=== PATIENT | male | born 1990 | race Caucasian/White ===

== ENCOUNTER → 2019-02-09 11:49 | Outpatient (CLI) | payer OTHER, MEDICAID, SELFPAY ==
[2019-02-09 12:50] LABS: Hematocrit 43.3 % (40-54); Hemoglobin 14.8 g/dL (13.0-16.5); Mean Corp Hgb Conc 34.2 g/dL (32-36); Mean Corpuscular Hgb 29.1 pg (27.0-32.0); Mean Corpuscular Volume 85.2 fL (80-94); Mean Platelet Vol. 11.2 fl (6.2-12.0); Platelet Count 159 K/mm3 (150-450); RBC Distribution Width CV 12.4 % (11.6-14.6); RBC Distribution Width SD 38.5 fl (35.1-43.9); Red Blood Count 5.08 M/mm3 (4.6-6.2); White Blood Count 3.2 K/mm3 (4.4-11.0)
[2019-02-09 13:22] LABS: Vitamin B12 734 pg/mL (211-911); Vitamin D,25 Hydroxy 38.8 ng/mL (29.95-100.01)
[2019-02-09 13:24] LABS: ALB/GLOB Ratio 1.3 RATIO (0.9-2.4); AST(SGOT) 19 U/L (15-37); Alanine Aminotransfer ALT/SGPT 29 U/L (16-61); Albumin, Serum 4.3 g/dL (3.2-5.0); Alkaline Phosphatase 98 U/L (45-117); Anion Gap 6 (5-15); BUN 18 mg/dL (7-18); BUN/Creat Ratio 16.2 RATIO (10-20); Calcium,Total 9.2 mg/dL (8.5-10.1); Chloride 106 mmol/L (98-107); Creatinine, Serum 1.11 mg/dL (0.70-1.30); EST Glomerular Filtration Rate 85 mL/min (>60); Est Glom Filt Rate - Afr Amer 102 mL/min (>60); Globulin 3.3 g/dL (2.2-4.2); Glucose 99 mg/dL (74-106); Potassium 3.9 mmol/L (3.5-5.1); Prolactin 25.4 ng/mL; Protein, Total 7.6 g/dL (6.4-8.2); Sodium Level 140 mmol/L (136-145); Thyroid Stim Hormone (TSH) 0.88 uIU/mL (0.358-3.74)
== END ==
PROVIDERS: Family Provider Family Medicine; PCP Family Medicine; Referring Provider Psychiatry & Neurology Psychiatry; Visit Provider Psychiatry & Neurology Psychiatry
DX: Z79.899 Other long term (current) drug therapy (principal); F19.10 Other psychoactive substance abuse, uncomplicated; R53.83 Other fatigue
CPT/HCPCS: 36415; 80053; 82306; 82607; 84146; 84443; 85027

== ENCOUNTER → 2021-03-14 08:40 | Outpatient (CLI) | payer MEDICAID, SELFPAY | PROVIDERS: PCP Family Medicine; Referring Provider Physician Assistant; Visit Provider Physician Assistant | DX: Z11.52 Encounter for screening for COVID-19 (principal) | CPT/HCPCS: 87635; U0005; U0003 ==

== ENCOUNTER 2021-07-13 22:43 | Emergency (ER) | payer MEDICAID, SELFPAY ==
[2021-07-13 22:43] VITALS: BP 125/84; PULSE 123; RESP 16; TEMP 36.5; O2SAT 99; BMI 26.4
--- NOTE | 2021-07-13 23:04 | EX.ED.DYSGE1 ---
HPI History of Present Illness Chief Complaint: Other, Pain/Inj Narrative Narrative: Patient presents with concern with bumps behind his left ear and on his left neck. He states that he had a sore throat yesterday and was seen at [facility]. He was diagnosed with allergies. His sore throat resolved. He denies any fever or chills. No nausea or vomiting. He states his strep test was also negative. He became concerned because he noticed a bump behind his left ear, and one on his neck that is mildly tender to touch. He states that he was laying in bed and feeling these bumps. Additionally, he shaved his head yesterday with hair clippers, and had ingrown hairs that he had been popping. He presents because of the concern of the bumps on his neck and behind his ear. He wants to know what they are and thinks that they are probably inflamed lymph nodes. [facility] Medical History Bipolar 1 disorder, depressed Murmur Physical exam, pre-employment Tourettes syndrome Home Medications oxycodone-acetaminophen 1 - 2 tab PO Q4H PRN PRN #12 tab 10/10/13 [Rx Last Taken Unknown] clomipramine 50 mg PO QHS 07/13/21 [History Last Taken Unknown] clonazepam 0.5 mg PO DAILY PRN 07/13/21 [History Last Taken Unknown] fluphenazine HCl 5 mg PO DAILY 07/13/21 [History Last Taken Unknown] Allergy/AdvReac Type Severity Reaction Status Date / Time amoxicillin Allergy Hives Verified 07/13/21 22:46 Social History Smoking Status: Never smoker ROS ROS ED ROS Narrative Constitutional: No fever, no chills. HEENT: No sore throat. No neck pain. No loss of vision. No rhinorrhea. Bumps behind left ear and on left neck. Cardiovascular: No chest pain. No palpitations. No pedal edema. Respiratory: No cough, no shortness of breath. Abdominal: No abdominal pain. No nausea. No vomiting. Genitourinary: No dysuria. No hematuria. Musculoskeletal: No myalgias. No arthralgias. Neurologic: No headaches. No dizziness. No lightheadedness. Skin: No rash. No change in color. Ingrown hairs on head. Psychiatric: No depression. No anxiety. EXAM Physical Exam Narrative Exam Narrative: Afebrile. Vital signs noted. Nontoxic-appearing. HEENT: Normocephalic. Atraumatic. PERRL, EOMI. Neck soft and supple. No point tenderness or step off. Areas of excoriation on left side of scalp, no fluctuance or crepitance. Noted posterior auricular lymph node that is movable. Swollen lymph node on cervical lymph chain. No erythema. Airway patent. No drooling or trismus. Cardiovascular: Mild tachycardia. No murmurs, rubs, or gallops appreciated. Respiratory: No tachypnea. Lungs clear to auscultation bilaterally. Gastrointestinal: Abdomen soft, nontender, with normoactive bowel sounds. No rebound or guarding. Neurological: Awake. Alert. Nonfocal, nonlateralizing. Skin: No rash. Normal color. No pallor. Musculoskeletal: No pedal edema. Full range of motion extremities. Const Vital Signs: 07/13/21 22:43 07/13/21 22:54 Temperature 97.7 F L Temperature Source Temporal Pulse Rate 123 H Respiratory Rate 16 Respiratory Effort Normal Non-Labored Respiratory Pattern Normal Blood Pressure 125/84 H Blood Pressure Mean 97 Pulse Ox 99 Oxygen Delivery Method Room Air MDM MDM MDM Narrative Medical decision making narrative: I feel that the patient has mild folliculitis from shaving his head with clippers yesterday. The patient does have past medical history of anxiety and takes clonazepam. I do feel his tachycardia might be explained by his anxiety over this. I do not feel any testing is indicated. He was reassured. I do feel that these are reactionary lymph nodes from a simple folliculitis. I do not feel that he needs antibiotics at this point. He was told to apply warm compresses. He will follow-up with his primary care provider. Return instructions were reviewed. Disposition is discharged home in stable condition. Discharge Plan Triage Chief Complaint: Other, Pain/Inj ED Provider: Provider,Ed Physician Dx/Rx/DC Orders Clinical Impression: Folliculitis, Lymphadenitis Instructions: ED Adenitis Cervical No Abx Tx, ED Folliculitis Prescriptions: No Action oxycodone-acetaminophen 1 TABLET tablet 1 - 2 tab PO Q4H PRN PRN (Reason: Pain) Qty: 12 RF: 0 fluphenazine HCl 5 mg tablet 5 mg PO DAILY RF: 0 clomipramine 50 mg capsule 50 mg PO QHS RF: 0 clonazepam 0.5 mg tablet 0.5 mg PO DAILY PRN (Reason: Anxiety) RF: 0 Primary Care Provider: David Irving Referrals: David Irving DO [Primary Care Provider] - 1 Week Disposition Disposition: Home, Self Care
== END 2021-07-13 23:11 | disposition home or self-care (01) ==
PROVIDERS: Emergency Provider Emergency Medicine; PCP Student in an Organized Health Care Education/Training Program; Visit Provider Emergency Medicine
DX: L73.9 Follicular disorder, unspecified (principal); F31.9 Bipolar disorder, unspecified; F41.9 Anxiety disorder, unspecified; L02.821 Furuncle of head [any part, except face]; I88.9 Nonspecific lymphadenitis, unspecified
CPT/HCPCS: 99282

== ENCOUNTER 2021-10-16 22:15 | Emergency (ER) | payer MEDICAID, SELFPAY ==
[2021-10-16 22:16] VITALS: BP 133/89; PULSE 106; RESP 16; TEMP 36.2; O2SAT 100; BMI 26.4
--- NOTE | 2021-10-16 22:59 | EDS_ITS ---
HPI History of Present Illness Chief Complaint: Upper Extremity Injury Narrative Narrative: Patient is a 31-year-old male with past medical history of Tourette's. He states that over the past few days he has had increasing pain to his right shoulder region with no known trauma. He states that with the pain he will have intermittent numbness and tingling down to his hand. He states that he noticed when he was working out a few days ago that he cannot lift as much with his right arm as his left and noted pain in the shoulder region. He states he has tried [id number] medication with minimal symptom improvement and with the persistent symptoms comes in for evaluation [facility] Medical History Bipolar 1 disorder, depressed Murmur Physical exam, pre-employment Tourettes syndrome Home Medications clonazepam 0.5 mg tablet (Klonopin) 0.5 mg PO DAILY PRN Anxiety 07/13/21 [History Last Taken Unknown] fluphenazine HCl 5 mg tablet 5 mg PO DAILY 07/13/21 [History Last Taken Unknown] divalproex 500 mg tablet,extended release 24 hr 1 tab PO DAILY 10/16/21 [History Last Taken Unknown] methocarbamol 500 mg tablet 1,000 mg PO 4X/DAY PRN PRN Muscle pain/spasm #56 tabs 10/16/21 [Rx Last Taken Unknown] Allergy/AdvReac Type Severity Reaction Status Date / Time amoxicillin Allergy Hives Verified 10/16/21 22:21 Social History Smoking Status: Never smoker [facility] ED Constitutional Constitutional ED: Denies chills or fever(s) ENT ENT ED: Denies sore throat Cardiovascular Cardiovascular: Denies chest pain Respiratory/Chest Respiratory/Chest: Denies cough or dyspnea Gastrointestinal Gastrointestinal: Denies abdominal pain, diarrhea, nausea or vomiting Genitourinary Genitourinary ED: Denies dysuria Musculoskeletal Musculoskeletal: Reports other Details: Positive right shoulder pain ; Denies back pain, myalgias or neck pain Integumentary Denies rash Neurologic Neurologic: Reports paresthesias; Denies headache(s) Hematologic/Lymphatic Hematologic/Lymphatic: Denies easy bleeding or easy bruising EXAM Physical Exam Const Vital Signs: 10/16/21 22:16 Temperature 97.1 F L Temperature Source Temporal Pulse Rate 106 H Respiratory Rate 16 Blood Pressure 133/89 H Blood Pressure Mean 103 Pulse Ox 100 Oxygen Delivery Method Room Air Positive well nourished and well developed General Appearance ED: well developed HEENT Reports moist mucous membranes Eyes PERRL and EOMs intact bilaterally Neck full ROM and supple Neck Narrative: No bony deformity or step-off of the cervical spine no midline pain with palpation. Negative Spurling sign bilaterally Resp normal respiratory effort and clear to auscultation bilaterally Cardio regular rate and regular rhythm Cardio Narrative: Radial pulses are plus 2 out of 4 bilaterally are equal and symmetric Extremity Extremity Narrative: Right upper extremity is neurovascularly intact; AIN/PIN are intact and normal. Active range of motion is decreased secondary to pain. There is pain on palpation over top the coracoid process indicating irritation to the proximal biceps tendon. Patient also has a positive speeds test. He also has increased pain with external rotation and front shoulder raising indicating possible supraspinatus tendon injury associate with the rotator cuff. Otherwise the compartments are soft and there is no overlying soft tissue changes to suggest trauma or infection Neuro oriented x3 and CN's II-XII intact bilaterally Sensorium / Orientation: alert Psych mental status grossly normal Skin no rashes or lesions noted MDM MDM MDM Narrative Medical decision making narrative: Patient presented to the ER in no acute distress with no report or signs of trauma. Clinically he has pain over top the coracoid process indicating proximal bicep tendinitis. However as he has pain with external rotation or front shoulder raising this also raises concern for inflammation or small tear to the supraspinatus tendon of the rotator cuff. We discussed possible x-ray secondary to his pain but as there is been no direct trauma and he would require an MRI to evaluate the rotator cuff we do not feel that is necessary for images at this time. Patient will be placed on symptomatic medications for the tendinitis and possible tendon injury and been instructed on rehab exercises but otherwise at this time is safe for discharge as there is no obvious signs of infection trauma or neurologic event. Discharge Plan Triage Chief Complaint: Upper Extremity Injury ED Provider: Richard Paul Dx/Rx/DC Orders Clinical Impression: Right rotator cuff tendonitis, Biceps tendinitis of right upper extremity Instructions: Rotator Cuff Injury, Biceps Tendonitis Proximal, Rotator Cuff Tendon Tear Prescriptions: New methocarbamol 500 mg tablet 1,000 mg PO 4X/DAY PRN PRN (Reason: Muscle pain/spasm) Qty: 56 1RF No Action fluphenazine HCl 5 mg tablet 5 mg PO DAILY clonazepam [Klonopin] 0.5 mg tablet 0.5 mg PO DAILY PRN (Reason: Anxiety) divalproex 500 mg tablet extended release 24 hr 1 tab PO DAILY Label Comments: take 1 tablet by mouth once daily Primary Care Provider: David Irving Referrals: David Irving DO [Primary Care Provider] - Activity Restrictions/Additional Instructions: Your history and exam is consistent with rotator cuff tear versus inflammation. Please perform rehab exercises and take your medication as directed to help control symptoms. If they persist please talk to her family doctor about an MRI to further assess the situation Disposition Disposition: Home, Self Care Discharge Date/Time: 10/16/21 23:39
[2021-10-16] MEDS: Orphenadrine 60 MG/2 ML Ampul IM (23:12)
[2021-10-16] MEDS: Ketorolac 30 MG/ML Syringe IM (23:12)
== END 2021-10-16 23:39 | disposition home or self-care (01) ==
PROVIDERS: Emergency Provider Emergency Medicine; PCP Student in an Organized Health Care Education/Training Program; Visit Provider Emergency Medicine
DX: M75.21 Bicipital tendinitis, right shoulder (principal); F31.9 Bipolar disorder, unspecified; F95.2 Tourette's disorder; Z79.899 Other long term (current) drug therapy; M75.81 Other shoulder lesions, right shoulder; X58.XXXA Exposure to other specified factors, initial encounter
CPT/HCPCS: 96372; 99282

== ENCOUNTER 2021-10-20 20:43 | Emergency (ER) | payer MEDICAID, SELFPAY ==
[2021-10-20 20:46] VITALS: BP 159/85; PULSE 106; RESP 14; TEMP 36.6; O2SAT 100; BMI 25.7
--- NOTE | 2021-10-20 21:00 | EDS_ITS ---
HPI HPI - Psych History of Present Illness Chief Complaint: Suicidal Informant: patient and parent Onset/Context/Timing Onset: Weeks Context: Gradual Onset Timing: Continuous Current Severity: Mild Maximum Severity: Moderate Associated Symptoms Associated Symptoms - Psych: Positive for Depressed Narrative Narrative: 31-year-old male has a history of recently being diagnosed with bipolar disorder, depression, anxiety, Tourette's and OCD. He is currently under the care of the [facility] and the last several months they have been adjusting his medications. Over the last week he and his mom is at bedside states that he has been more more depressed. He has made suicidal threats. He denies any attempt. He is given his family all his knives. There are guns in the house but they are locked up and he does not have access to the posada. He states he would shoot himself if available. He has never had a mental health admission. He has had no recent hospitalization. He denies any prior attempts. Prior similar symptoms: Yes Recent Illness/Hospitalization: No [facility] Medical History Bipolar 1 disorder, depressed Murmur Physical exam, pre-employment Tourettes syndrome Home Medications clonazepam 0.5 mg tablet (Klonopin) 0.5 mg PO DAILY PRN Anxiety 07/13/21 [History Last Taken Unknown] fluphenazine HCl 5 mg tablet 5 mg PO DAILY 07/13/21 [History Last Taken Unknown] divalproex 500 mg tablet,extended release 24 hr 1 tab PO DAILY 10/16/21 [History Last Taken Unknown] methocarbamol 500 mg tablet 1,000 mg PO 4X/DAY PRN PRN Muscle pain/spasm #56 tabs 10/16/21 [Rx Last Taken Unknown] Allergy/AdvReac Type Severity Reaction Status Date / Time amoxicillin Allergy Hives Verified 10/20/21 20:49 Social History Smoking Status: Never smoker ROS ROS ED ROS Narrative Denies recent illness. Review of Systems ROS Unobtainable: Denies due to encephalopathy Constitutional Constitutional ED: Denies chills or fever(s) Eyes Eyes: Denies blurry vision ENT ENT ED: Denies ear pain Cardiovascular Cardiovascular: Denies chest pain Respiratory/Chest Respiratory/Chest: Denies cough Gastrointestinal Gastrointestinal: Denies abdominal pain Genitourinary Genitourinary ED: Denies dysuria Musculoskeletal Musculoskeletal: Denies arthralgias Integumentary Denies abscess Neurologic Neurologic: Denies headache(s) Psychiatric Psychiatric: Reports anxiety, depression, suicidal ideation and suicidal thoughts Endocrine Endocrinology: Denies polydipsia Hematologic/Lymphatic Hematologic/Lymphatic: Denies easy bleeding Allergic/Immunologic Allergic/Immunologic ED: Denies mouth swelling EXAM Physical Exam Narrative Exam Narrative: Well-appearing 31-year-old male. Vital signs stable afebrile. No distress. Mom at bedside. H EENT exam unremarkable atraumatic. Neck nontender no trauma. Lungs clear to auscultation. Heart regular rhythm rate about 105 no murmur. Chest wall nontender. Abdomen soft nontender. Moving all 4 extremities. Nontender no deformity. No track kemp. No lacerations. Back nontender. Neurologically is awake and alert with no focal motor deficits. Patient is depressed. But he is awake and alert. He makes eye contact. He is forthcoming with information. Currently he is calm. He is interacting appropriately. Const Vital Signs: 10/20/21 20:46 Temperature 97.9 F Temperature Source Temporal Pulse Rate 106 H Respiratory Rate 14 Blood Pressure 159/85 H Blood Pressure Mean 109 Pulse Ox 100 Oxygen Delivery Method Room Air Positive well nourished and well developed; Negative for obese, cachectic, contractures or unkempt General Appearance ED: well developed; Negative for unkempt, cachectic, contractures or pallor Nutritional Appearance: Negative for cachectic or obese HEENT Reports moist mucous membranes normocephalic; Negative for atraumatic or trauma Eyes PERRL and EOMs intact bilaterally General Eye ED: Negative for pale conjunctiva or scleral icterus Neck no lymphadenopathy, supple and no JVD General: Negative for tenderness Resp normal respiratory effort and clear to auscultation bilaterally Effort and Inspection: Negative for retractions Auscultation: Negative for rales, rhonchi or wheezes Cardio S1 normal heart sound, S2 normal heart sound and no murmurs Palpation: Negative for other Rate: tachycardic; Negative for regular rate or bradycardia Rhythm: regular rhythm; Negative for abnormal rhythm GI non-tender, non-distended and no masses Inspection: Negative for abdominal distention Auscultation: normoactive bowel sounds Palpation: soft; Negative for tender or guarding Back/Spine no CVA tenderness General Back: Negative for CVA tenderness Cervical Spine: Negative for cervical spine tenderness Thoracic Spine / Upper Back: Negative for thoracic spinal tenderness Lumbar Spine / Lower Back: Negative for lumbar spinal tenderness Coccyx: Negative for other Extremity normal to inspection General Extremety ED: Negative for edema or tenderness General Extremity: Negative for edema Neuro oriented x3, CN's II-XII intact bilaterally and no sensory deficits noted Sensorium / Orientation: alert, oriented to person, oriented to place and oriented to time; Negative for orientation impaired, confused, lethargic or stuporous Motor Exam: strength 5/5 throughout Psych mental status grossly normal, thought process normal, cooperative, affect normal, speech normal, activity/motor behavior normal, denies hallucinations and denies homicidal ideation; Negative for denies suicidal ideation Appearance: grossly normal, appropriate and well kempt; Negative for unkempt, disheveled, bizarre or intubated Attitude: calm, engaged, No paranoid, No withdrawn, No bizarre, No uncooperative, No evasive, No guarded, No belligerent, No agitated, No aggressive and No hostile Activity / Motor Behavior: appropriate eye contact; Negative for psychomotor agitation, psychomotor slowing, fidgetting, hyperactive, disorganized, restless, mannerisms, stereotypies or avoids eye contact Speech: normal speech, No incoherent, No excessive, No minimal, No slow and No rapid Mood & Affect: depressed Thought Process: normal thought process, No disorganized, No confused, No confabulating, No flight of ideas and No illogical Thought Content: suicidality Memory / Cognition: memory grossly intact Insight: insight good Judgement: judgement good Skin General Skin Exam: Negative for jaundice or pallor Lesions: no lesions Rashes: no rashes Trauma: Negative for abrasion Wounds: Negative for amputation MDM MDM MDM Narrative Medical decision making narrative: 31-year-old male history of bipolar disorder. No prior suicide attempt. More more depressed over the last week with suicidal thoughts and a plan to shoot himself. He has willingly turned over his knives to his family. Guns are at home but they are locked up. He will undergo an ED mental health evaluation by crisis. Labs are being obtained. He is medically cleared at this time. Lab Data Attestation: I reviewed the patient's lab results. Lab results narrative: CBC normal. White count 8. H&H 15 and 41. Electrolytes unremarkable gap of 4 BUN 25 creatinine 1.2. Glucose 93. Tox screen negative. Alcohol negative. Labs: Laboratory Results - last 24 hr 10/20/21 10/20/21 10/20/21 21:10 21:10 21:14 WBC 8.2 RBC 5.19 Hgb 15.5 Hct 44.1 MCV 85.0 MCH 29.9 MCHC 35.1 RDW Std Deviation 38.2 RDW Coeff of [place] 12.4 Plt Count 216 MPV 10.7 Immature Gran % (Auto) 0.100 Neut % (Auto) 56.9 Lymph % (Auto) 35.4 [place] % (Auto) 5.0 Eos % (Auto) 2.0 Baso % (Auto) 0.6 Absolute Neuts (auto) 4.7 Absolute Lymphs (auto) 2.90 Nucleated RBC % 0 Sodium 140 Potassium 3.7 Chloride 107 Carbon Dioxide 29.0 Anion Gap 4 L BUN 25 H Creatinine 1.25 Estim Creat Clear Calc 101.38 Est GFR (MDRD) Af Amer 87 Est GFR (MDRD) Non-Af 72 BUN/Creatinine Ratio 20.0 Glucose 93 Calcium 9.1 Urine Opiates Screen NEGATIVE Urine Methadone Screen NEGATIVE Ur Barbiturates Screen NEGATIVE Ur Phencyclidine Scrn NEGATIVE Ur Amphetamines Screen NEGATIVE MDMA (Ecstasy) Screen NEGATIVE U Benzodiazepines Scrn NEGATIVE Urine Cocaine Screen NEGATIVE U Cannabinoids Screen NEGATIVE Ur Drug Screen Comment Discharge Plan Triage Chief Complaint: Suicidal ED Provider: Simeon Doty Dx/Rx/DC Orders Clinical Impression: Depression, Depression with suicidal ideation, History of bipolar disorder, History of Jorge de la Tourette's syndrome Prescriptions: No Action fluphenazine HCl 5 mg tablet 5 mg PO DAILY clonazepam [Klonopin] 0.5 mg tablet 0.5 mg PO DAILY PRN (Reason: Anxiety) divalproex 500 mg tablet extended release 24 hr 1 tab PO DAILY Label Comments: take 1 tablet by mouth once daily methocarbamol 500 mg tablet 1,000 mg PO 4X/DAY PRN PRN (Reason: Muscle pain/spasm) Qty: 56 1RF Primary Care Provider: David Irving Referrals: David Irving, [Primary Care Provider] - Disposition Disposition: Psychiatric Hospital or Unit
--- NOTE | 2021-10-20 21:03 | ED.RN ---
PER DR AGUIRRE NO NEED FOR A SITTER AT THIS TIME
[2021-10-20 21:23] LABS: Absolute Neutrophil Count 4.7 X10^3/uL (2.0-7.7); Basophil# 0.05 X10^3/uL; Basophil% 0.6 % (0-1); Eosinophil# 0.16 X10^3/uL; Hematocrit 44.1 % (40-54); Hemoglobin 15.5 g/dL (13.0-16.5); Lymphocyte % 35.4 % (19-41); Mean Corp Hgb Conc 35.1 g/dL (32-36); Mean Corpuscular Hgb 29.9 pg (27.0-32.0); Mean Platelet Vol. 10.7 fl (6.2-12.0); Monocyte# 0.41 X10^3/uL; NRBC Flagged by Analyzer 0 % (0-5); Neutrophil # 4.66 X10^3/uL (2.7-7.7); Neutrophil % 56.9 % (47-70); Platelet Count 216 K/mm3 (150-450); RBC Distribution Width CV 12.4 % (11.6-14.6); RBC Distribution Width SD 38.2 fl (35.1-43.9); Red Blood Count 5.19 M/mm3 (4.6-6.2); White Blood Count 8.2 K/mm3 (4.4-11.0)
[2021-10-20 21:36] LABS: Anion Gap 4 (5-15); BUN 25 mg/dL (7-18); Calcium,Total 9.1 mg/dL (8.5-10.1); Chloride 107 mmol/L (98-107); Creatinine, Serum 1.25 mg/dL (0.70-1.30); EST Glomerular Filtration Rate 72 mL/min (>60); Est Glom Filt Rate - Afr Amer 87 mL/min (>60); Estimated Creatinine Clearance 101.38 ml/min; Glucose 93 mg/dL (74-106); Potassium 3.7 mmol/L (3.5-5.1); Sodium Level 140 mmol/L (136-145)
[2021-10-20 21:38] LABS: Amphetamine Urine VISTA NEGATIVE (<1000 ng/mL); Barbiturate Urine VISTA NEGATIVE (< 200 ng/mL); Benzodiazepine Urine VISTA NEGATIVE (< 200 ng/mL); Cocaine Urine VISTA NEGATIVE (< 300 ng/mL); Ecstacy Urine VISTA NEGATIVE (< 500 ng/mL); Methadone Urine VISTA NEGATIVE (< 300 ng/mL); PCP Urine VISTA NEGATIVE (< 25 ng/mL); THC Urine VISTA NEGATIVE (< 50 ng/mL); Vista UDS pH Range 6
[2021-10-20 22:00] VITALS: PULSE 18
[2021-10-20 22:08] LABS: Alcohol, Blood (Medical)-Serum < 3.0 mg/dL
--- NOTE | 2021-10-20 22:17 | NURSING ---
PAGED CRISIS AT [phone]
[2021-10-20 23:00] VITALS: RESP 16
[2021-10-21] VITALS: RESP 18
[2021-10-21 01:00] VITALS: BP 145/81; PULSE 77; RESP 16; TEMP 36.8; O2SAT 97
[2021-10-21 02:00] VITALS: RESP 18
[2021-10-21 03:00] VITALS: RESP 16
[2021-10-21 03:38] VITALS: RESP 16
== END 2021-10-21 03:39 | disposition home or self-care (01) ==
PROVIDERS: Emergency Provider Emergency Medicine; PCP Student in an Organized Health Care Education/Training Program; Visit Provider Emergency Medicine
DX: F31.9 Bipolar disorder, unspecified (principal); R45.851 Suicidal ideations; F95.2 Tourette's disorder; Z79.899 Other long term (current) drug therapy
CPT/HCPCS: 80048; 80307; 82077; 85025; 99282

== ENCOUNTER 2021-10-28 08:00 | Outpatient (RCR) | payer MEDICAID, SELFPAY ==
--- NOTE | 2021-10-28 09:00 | BH.SGPN.GN ---
Behaviors/Verbalizations/Mental Status: [] Eye contact is good. Motor activity is appropriate. Appearance is casual. Speech is Appropriate. Mood is anxious. Affect is congruent. Thoughts are linear and logical. No evidence of psychosis. Reviewed daily check in sheet and pt reports 1/5 for suicidal thoughts and 1/5 for intent. [place] Screening was completed prior to group this AM. Client Response/Progress/Benefit: [] Pt participated at times during the group discussions. Attentive. Daily symptom tracker notes 4/5 for anxiety, 3/5 for depression and 2/5 for irritability. Shared with the group that this is her first day in IOP level of care. States that he is her to work on his depression and anxiety. I've gone through some trials in the past few weeks. He did not elaborate on this. Hoping that I can find some things that work. Emtions have been over the top. Group empathized and provided some feedback and guidance for his first day/week in the program which was beneficial. Will continue in IOP to maintain safety, increase healthy coping skills, and prevent decompensation. Narrative Note: []
--- NOTE | 2021-10-28 10:10 | BH.SGPN.GN ---
Behaviors/Verbalizations/Mental Status: [] Client alert and oriented, neatly dressed and groomed. Eye contact good. Motor activity appropriate. Speech normal. Affect congruent, mood euthymic and anxious, Thoughts linear, logical, no signs of hallucinations or delusions. Client Response/Progress/Benefit: [] Client's getting adjusted to group environment with it being his first day in program. Client was an engaged participant AEB client listening attentively to others. Attentive during psychoeducation on communication styles. Client identified they most often use aggressive communication,especially with his dad. Client reports being aggressive impacts client by causing no progress with his dad when faced with conflict. Benefited from increased awareness of different communication barriers, styles, and the importance of communicating effectively to improve mental wellness. Will continue IOP tx to improve emotional regulation skills, increase self-awareness, and improve daily functioning. Narrative Note: []
--- NOTE | 2021-10-28 11:10 | BH.SGPN.GN ---
Behaviors/Verbalizations/Mental Status: []Client alert and oriented, casually dressed and groomed. Eye contact good. Motor activity appropriate. Speech within normal limits. Affect congruent, mood euthymic and anxious. Thoughts linear, logical, no signs of hallucinations or delusions Client Response/Progress/Benefit: []Client responded well to session AEB client listening attentively to others and providing input during group discussion on the pay offs and costs of the different communication styles. Client recognizes negative impact on relationships when he doesn't use healthy communication style. Client did well in the activity to be assertive and ask for feedback. Recognizes if group wasn't assertive in activity, they wouldn't have been successful. Attentive during psychoeducation on interpersonal DBT skill KATYA. Client set a goal to work on negotiating and indicaing learning to know when to quit and compromise. Client seemed to benefit from increasing awareness of healthy strategies to improve communication. First day of IOP and will continue IOP tx to improve emotional regulation skills, increase self-awareness, and improve daily functioning. Narrative Note: []
--- NOTE | 2021-10-30 09:00 | BH.SGPN.GN ---
Behaviors/Verbalizations/Mental Status: []Pt alert and oriented, casually dressed and appropriately groomed. Eye contact good. Motor activity appropriate. Speech WNL. Affect constricted, mood dysthymic. Thoughts linear, logical, no signs of hallucinations or delusions. Reviewed pt?s symptom tracker, no risk for suicidal ideation, plan, or intent. Client Response/Progress/Benefit: []Client respond well to session as evidenced by listening attentively to others and sharing thoughts and feelings. Client reporting and self positive as being more calm with his parents in the last couple days. Client stated current stressor is feeling more depressed and having decreased motivation in the last couple days. Client reported after his medication change about a week ago he had improved mood for about 5 days but the last 2 days he feels like he is declining again. Client reported he has started to sleep more than usual. Client seemed to benefit from support from peers. Client to continue IOP to improve daily functioning, challenge negative thoughts, and prevent decompensation.
--- NOTE | 2021-10-30 10:08 | BH.SGPN.GN ---
Behaviors/Verbalizations/Mental Status: []Pt alert and oriented, casually dressed and groomed. Eye contact good. Motor activity appropriate. Speech within normal limits. Affect constricted, mood anxious and depressed. Thoughts linear, logical, no signs of hallucinations or delusions Client Response/Progress/Benefit: []Pt responded well to session AEB sharing and listening attentively to others. pt was engaged throughout group discussion defining fixed mindset and what it can look like. Group discussed how fixed mindset affects mental health and why we use fixed thoughts. Pt participated in experiential activity encouraging pts to find solutions to a seemingly impossible task. Pt identified personal fixed thoughts in session which included ?I?m done with this, it?s not going to work anyway. I don?t deserve the help. This is how I?ve always been no one can fix me.? Pt gained awareness that these thoughts are all absolutes that feel true, but are distortions. Pt appeared to benefit from increased knowledge of fixed mindset and self-awareness of personal fixed thoughts. Will continue IOP tx to prevent decompensation, gain healthy coping skills, and combat distorted thought patterns. ? Narrative Note: []
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
[2021-10-30 10:48] VITALS: BP 137/92; PULSE 67
--- NOTE | 2021-10-30 11:10 | BH.SGPN.GN ---
Behaviors/Verbalizations/Mental Status: [] Eye contact is good. Motor activity is appropriate. Appearance is casual. Speech is Appropriate. Mood is anxious. Affect is congruent. Thoughts are linear and logical. No evidence of psychosis. Client Response/Progress/Benefit: [] Pt was an active participant in group discussion. Participated in their small group and was attentive during group psychoeducation on growth mindset vs fixed mindset. Pt and peers identified and shared examples of growth mindset which included; things can change, situations can improve, feedback whether positive or negative can be helpful, etc. Pt participated in interactive discussion and practiced changing a fixed mindset thought to a growth mindset thought. Pt reports fixed mindset thought as I don't deserve help and was able to reframe to growth mindset Help is available to everyone and I'm one who needs it Benefited from increased awareness and insight of growth mindset and strategies to change from fixed mindset thoughts to growth mindset thoughts. Plan to continue in IOP to prevent decompensation, increase healthy coping strategies, and maintain safety. Narrative Note: []
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
--- NOTE | 2021-10-30 12:51 | BH.DR.ITP ---
Initial Treatment Plan Patient Information Visit Information: ADMISSION DATE: EXPECTED LOS: 4-6 weeks Problems/Symptoms Problem #1:: Depression Symptom:: Sadness, anhedonia, decreased concentration, hopelessness, worthlessness, low energy, biological disruption of sleep, passive thoughts of , recent fleeting suicidal ideation Problem #2:: Anxiety Symptom:: Worry, rumination, panic attacks, nightmares, flashbacks, avoidance
--- NOTE | 2021-10-31 09:00 | BH.SGPN.GN ---
Behaviors/Verbalizations/Mental Status: [] Eye contact is good. Motor activity is appropriate. Appearance is casual. Speech is Appropriate. Mood is anxious. Affect is congruent. Thoughts are linear and logical. No evidence of psychosis. Reviewed daily check in sheet and pt reports 1/5 for suicidal thoughts and 0/5 for intent. This has been baseline. Client Response/Progress/Benefit: [] Pt participated at times during the group discussions. Attentive. Emotion for today is hopeful. Daily symptom tracker notes 2/5 for anxiety and depression and a 3/5 for anger. Mental health win included implementing anger mgmt skills yesterday. I pulled myself away from a situation. Discussed how this was beneficial to his mental health and possible consequences if he choose to engage in argument rather than walking away. Stressors include trying to get better. He reports that he hopes to accomplish mental clarity through this program to help him maintain a job and become more independent. Check-in was brief. Progress noted per pt report. Beneifted from group support, encouragement, and feedback. Will continue in IOP to maintain safety, stabilize mood, increased healthy coping, and prevent decompensation. Narrative Note: []
--- NOTE | 2021-10-31 10:10 | BH.SGPN.GN ---
Behaviors/Verbalizations/Mental Status: []Client alert and oriented, casual dress, hygiene tended to. Eye fair. Motor activity restless at times. Speech within normal limits. Affect constricted. mood dysthymic. Thoughts linear, logical, no signs of hallucinations or delusions. Client Response/Progress/Benefit: []Pt responded well to session AEB providing contributions at times during discussion and appeared to listen attentively to others. Pt appeared to connect well with the topic of resilience AEB nodding when others mentioned being flexible with change will help you move forward in life. Pt worked with the group during discussion of the costs of resisting change and the benefits of adapting to adversity. Attentive during psychoeducation on various posada factors in developing personal resilience. Pt worked in small group helping with identifying benefits of each factor in fostering resilience. Pt stated he struggles most with the resilience factor of nurturing a positive view of self. Pt seemed to benefit from increasing awareness of strategies to increase personal resilience and the impacts of resilience on managing mental health sx. Will continue IOP tx to promote the use of healthy coping skills, improve daily functioning and prevent decompensation. Narrative Note: []
--- NOTE | 2021-10-31 13:35 | BH.MTP_ITS ---
Master Treatment Plan - Patient Information Program Physician:: Corina Montanez Primary Therapist:: Jose Angel Tello - Psychiatric Diagnoses Psychiatric Diagnoses:: Major depressive disorder, recurrent, severe without psychosis. OCD. Tourette's syndrome Diagnosis Code(s):: F33.2 - Estimated LOS Estimated LOS (in weeks):: 6 Problem/Goal #1 - Problem/Goal #1 Stated Goal:: Client will reduce depressive symptoms, worthlessness, lack of concentration, suicidal ideations, and negative automatic thoughts AEB self- report and reduction in depression domain and suicidal domain on the DSM-5 outcome measurements. Description of Barriers: Limited coping skills, poor follow through with previous treatment, mental health stigma Functional Impact: Pt has not been able to maintain consistent employment due to mental health symptoms. Pt presented to ER on 10/21/21 due to depression and SI Goal Relevant Strengths/Supports: Appears motivated, kind, compassionate, empathetic, - Objectives Objective #1 Stated Objective: Client will identify 3-4 sources or triggers to suicidal ideations and emotional distress to increase insight. Interventions: Through individual and group counseling will help client identify distorted, negative beliefs about self and replace with more realistic, affirmative messages. Therapist will use CBT to help client increase insight to the connection between thoughts, emotions, and behaviors. Therapist will encourage client to practice thought challenging. Discharge Criteria: Will be able to identify 3-4 triggers to feelings or worthlessness, hopelessness, and SI and be able to identify skills to implement to cope. Target Date: 12/13/21 Review Date: 11/27/21 Objective #2 Stated Objective: Client will work with therapist to develop a ?crisis plan? which includes emergency telephone numbers, internal/external coping strategies for SI/overwhelming emotions, lists of supports, warning signs, positive aspects of life, and motivations.? Interventions: Through individual and group counseling pt will learn various coping skills for emotional dysregulation and crisis management strategies. Therapist will provide patient with safety plan worksheet and work with pt. to develop individualized plan Discharge Criteria: complete safety plan Target Date: 12/13/21 Review Date: 11/27/21 Problem/Goal #2 - Problem/Goal #2 Stated Goal:: Client will reduce overall frequency, intensity, and duration of anxiety to improve functioning AEB self-report and reduction of scores on the anxiety domain of the DSM-5 outcomes. Description of Barriers: Limited coping skills, poor follow through with previous treatment, mental health stigma Functional Impact: anxiety causing self-talk and ruminations have been primary cause to calling off work, leaving early, and overall poor performance. Goal Relevant Strengths/Supports: Appears motivated, kind, compassionate, empathetic, - Objectives Objective #1 Stated Objective: Client will identify 2-3 cognitive distortions that lead to rumination and learn 2-3 ways to manage these thoughts to better manage anxiety as shown by reduced DSM-5 scores for anxiety and self-report. Interventions: Through individual and group counseling will provide education on the most common cognitive distortions and teach client the connection between thoughts, emotions, and feelings. Therapist will assist client in identifying, challenging, and replacing dysfunctional thoughts with positive, more realistic thoughts Discharge Criteria: Able to identify common cognitive distortions and 3 strategies to reframe, challenge, and minimize impact of distortions on thoughts and feelings. Target Date: 11/27/21 Review Date: 12/13/21 Objective #2 Stated Objective: Implement calming and coping strategies to reduce overall anxiety and to cope with the experience of panic. Interventions: Through individual and group counseling will teach client coping skills to improve emotional regulation, mindfulness, and distress tolerance to help client cope with anxiety in the moment. Will provide education and discuss how panic attacks are ?false alarms? of danger, not medically dangerous, not a sign of weakness or craziness, common but often lead to unnecessary fear and avoidance: correct myths and misconceptions about panic symptoms (going crazy, dying, losing control) that contribute to fear and avoidance. Discharge Criteria: Able to identify and implement 3-4 coping skills to utilize in the moment for anxiety. Target Date: 11/27/21 Review Date: 12/13/21
--- NOTE | 2021-10-31 13:35 | BH.MDN_ITS ---
Multi-Disciplinary Note - Note 45-min Individual Time Started:: 11:15 Date: 10/31/21 Purpose of session/treatment goals addressed:: Reviewed progress and current symptoms. Gathered hx and worked with pt to identify goals for master treatment plan. Eye Contact:: Good Motor Activity:: Appropriate Appearance:: Casual Speech:: Rapid Mood:: Anxious Affect:: Congruent Thoughts:: Linear, Logical, No evidence of hallucinations/delusions noted Staff Interventions:: thought challenging, treatment planning Client Response:: Pt reports that IOP has been going well. Believes that he is gaining insight and awareness. Everyone is great. This is pt's 3rd IOP and he has been consistent so far. He is quiet in most groups however appears attentive AEB by note-taking. When asked what goals that he had for IOP level of care pt reports he wants to decrease impulsive decisions ... be less irritable ... and lower my depression and anxiety. I reports constant negative automatic thoughts that he is worthless and a failure. He wants to be financially independent and maintain consistent employment however has struggled due to his mental health. He not been able to keep a job for longer than 6 months due to his anxiety. He shared that at his jobs he would sit in the parking lot and be overwhelm with negative automatic thoughts to the point where he would simply leave. Numerous cognitive distortions reported during the session. Receptive to education. Worsening depression, low self-worth and increased anxiety in the past several months which was triggered by traumatic anabaptism experience. He reports that he frequently compares himself to others throughout the day (mainly through social media). Risks/Concerns:: Denies active suicidal ideations, plan, or intent. Feels hopeful today. Progress Toward Goals/Plan:: Limited progress as this is pt's 3rd day at [facility]. Consistently attends treatment and appears motivated. Has struggles with mood instability for the past 10 years which he reports are triggered by negative automatic thoughts regarding his inability to maintain employment and not rely on parents' financially. Very poor self-esteem. Also reports low frustration tolerance and limited coping skills for emotion dysregulation. Plan is to continue in IOP to maintain safety, prevent decompensation, and increase healthy coping skills. Was given assignment to review list of cognitive distortions and to [place] 3 that he uses frequently. Time Stopped:: 11:55
--- NOTE | 2021-10-31 13:35 | BH.PSA ---
Source of Information - Presenting Problems/Circumstances Problems, Referral Source, Mental Status, Client: Pt was referred to [facility] by [facility] ER after presenting with SI and completing crisis assessment on 10/21/21. Pt reports that his anxiety, intrusive thoughts, and overall limited coping has resulted in an inability to maintain employment and function. Psychiatric Presentation - Psych Issues & Need for Admission Psychiatric Issues:: Depression, anxiety, panic attacks, intrusive thoughts, Tourettes, hc of OCD per pt, struggling to maintain employment due to mental health. Past Psychiatric History - MH Treatment Hx Treatment History: Pt is currently linked with psychiatrist at [facility]. He was seeing a counseling email marketing intern at the [facility] however was recently referred to a male therapist (is waiting for this referral to go through). First hospitalization:: none Most recent hospitalization:: none Medication Trials:: Yes ECT Therapy:: No Age of first mental health symptoms: Pt was dx'd with Tourette's and OCD as a child. He had a shoulder tic and obsessions/compulsions regarding cleanliness. Describe (age, circumstance, etc) any past hospitalizations: n/a Current providers for mental health treatment (counselor, psychiatrist, case management specialist, etc.): Dr. Lundberg- psychiatrist at [facility] Development & Family of Origin - Childhood Significant Childhood Events: no significant childhood events or trauma. - Family Who currently lives in your home?: Currently lives with his twin brother and his parents. Describe family composition:: Both parents are alive. Pt has a twin brother and older sister. - Family History Family Hx of Psychiatric or AOD Problems: He has a mother, sister and maternal grandmother with anxiety and depression. Addiction- 2 cousins Ethnicity - Culture Do you identify yourself with any particular cultural, ethnic background, or community?: No - Sexuality Sexual Orientation: Heterosexual Spirituality - Yarsanism Do you currently identify with any organized nondenominational?: Druze - Beliefs Is there a particular form of support from this community you can use for your recovery?: Yes - Pt reports that nondenominational is a major part of his life. Mental Status - Memory Recent Memory: Fair Remote Memory: Fair - Concentration Concentration: Fair - Eye Contact Eye Contact: Good - Speech Speech: Articulate - Thought Process Thought Process: Ruminations Insight: Fair Judgment: Fair Behavior: Anxious - Orientation Orientation: Time, Person, Place, Situation - Appearance Appearance: Appropriate - Mood Mood: Anxious, Sad - Affect Affect: Alert Suicide Assessment - Suicidal Ideation Have you ever felt like hurting yourself?: Yes Please explain:: Pt reports fleeting suicidal thoughts with thoughts of methods (gun) when overwhelmed. Presents to [facility] ER on 10/21/21. Physician Notification: If Active suicidal thoughts/Will not contract for safety is checked, contact physician and document in the Physician Notification section below. Violent Behavior/Abuse History - Homicidal Ideation Do you have any homicidal thoughts? If so, explain:: No Is there a known potential victim? If yes, who:: No - Abuse Have you ever been abused?: No - Life Events Are there any other significant life events?: Hardships - Has been unable to maintain a job due to his mental health., Family illness - grandparents are both ill and have been placed in Assisited Living. - Safety Do you ever feel threatened in your home? If yes, describe:: No Adult Social History - Age 20 to Present Describe your current support system:: brother, friend, and his mother. Substance Use - Substance Substance Use Type: None - social drinker 1-2 beers every couple weeks., Alcohol Leisure/Social Activities - Interests What do you enjoy or might be interested in learning about?: Pt reports that he would like to learn more coping skills for his anxiety and depression. 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 Service - Service Have you ever been in the ?: No Legal History - Records Have you had any past legal charges?: No Do you have any current legal charges?: No Have you ever been incarcerated? If yes, describe:: No - Court Orders Have you had any past court orders for psychiatric treatment?: No Do you have a present court order for psychiatric treatment?: No Problem Checklist - Current Problem Areas Problem List: Depressed mood/sad, Anxiety, Mood swings/hyperactivity Discharge Planning Needs - Anticipated Follow-Up Mental Health Center (Name/Phone Number):: [facility] [phone] Private Therapist/Psychiatrist:: Dr. Lundberg Family and Caregiver Contacts:: Alpa Mims- mother Release of Information Signed:: Yes Rn Chronic's Assessment - Client's Needs What are the client's feelings about the program?: Pt reports that IOP has been great and feels that the people are supportive and groups are beneficial. What are the client's goals?: Pt wants to get ahold of my anxiety so that he could maintain a consistent job. He states that due to his anxiety he has not maintained a job for more than 6 months. What are the client's strengths?: appears motivated, resilient, Diagnoses - Diagnoses Diagnosis #1:: MDD F33.2 Diagnosis #2:: OCD Diagnosis #3:: Tourettes Interpretive Summary - Interpretive Summary Interpretive Summary: Pt is a 31 year old single male referred by [facility] ER after crisis assessment on 10/21/21. Presented to the ER with suicidal thoughts, worsening depression, recent Bipolar dx, and worsening anxiety. Pt presented to the ER after calling police reporting that he couldn't keep himself safe. He was triggered due to rejection issues brought on by his outpatient therapist who referred him to a male therapist. He is vague regarding the reasons behind this. Increased SI with thoughts of methods (gun). Worsening mental health for the past 2 years with several triggers including conflict with father (whom he lives with) and confucianism trauma associated with a local [employer]uc[employer]. He reports a manic episode in which he slept very little, however recently has been depressed, low motivation, low energy, anhedonia, increased sleep, hopelessness, and worthlessness. Daily anxiety with racing thoughts, uncontrollable anxiety, and panic attacks. Denies HI or psychosis. Treatment Plan Recommendations - Recommendations Guidelines: Special needs identified to be included in the development of an individualized treatment plan regarding past psychiatric history and treatment, developmental events, family relationships/events/culture, past and/or current educational, occupational, social, and residential experience, and legal status. Recommendations:: Due to recent crisis assessment due to SI, fleeting SI, mental health impacting functioning, and limited benefit from traditional outpatient recommended IOP treatment.
--- NOTE | 2021-11-04 09:00 | BH.SGPN.GN ---
Behaviors/Verbalizations/Mental Status: []Eye contact is fair. Motor activity is appropriate. Appearance is casual. Speech is Appropriate. Mood is dysthymic. Affect is constricted. Thoughts are linear and logical. No evidence of psychosis. Reviewed daily check in sheet and indicates a 1/5, with 5 being severe, for suicidal ideation and a 1/5 for suicidal intent. Notified IOP individual therapist. Client did not appear to be imminent risk to harm self or others. future focused. Client Response/Progress/Benefit: []Client respond well to session as evidenced by listening attentively to others and sharing thoughts and feelings. Client reported mental health positive as using calming skills to manage frustration when around his dad which helped avoid any arguments. Client stated feeling frustrated that he is feeling off this morning. Client reported stressor is not sure his medication is working like he had been when first started to take it. Client seemed to benefit from support from peers. Client to continue IOP to increase healthy coping skills, increase confidence, and prevent decompensation. Narrative Note: []
--- NOTE | 2021-11-05 09:05 | BH.SGPN.GN ---
Behaviors/Verbalizations/Mental Status: [] Eye contact is good. Motor activity is appropriate. Appearance is casual. Speech is Appropriate. Mood is anxious. Affect is congruent. Thoughts are linear and logical. No evidence of psychosis. Reviewed daily check in sheet and no reports of suicidal ideations or intent. Client Response/Progress/Benefit: [] Pt participated when prompted. Attentive. Daily symptom tracker notes 2/5 for depression/anxiety. Emotion for today is motivated. Very brief and superficial check-in for today. Mental health win was decent sleep last evening. Hx of poor sleep cycle per pt. He mentioned that he left group early yesterday and was ruminating about what I missed. He did not elaborate on what caused him to leave early yesterday. He spend last night swimming and hanging out with his brother and friend. Limited progress noted. Benefited from group support, encouragement, and feedback. Will continue in IOP to maintain safety, increase healthy coping, and improve functioning. Narrative Note: []
--- NOTE | 2021-11-05 10:15 | BH.SGPN.GN ---
Behaviors/Verbalizations/Mental Status: [] Client alert and oriented, casually dressed and groomed. Eye contact good. Motor activity appropriate. Speech within normal limits. Affect congruent, mood euthymic. Thoughts linear, logical, no signs of hallucinations or delusions. Client Response/Progress/Benefit: [] Client responded well to session AEB sharing and listening attentively to others. Group provided examples of benefits of having social support, including: validation, increased confidence, and better mental health. Client also participated in group discussion regarding the barriers to accessing support including personal example of thinking of self as unworthy of receiving support. Client participated in experiential activity illustrating the impact communication, boundaries, and patience play in creating healthy support systems. Client appeared to benefit from increased knowledge of the benefits of social support and greater self-awareness. Will continue IOP tx to utilize healthy coping, reduce negative self-talk, and improve overall functioning. Narrative Note: []
--- NOTE | 2021-11-05 12:00 | BH.MDN ---
Multi-Disciplinary Note - Note 45-min Individual Time Started:: 11:10 Date: 11/06/21 Purpose of session/treatment goals addressed:: Reviewed progress and current symptoms. Addressed treatment plan goals 1 and 2. Eye Contact:: Good Motor Activity:: Appropriate Appearance:: Casual Speech:: Appropriate Mood:: Anxious Affect:: Congruent Thoughts:: Linear, Logical, No evidence of hallucinations/delusions noted Staff Interventions:: psychoeducation on: - cognitive distortions, CBT techniques, mindfulness skills Client Response:: Pt left IOP early yesterday stating that he was ill. He stated today I left because I was off and needed to sleep, maybe it was anxiety. When asked to elaborate pt states that he was experiencing significant anxiety producing thoughts surrounding his 3 y/o nephew who was in the ER for stomach pain. Significant intrusive thoughts that his nephew's appendix would burst, that he was going to , or other distressing intrusive thoughts. These continued thoughts led to increased anxiety and irritability which ultimately resulted in seeking safety behaviors of returning to his room and sleeping to escape. After processing pt was able to see the similarities between yesterday and leaving his previous jobs when anxious. We looked at yesterday and attempted to find things that we could learn from the series of events. Able to identify cognitive distortions used, negative automatic thoughts, and how his thoughts impacted feelings and behaviors. We also practiced mindfulness skills. Risks/Concerns:: no risks or concerns noted. Progress Toward Goals/Plan:: No progress noted. Pt left IOP yesterday due to intrusive thoughts. Limited coping strategies to utilize during distress prior to entering IOP level of care. Intrusive thoughts cause emotional distress which leads to unhealthy coping skills of fleeing and sleeping to escape. He did not follow through with assignment to review cognitive distortions. Admits that its best to do everything in session. Medication compliant. Sporadic attendance in the last week. Plan is to continue in IOP to maintain safety, stabilize mood, and increase healthy skills. Time Stopped:: 12:00
--- NOTE | 2021-11-06 11:35 | BH.COMM ---
Communication Note - Communication with Client Communication Note: pt called this AM and cancelled
--- NOTE | 2021-11-11 10:15 | BH.COMM ---
Communication Note - Communication with Client Communication Note: Pt did not call or show for IOP today. Attempted to leave message however VM not set up.
--- NOTE | 2021-11-12 09:00 | BH.SGPN.GN ---
Behaviors/Verbalizations/Mental Status: []Pt alert and oriented, casually dressed and groomed. Eye contact good, motor activity appropriate. Mood anxious and depressed. Affect constricted. Speech within normal limits. Thoughts linear, logical, no signs of delusions or hallucinations. Reviewed pt's symptom tracker, no risk for SI plan or intent. Client Response/Progress/Benefit: []Pt responded well to session, receptive to gentle thought challenging and engaged. Pt reports feeling neutral this morning and shared he has been struggling the past few days with too much sleep and avoidance. Pt shared he did not come to IOP yesterday because he could not get up and this made pt feel like shit the rest of the day. Pt able to practice some self-compassion and progress noted in self-accountability. Pt's win today is getting to IOP after avoiding and trying to challenge distortions. Pt appeared to benefit from group support and encouragement. Pt will continue IOP tx to prevent decompensation, monitor medication changes, and increase ability to challenge distortions. Narrative Note: []
--- NOTE | 2021-11-13 09:00 | BH.SGPN.GN ---
Behaviors/Verbalizations/Mental Status: [] Eye contact is good. Motor activity is appropriate. Appearance is casual. Speech is Appropriate. Mood is anxious. Affect is congruent. Thoughts are linear and logical. No evidence of psychosis. Client Response/Progress/Benefit: [] Pt participated when prompted. Attentive. Emotion for today is ?positive?. He shared with the group a win from yesterday which was ?I went to [facility] and didn?t have anxiety?. Discussed how he has struggled with social anxiety in places where there are many people who he is unfamiliar with and how this has impacted him in the past. He reports that he implemented skills learned in IOP. His stressor remains obtaining and keeping a job which, he has not been able to do for several years due to his mental health. Progress noted per pt report. Benefited from group support, encouragement, and feedback. Will continue in IOP to maintain safety, increase healthy coping, and improve functioning. Narrative Note: []
--- NOTE | 2021-11-13 10:10 | BH.SGPN.GN ---
Behaviors/Verbalizations/Mental Status: []Pt alert and oriented, casually dressed and groomed. Eye contact good. Motor activity appropriate. Speech within normal limits. Affect flat, mood depressed and anxious. Thoughts linear, logical, no signs of hallucinations or delusions. Client Response/Progress/Benefit: []Pt was a passive?participant in group discussion, but took notes and was active in activity. Group worked together to identify benefits of healthy relationships which include; improves mental health, encouragement, motivation, accountability, validation, connection, someone to share experiences with, and personal growth. Group identified factors that lead to unhealthy relationships which included; co-dependence, gaslighting, not addressing issues, name-calling, and doing only what others want.?Pt nodding a lot during session and taking notes. Actively participated in group experiential activity and expressed ideas to group. Benefited from increased insight and awareness of benefits of healthy relationships and factors that contribute to unhealthy relationships. Will continue in IOP tx to prevent decompensation, improve daily functioning, and combat distortions.? Narrative Note: []
--- NOTE | 2021-11-13 16:15 | BH.MDN_ITS ---
Multi-Disciplinary Note - Note 45-min Individual Time Started:: 11:15 Date: 11/13/21 Purpose of session/treatment goals addressed:: Reviewed current symptoms and progress in IOP. Addressed treatment goals 1 and 2. Reviewed homework from previous session. Eye Contact:: Good Motor Activity:: Restless Appearance:: Casual Speech:: Appropriate Mood:: Anxious Affect:: Congruent Thoughts:: Linear, Logical, No evidence of hallucinations/delusions noted Staff Interventions:: thought challenging, rapport building, goal setting Client Response:: Pt states I'm doing better. Shared no overwhelming anxiety or depression since last week. States that support commented last night that they have noticed an improvement since starting IOP. According to pt they said I'm laughing more, more positive, and I'm avoiding negative situations. Believes that he is managing his emotions and thoughts more effectively since last week. He was able to identify 3 cognitive distortions that he uses the most which include labeling, catastrophizing, and jumping to conclusions. Insight on how these impact his mental health. Increased awareness of when he is having these distortions since starting program which may be improving mood. Adm its that he still wakes up most days feeling worthless and often ruminates excessively that he will never amount to anything and will never be financially stable due to mental health keeping him from consistent employment. Compares himself to others often. We practiced challenging cognitive distortions and reframing thoughts. Risks/Concerns:: no risks or concerns noted. Progress Toward Goals/Plan:: Progress noted per pt report. Reports decreased negative thoughts and reduction in duration, intensity, and frequency of depression and anxiety. No SI since last week. Medication compliant, however believes medication is making him more tired. Will see psych next week. Pt set unrealistic expectations on himself my next job has to be the one that I will have for 30 years and exhibits several cognitive distortions most notably shoulds/musts and absolute thinking. Self-esteem is based a great deal on having and keeping a job If I could keep a job I'd be good, however has lost several jobs in the past 5-10 years with longest being 6 months due to mental health. Continues to wake up most days feeling worthless. Plan is to continue in IOP to prevent decompensation, maintain safety, and increase healthy coping. Time Stopped:: 12:00
--- NOTE | 2021-11-18 16:02 | BH.COMM ---
Communication Note - Communication with Client Communication Note: Pt called this afternoon stating that he tested positive for COVID and will be out the rest of the week.
--- NOTE | 2021-11-27 11:15 | BH.COMM ---
Communication Note - Communication with Client Communication Note: Was scheduled to start IOP this AM after being out with COVID for a week. Pt did not call or show this AM. Left message.
== END 2021-11-20 23:59 ==
LOC: BHIOP 08:00
PROVIDERS: PCP Student in an Organized Health Care Education/Training Program; Referring Provider Psychiatry & Neurology Psychiatry; Visit Provider Psychiatry & Neurology Psychiatry
DX: F33.2 Major depressive disorder, recurrent severe without psychotic features (principal); F42.9 Obsessive-compulsive disorder, unspecified; R45.851 Suicidal ideations; F95.2 Tourette's disorder; Z79.899 Other long term (current) drug therapy
CPT/HCPCS: 90792; H2012; H2020; S9480; T1002; 90834

== ENCOUNTER 2021-11-21 07:42 | Outpatient (RCR) | payer MEDICAID, SELFPAY ==
[2021-11-21 00:44] VITALS: BP 137/92; PULSE 67
--- NOTE | 2021-11-28 10:10 | BH.SGPN.GN ---
Behaviors/Verbalizations/Mental Status: [] Client alert and oriented, casually dressed and groomed. Eye contact good. Motor activity appropriate. Speech within normal limits. Affect congruent, mood euthymic. Thoughts linear, logical, no signs of hallucinations or delusions. Client Response/Progress/Benefit: [] Client responded well to session, contributing to discussion and engaged during the activity. Attentive during discussion on the quote with indicating that hitting rock bottom was a motivator for change for him. Group identified the things that keep them stuck and prevent change that included: lack of supports, relying on other's opinions of us, and fear of failure. Client identified things he want's to get rid of and take control in his life are need for constant approval and shutting down. Client shared that if these things were gone, the environment around him would be better and have more positive outcomes. Client reported he started changes so far by talking things through with others. Benefited from increased awareness and understanding of emotions, benefits, and barriers related to change. Will continue IOP tx to continue to increase self-compassion, gain healthy coping skills, and improve daily functioning. Narrative Note: []
--- NOTE | 2021-11-28 10:21 | BH.MDN ---
Multi-Disciplinary Note - Note 60-min Individual Time Started:: 09:05 Date: 11/28/21 Purpose of session/treatment goals addressed:: Met with pt to review progress and current symptoms. Addressed treatment plan goals 1 and 2. Eye Contact:: Good Motor Activity:: Restless Appearance:: Casual Speech:: Pressured Mood:: Anxious Affect:: Congruent Thoughts:: Linear, Logical, No evidence of hallucinations/delusions noted Staff Interventions:: psychoeducation on: - radical acceptance, mindfulness skills Client Response:: Pt presents today after not attending IOP for over a week due to COVID. Continues to report fatigue which has impacted his motivation and mental health. My anxiety has been really high lately. Initially was unable to identify a trigger however when pressed identified his father's anger. Elaborated more on this to help therapist understand. He will ruminate on his father's anger, interactions with father, and his overall view of his father. This will lead to wishing father would change. These ruminations continue for several hours and led to me physically shaking with anxiety. This anxiety can also lead to significant distress and passive suicidal thoughts what is the point of living. Over the past week he has not been very consistent with keeping up with skills due in large point to being ill. Therapist introduced and provided psychoeducation on radical acceptance. Therapist provided some ways to reframe and retrain brains when presented with negative automatic thoughts. Encouraged identifying cog distortions, remind self that thoughts are not facts, created affirmations, and went over mindfulness, distraction, and calming skills to interrupt anxious thoughts. Pt responded well and admits that he has trouble accepting areas in his life that he has limited control over (father). Insight that he can only control how he reacts. Risks/Concerns:: reports that he has times when he had passive thoughts of or survival ambivalence over the past week. Denies active SI, plan, or intent. Progress Toward Goals/Plan:: Limited progress as he was out for a week with COVID. Missed scheduled appts with program psychiatrist and was not consistent with skills while ill. This along with conflict with father has increased anxiety and depression. Spent the session reviewing skills and introduced radical acceptance and how this can help with anxiety and feelings of lack of control. Pt had reported moderate stability prior to COVID and currently reports decompensation in the past week. Will continue in IOP to maintain safety, prevent further decompensation, and increase healthy coping. Time Stopped:: 10:00
--- NOTE | 2021-11-28 11:10 | BH.SGPN.GN ---
Behaviors/Verbalizations/Mental Status: []Pt alert and oriented, neatly dressed and groomed. Eye contact good. Motor activity appropriate. Speech within normal limits. Affect constricted, mood anxious. Thoughts linear, logical, no signs of hallucinations or delusions. Client Response/Progress/Benefit: []Pt was an active participant in group discussion. Attentive during psychoeducation on the Zones of Change which included the comfort zone, learning zone, and danger zone. Pt along with peers participated in interactive discussion regarding behaviors, thoughts, and feelings associated with each zone. Participated in group activity in which they developed a plan to take action on something they wished to change. Pt chose to take action on needing acceptance in which pt identified a SMART goal to ?thinking of two ways I could already be accepted by others and write them down.? Identified supports that pt needed as writing examples down and asking support for feedback when needed. Benefited from increased self-aware of zones of change and developing an action plan. Will continue IOP tx to prevent decompensation, reduce avoidance, and increase self-confidence. Narrative Note: []
--- NOTE | 2021-11-29 09:22 | BH.COMM ---
Communication Note - Communication with Client Communication Note: Pt did not show or call today. VM is full. 2nd time this week.
--- NOTE | 2021-12-02 09:23 | BH.COMM ---
Communication Note - Communication with Client Communication Note: Pt did not show or call of today. This is 3rd time in a week. Attempted to call to discuss attendance and desire to continue in the program however did not answer and VM is full.
--- NOTE | 2021-12-02 15:54 | BH.COMM_ITS ---
Communication Note - Communication with Client Communication Note: Pt left message this afternoon stating that he no longer wants to continue with the program due to issues waking up in the AM. He is currently linked with Dr. Lundberg at [facility] with appointment on 12/11/21/
--- NOTE | 2021-12-02 15:54 | BH.DS ---
Discharge Summary - Demographics Date of Admission:: 10/28/21 Discharge Date: 12/02/21 Presenting Problems at Admission:: Pt is a 31 year old single male referred by [facility] ER after crisis assessment on 10/21/21. Presented to the ER with suicidal thoughts, worsening depression, recent Bipolar dx, and worsening anxiety. Pt presented to the ER after calling police reporting that he couldn't keep himself safe. He was triggered due to rejection issues brought on by his outpatient therapist who referred him to a male therapist. He is vague regarding the reasons behind this. Increased SI with thoughts of methods (gun). Worsening mental health for the past 2 years with several triggers including conflict with father (whom he lives with) and amish trauma associated with a local [employer]. He reports a manic episode in which he slept very little, however recently has been depressed, low motivation, low energy, anhedonia, increased sleep, hopelessness, and worthlessness. Daily anxiety with racing thoughts, uncontrollable anxiety, and panic attacks. Denies HI or psychosis. Discharge Diagnoses:: Major depressive disorder, recurrent, severe without psychosis (F33.2). OCD. Tourette's syndrome Reason for Discharge:: Pt had not shown or called off for past two scheduled IOP days. He left a message this AM stating that due to his inability to wake up in the AM to attend the program he would like to be discharged. - Treatment Progress During Treatment & Response: Pt had sporadic progress during IOP. Struggled with consistently attending the program and out of 17 scheduled IOP days only attended 8. Main obstacle was getting up in the early AM. While present he appeared attentive however had limited engagement in interactive group discussions. According to treatment plan review on 11/27/21 Pt completed DSM-5 outcome questionnaire earlier this week (missed last week due to COVID) which showed a 66% overall decrease in symptoms since admission. Pt had a 62% decrease in the depression domain, 50% decrease in the anger domain, a 50% decrease in the anxiety domain, and denies any suicidal thoughts in the past 2 weeks. Despite this progress he notes regression since last week due to not attending IOP and not consistently utilizing skills due to being ill (COVID). Identified intrusive thoughts, panic attack, and passive thoughts of . Issues Still to be Addressed:: Depression, fleeting SI, intrusive thoughts, anxiety, panic, and poor emotion regulation. Due to pt's mental health symptoms he has been unable to maintain consistent employment. Discharge Recommendations/Instructions:: Pt abruptly discharged from the program therefore an aftercare plan was not created. He does have an appointment with his psychiatrist Dr. Lundberg on 12/11/21. Discharge Handout: Complete Discharge Handout with client on aftercare options and continuity of care.
--- NOTE | 2021-12-04 11:18 | BH.MTP_ITS ---
Treatment Plan Review Date of Admission:: 10/28/21 Date of Treatment Plan Review:: 11/27/21 Admitting Diagnoses:: Major depressive disorder, recurrent, severe without psychosis (F33.2). OCD. Tourette's syndrome Current Diagnoses:: Major depressive disorder, recurrent, severe without psychosis (F33.2). OCD. Tourette's syndrome Patient's Response to Treatment:: Pt's attendance in IOP has been inconsistent mainly due to struggles with wake up in the AM and recent COVID diagnosis. Since starting on 10/28/21 pt has attended 8 out of 17 scheduled IOP appointments. Several no call/ no shows and cancellations. Limited engagement in groups ramon begum has appeared attentive AEB by note-taking. Inconsistency has also resulted in missed appointment with program psychiatrist to discuss medication effectiveness and side effects. Despite his inconsistent attendance he has shown progress on his outcome measurements. Status of Current Problems and Symptoms: Pt completed DSM-5 outcome questionnaire earlier this week (missed last week due to COVID) which showed a 66% overall decrease in symptoms since admission. Pt had a 62% decrease in the depression domain, 50% decrease in the anger domain, a 50% decrease in the anxiety domain, and denies any suicidal thoughts in the past 2 weeks. Despite this progress he notes regression since last week due to not attending IOP and not consistently utilizing skills due to being ill (COVID). Identified intrusive thoughts, panic attack, and passive thoughts of . Problem #1 Problem Name:: Depression Status of Goals:: obj 1- in progress, pt has identified arguments with his father, lack of job, and limited finances as primary triggers to SI and feeling or worthlessness. He has worked on reframing/challenging negative thoughts associated with these triggers. Also identified cog. distortion which make thoughts/feelings worse. Due to inconsistent attendance he has missed several important psychoeducation group on skills and awareness of triggers. Obj2- in progress- again due to poor attendance has missed several important psychoeducation groups on skills and crisis plan development. Team Recommendations:: Encourage consistent attendance. Problem #2 Problem Name:: Anxiety Status of Goals:: Obj 1- In progress, Pt can identify 3 cognitive distortions that he often uses and how they impact his anxiety, however struggles to consistently challenge and reframe these distortion w/o assistance from therapist. Obj 2- Pt can identify 3 coping skills to utilize in anxiety- producing situations however again falls to implement these independently. Team Recommendations:: Continue with plan. Encourage consistent attendance.
== END 2021-12-03 07:02 | disposition home or self-care (01) ==
LOC: BHIOP 07:42
PROVIDERS: PCP Student in an Organized Health Care Education/Training Program; Referring Provider Psychiatry & Neurology Psychiatry; Visit Provider Psychiatry & Neurology Psychiatry
DX: F33.2 Major depressive disorder, recurrent severe without psychotic features (principal); F42.9 Obsessive-compulsive disorder, unspecified; F95.2 Tourette's disorder
CPT/HCPCS: H2012; S9480; 90837

== ENCOUNTER 2022-01-14 22:08 | Emergency (ER) | payer MEDICAID, SELFPAY ==
[2022-01-14 22:09] VITALS: BP 150/92; PULSE 87; RESP 16; TEMP 36.4; O2SAT 98; BMI 26.3
--- NOTE | 2022-01-14 23:06 | EKG12_ITS ---
Test Reason : SHORTNESS OF BREATH Blood Pressure : / mmHG Vent. Rate : 065 BPM Atrial Rate : 065 BPM P-R Int : 166 ms QRS Dur : 086 ms QT Int : 378 ms P-R-T Axes : 061 059 027 degrees QTc Int : 393 ms Normal sinus rhythm Normal ECG Confirmed by KEMI ALVES, MACI ([id number]), editor house organ BRISA GRIDER ([id number]) on 01/16/2022 10:42:33 AM Referred By: SYLVIA Confirmed By:MACI MCMULLEN MD
--- NOTE | 2022-01-14 23:09 | EDS_ITS ---
HPI History of Present Illness Chief Complaint: Shortness of Breath Informant: patient Narrative Narrative: Patient had an episode where he up some palpitations dyspnea and a bit of anxiety. He does have a history of anxiety. He is on meds for this. He states he thinks it started due to drinking too much caffeine. He had 4 energy drinks 2 cups of caffeine and some diet pills today. He was not trying to hurt himself. He states his grandmother is dying and he wants to make sure he is awake in case anything happens if somebody calls him. He realizes this was not a good idea. Again, he is not at all suicidal or homicidal. He feels better now. He has not been having fevers chills or coughing. [facility] Medical History Major depressive disorder, recurrent severe without psychotic features Murmur OCD (obsessive compulsive disorder) Physical exam, pre-employment PTSD (post-traumatic stress disorder) Tourettes syndrome Home Medications clonazepam 0.5 mg tablet (Klonopin) 0.5 mg PO DAILY PRN Anxiety 07/13/21 [History Last Taken Unknown] fluphenazine HCl 5 mg tablet 5 mg PO DAILY 07/13/21 [History Last Taken Unknown] fluoxetine 40 mg capsule (Prozac) 40 mg PO DAILY 10/30/21 [History Last Taken Unknown] Allergy/AdvReac Type Severity Reaction Status Date / Time amoxicillin Allergy Hives Verified 01/14/22 22:09 Surgical History History of hernia repair History of tonsillectomy and adenoidectomy Social History Smoking Status: Never smoker ROS ROS ED Constitutional Constitutional ED: Denies chills, fever(s) or sweats Eyes Eyes: Denies change in vision ENT ENT ED: Denies rhinorrhea or sore throat Cardiovascular Cardiovascular: Reports palpitations and racing heartbeat; Denies chest pain Respiratory/Chest Respiratory/Chest: Reports dyspnea; Denies cough or sputum Gastrointestinal Gastrointestinal: Reports other Details: Patient has had some softer stools since drinking the caffeine but no pain. No nausea vomiting ; Denies abdominal pain, nausea or vomiting Genitourinary Genitourinary ED: Denies dysuria or hematuria Musculoskeletal Musculoskeletal: Denies arthralgias or myalgias Integumentary Denies rash Neurologic Neurologic: Denies headache(s), paresthesias or weakness Psychiatric Psychiatric: Reports anxiety; Denies suicidal ideation or suicidal thoughts Endocrine Endocrinology: Denies polydipsia or polyuria Hematologic/Lymphatic Hematologic/Lymphatic: Denies easy bleeding or easy bruising Allergic/Immunologic Allergic/Immunologic ED: Denies urticaria EXAM Physical Exam Const Vital Signs: 01/14/22 22:09 01/14/22 23:22 Temperature 97.6 F L Temperature Source Temporal Pulse Rate 87 Respiratory Rate 16 Respiratory Effort Non-Labored Respiratory Depth Normal Respiratory Pattern Normal Blood Pressure 150/92 H Blood Pressure Mean 111 Pulse Ox 98 Oxygen Delivery Method Room Air Room Air Positive well nourished and well developed General Appearance ED: well developed HEENT Reports moist mucous membranes Eyes General Eye ED: Negative for pale conjunctiva or scleral icterus Neck no lymphadenopathy and no JVD Resp normal respiratory effort and clear to auscultation bilaterally Auscultation: Negative for rales, rhonchi or wheezes Cardio regular rate, regular rhythm and no murmurs Rate: Negative for bradycardia or tachycardic GI non-tender, non-distended and no masses Auscultation: normoactive bowel sounds Palpation: soft; Negative for tender Back/Spine no CVA tenderness Extremity normal to inspection Neuro oriented x3 Sensorium / Orientation: Negative for orientation impaired, confused, lethargic or stuporous Speech: speech normal Gait (Neuro): normal gait Psych mental status grossly normal Attitude: No agitated Mood & Affect: Negative for depressed, anxious or tearful Thought Process: normal thought process Skin no wounds MDM MDM MDM Narrative Medical decision making narrative: Patient's heart rate is currently about 65. He feels calm. He really feels relaxed. We discussed stress, sleep, management of caffeine. We will get him home at this time. EKG Initial EKG: Comments: EKG done for transient palpitations read by me shows a normal sinus rhythm with overall rate of 65. No ventricular ectopy. No preexcitation. No acute ST elevation or depression. MI interval, QRS duration and QTc are all normal. Discharge Plan Triage Chief Complaint: Shortness of Breath ED Provider: Lucio De Paz Dx/Rx/DC Orders Clinical Impression: Anxiety, Caffeine abuse Instructions: ED Anxiety Reaction Prescriptions: No Action fluphenazine HCl 5 mg tablet 5 mg PO DAILY clonazepam [Klonopin] 0.5 mg tablet 0.5 mg PO DAILY PRN (Reason: Anxiety) fluoxetine [Prozac] 40 mg Capsule 40 mg PO DAILY Primary Care Provider: David Irving Referrals: David Irving DO [Primary Care Provider] - Disposition Disposition: Home, Self Care
[2022-01-14 23:22] VITALS: O2SAT 98
[2022-01-15 00:04] VITALS: BP 139/92; PULSE 64; RESP 15; O2SAT 97
[2022-01-15 00:08] VITALS: BP 139/92; PULSE 74; RESP 14; O2SAT 97
== END 2022-01-15 00:18 | disposition home or self-care (01) ==
PROVIDERS: Emergency Provider Emergency Medicine; PCP Student in an Organized Health Care Education/Training Program; Visit Provider Emergency Medicine
DX: F41.9 Anxiety disorder, unspecified (principal); F15.10 Other stimulant abuse, uncomplicated; F33.2 Major depressive disorder, recurrent severe without psychotic features; F42.9 Obsessive-compulsive disorder, unspecified; F95.2 Tourette's disorder
CPT/HCPCS: 93005; 99282

== ENCOUNTER 2022-07-16 17:15 | Emergency (ER) | payer MEDICAID, SELFPAY ==
[2022-07-16 17:17] VITALS: BP 141/89; PULSE 109; RESP 16; TEMP 36.7; O2SAT 100; BMI 27.3
--- NOTE | 2022-07-16 17:49 | EX.ED.VIS.PS ---
HPI HPI - Psych History of Present Illness Chief Complaint: Suicidal Informant: patient and parent Narrative Narrative: Patient presents with slowly worsening suicidal thoughts. This patient has a long history of anxiety ADHD and OCD since childhood. He has been on many different medicines. He has not been able to see a counselor for almost a year. He used to see a counselor but they left the practice. He then got a new counselor who left after about 3 weeks. He is now on a waiting list to see another counselor but is told that he is 60 people deep in the waiting list. He is taking his medicines. But he just keeps getting more more thoughts of self injury. He feels he is to the point he needs to come in the hospital. He does not have a specific plan. But despite trying he is losing access to resources that were helping him. Mom supports this. He has also been getting poor sleep recently. He has been stress eating and has gained 15 or more pounds. Anxiety is up. [facility] Medical History Major depressive disorder, recurrent severe without psychotic features Murmur OCD (obsessive compulsive disorder) Physical exam, pre-employment PTSD (post-traumatic stress disorder) Tourettes syndrome Home Medications clonazepam 0.5 mg tablet (Klonopin) 0.5 mg PO DAILY PRN Anxiety 07/13/21 [History Last Taken Unknown] fluphenazine HCl 5 mg tablet 5 mg PO DAILY 07/13/21 [History Last Taken Unknown] fluoxetine 40 mg capsule (Prozac) 40 mg PO DAILY 10/30/21 [History Last Taken Unknown] Allergy/AdvReac Type Severity Reaction Status Date / Time amoxicillin Allergy Hives Verified 07/16/22 17:20 Surgical History History of hernia repair History of tonsillectomy and adenoidectomy Social History Smoking Status: Never smoker ROS ROS ED Constitutional Constitutional ED: Denies chills or fever(s) Eyes Eyes: Denies change in vision ENT ENT ED: Denies rhinorrhea Cardiovascular Cardiovascular: Denies chest pain Respiratory/Chest Respiratory/Chest: Denies cough or dyspnea Gastrointestinal Gastrointestinal: Denies nausea or vomiting Musculoskeletal Musculoskeletal: Denies myalgias Integumentary Denies rash Neurologic Neurologic: Denies headache(s) or paresthesias Psychiatric Psychiatric: Reports anxiety, depression and suicidal thoughts Endocrine Endocrinology: Denies polyuria Allergic/Immunologic Allergic/Immunologic ED: Denies urticaria EXAM Physical Exam Narrative Exam Narrative: CONSTITUTIONAL: Patient is nontoxic in appearance. The patient looks comfortable. Work of breathing looks normal. He is very pleasant. He carries on normal conversation. His seems like his mother is also very supportive. HEENT: No notable trauma. Mucous membranes moist. No sinus tenderness. EYES: No conjunctival injection. No proptosis. Not tearful NECK:No JVD. No stridor. CARDIOVASCULAR: Regular rate. Regular rhythm. No notable murmur. No JVD. RESPIRATORY: No respiratory distress. Breathing is unlabored. No wheezes. GASTROINTESTINAL: Not distended. Bowel sounds are normal. No tenderness. No guarding. No rebound. GENITOURINARY: No tenderness over the bladder. No CVA tenderness. MUSCULOSKELETAL: Atraumatic. No peripheral edema. NEUROLOGICAL: Patient is alert and appropriate. No focal deficit noted. SKIN: No noted rashes. No diaphoresis. PSYCHIATRIC: Patient is calm. Mood is appropriate. He is helpful. He does make good eye contact. But he admits to suicidal thoughts and feels like he is just getting worse. Const Vital Signs: 07/16/22 17:17 Temperature 98.1 F Temperature Source Temporal Pulse Rate 109 H Respiratory Rate 16 Blood Pressure 141/89 H Blood Pressure Mean 106 Pulse Ox 100 Oxygen Delivery Method Room Air MDM MDM MDM Narrative Medical decision making narrative: Patient CBC shows no acute process. Electrolytes show minimally decreased potassium but this will self-correct with diet and he still is eating and drinking well. Alcohol level is negative. Toxicology screen is pending. COVID is negative. Our social services technician talk with him and his mother. She is okay with him going home. Patient does not have a plan. He has had these thoughts for a while. His biggest issue is that he cannot get into counseling, therapy or help. We can get him into intensive outpatient. He was in there before and did quite well. But he states he was doing well and did not actually finish the program. Last time he also moved his bedroom down to the same floor as everyone else in the family and that helped him. He plans to do that. Both the patient and his mother are okay with this plan. We have a plan for follow-up. He has a safety plan. I think this is quite reasonable. Lab Data Attestation: I reviewed the patient's lab results. Labs: Laboratory Results - last 24 hr 07/16/22 07/16/22 07/16/22 17:40 17:40 17:40 WBC 10.3 RBC 5.34 Hgb 15.7 Hct 45.1 MCV 84.5 MCH 29.4 MCHC 34.8 RDW Std Deviation 36.6 RDW Coeff of [place] 12.2 Plt Count 243 MPV 10.9 Immature Gran % (Auto) 0.500 Neut % (Auto) 72.1 H Lymph % (Auto) 21.0 [place] % (Auto) 4.6 Eos % (Auto) 1.1 Baso % (Auto) 0.7 Absolute Neuts (auto) 7.4 Absolute Lymphs (auto) 2.15 Nucleated RBC % 0 Sodium 138 Potassium 3.1 L Chloride 106 Carbon Dioxide 28.0 Anion Gap 4 L BUN 17 Creatinine 1.10 Estim Creat Clear Calc 114.17 Est GFR (MDRD) Af Amer 101 Est GFR (MDRD) Non-Af 83 BUN/Creatinine Ratio 15.5 Glucose 49 L Calcium 9.4 Ethyl Alcohol < 3.0 Discharge Plan Triage Chief Complaint: Suicidal ED Provider: Lucio De Paz Dx/Rx/DC Orders Clinical Impression: Suicidal thoughts, History of depression Instructions: ED Depression Prescriptions: No Action fluphenazine HCl 5 mg tablet 5 mg PO DAILY clonazepam [Klonopin] 0.5 mg tablet 0.5 mg PO DAILY PRN (Reason: Anxiety) fluoxetine [Prozac] 40 mg Capsule 40 mg PO DAILY Primary Care Provider: Daivd Irving Referrals: David Irving, [Primary Care Provider] - As Needed Activity Restrictions/Additional Instructions: Follow-up with intensive outpatient psychiatry as planned. Please return with worsening thoughts or concerns. Disposition Disposition: Home, Self Care
[2022-07-16 17:56] LABS: Absolute Lymphocyte Count 2.15 X10^3/uL (0.83-4.51); Absolute Neutrophil Count 7.4 X10^3/uL (2.0-7.7); Basophil# 0.07 X10^3/uL; Basophil% 0.7 % (0-1); Eosinophil# 0.11 X10^3/uL; Eosinophils% 1.1 % (0-5); Hematocrit 45.1 % (40-54); Hemoglobin 15.7 g/dL (13.0-16.5); Lymphocyte # 2.15 X10^3/ul (0.83-4.51); Mean Corp Hgb Conc 34.8 g/dL (32-36); Mean Corpuscular Hgb 29.4 pg (27.0-32.0); Mean Corpuscular Volume 84.5 fL (80-94); Mean Platelet Vol. 10.9 fl (6.2-12.0); Monocyte# 0.47 X10^3/uL; Monocyte% 4.6 % (0-10); NRBC Flagged by Analyzer 0 % (0-5); Neutrophil # 7.41 X10^3/uL (2.7-7.7); Neutrophil % 72.1 % (47-70); Platelet Count 243 K/mm3 (150-450); RBC Distribution Width CV 12.2 % (11.6-14.6); RBC Distribution Width SD 36.6 fl (35.1-43.9); Red Blood Count 5.34 M/mm3 (4.6-6.2); White Blood Count 10.3 K/mm3 (4.4-11.0)
[2022-07-16 18:09] LABS: Anion Gap 4 (5-15); BUN 17 mg/dL (7-18); BUN/Creat Ratio 15.5 RATIO (10-20); Calcium,Total 9.4 mg/dL (8.5-10.1); Chloride 106 mmol/L (98-107); EST Glomerular Filtration Rate 83 mL/min (>60); Est Glom Filt Rate - Afr Amer 101 mL/min (>60); Estimated Creatinine Clearance 114.17 ml/min; Glucose 49 mg/dL (74-106); Potassium 3.1 mmol/L (3.5-5.1); Sodium Level 138 mmol/L (136-145)
[2022-07-16 18:17] VITALS: RESP 18
[2022-07-16 18:24] LABS: Alcohol, Blood (Medical)-Serum < 3.0 mg/dL
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
--- NOTE | 2022-07-16 21:27 | CM.ED ---
Social Work Note Referral sent to Behavioral Health for IOP/PHP program. Misti Cortés CLINICAL NURSING ASSISTANT, JENNIFER
--- NOTE | 2022-07-18 16:37 | CM.ED ---
Social Work Note Safety Plan follow up SW contacted patient and reintroduced herself and role. Patient recalls SW and agreeable to talk. Patient reports he is doing better and already met with Jose Angel for IOP assessment. Patient reports he will engage in IOP 3 days a week for 6 weeks starting next week and feels very hopeful. Patient also reports he will be contacting [facility] for psychiatric services and discontinue care at [facility] as he isn't happy with the care provided by his current psychiatrist. Patient explained he also plans to start services with [facility] as his mother recommended counseling services at that agency. Patient reports no current safety concerns or other needs. SW encouraged patient to contact [facility] or return to ED if SI returns or worsens; patient reports understanding. Misti Cortés MSW, JENNIFER
== END 2022-07-16 18:47 | disposition home or self-care (01) ==
PROVIDERS: Emergency Provider Emergency Medicine; PCP Student in an Organized Health Care Education/Training Program; Visit Provider Emergency Medicine
DX: F33.2 Major depressive disorder, recurrent severe without psychotic features (principal); R45.851 Suicidal ideations; Z79.899 Other long term (current) drug therapy; F42.9 Obsessive-compulsive disorder, unspecified; F41.9 Anxiety disorder, unspecified
CPT/HCPCS: 80048; 82077; 85025; 87811; 99283

== ENCOUNTER 2022-07-22 09:16 | Outpatient (RCR) | payer MEDICAID, SELFPAY ==
--- NOTE | 2022-07-22 09:05 | BH.SGPN.GN ---
Behaviors/Verbalizations/Mental Status: []Pt alert and oriented, neatly dressed and groomed. Eye contact good. Motor activity appropriate. Speech within normal limits. Affect congruent, mood depressed. Thoughts linear, logical, no signs of hallucinations or delusions. Reviewed pt?s symptom tracker, no risk for suicidal ideation, plan, or intent as of 07/22/22 Client Response/Progress/Benefit: []Pt responded well to session, attentive and engaged. Pt reports feeling optimistic this morning. Pt shared he wants to reduce his depressive symptoms while in IOP and focus on being more consistent with using healthy coping skills. Pt stated he was in IOP in the past but I didn't give in 100%. Pt reports since he was here last his anxiety has significantly decreased which gives pt hope, but pt is now struggling with managing depression and misuse of alcohol. Pt appeared to benefit from connecting with peers and being vulnerable. Pt will continue IOP tx to prevent decompensation, increase motivation, and reduce isolation. Narrative Note: []
--- NOTE | 2022-07-22 09:30 | BH.COMM ---
Communication Note - Communication with Client Communication Note: Met with pt today to complete initial paperwork. No significant changes since pre-admission screening. Completed [place] Suicide Screening. Denies active SI since ER visit on 07/16/22. Consulted with Dr. Montanez with plan to admit to IOP with dx of F33.2
--- NOTE | 2022-07-22 10:10 | BH.SGPN.GN ---
Behaviors/Verbalizations/Mental Status: []Pt alert and oriented, casually dressed and groomed. Eye contact good. Motor activity appropriate. Speech within normal limits. Affect constricted, mood dysthymic. Thoughts linear, logical, no signs of hallucinations or delusions. Client Response/Progress/Benefit: []Pt receptive to session AEB contributing to discussion, as well listening attentively to others, and taking notes. Worked with group to brainstorm the positive and negative aspects of stress on physical and mental health. Group did well to identify the benefits of stress as well as the impact of distress on performance, relationships, and mental health. Pt identified their personal top stressors as: not having a job, financial problems, and living situation. Pt seemed to benefit from increased awareness of current stressors and impact stress has on mental health. Recommended to continue IOP tx to decrease depression, increase confidence, and prevent decompensation.
--- NOTE | 2022-07-22 11:10 | BH.SGPN.GN ---
Behaviors/Verbalizations/Mental Status: [] Eye contact is good. Motor activity is appropriate. Appearance is casual. Speech is Appropriate. Mood is euthymic. Affect is full. Thoughts are linear and logical. No evidence of psychosis. Client Response/Progress/Benefit: [] Pt was attentive during group discussions however did not participate. Active and engaged during experiential activity. Attentive during psychoeducation on the 4 A's of stress management (Avoid, Alter, Adapt, Accept). Attentive and in agreement with with peers AEB by head-nodding as they discussed the connections between the experiential activity and the group topic of stress. Attentive as peers discussed the times during the activity in which they utilized in the moment stress management skills which included; utilizing others for support/help, identifying struggles and adapting, making necessary changes when needed, the importance of patience, taking a step back, breathing, reframing thoughts, and not ruminating or letting setbacks lead to giving up. Benefited from increased education on stress management strategies and practicing in the moment stress management skills. Will continue in IOP to prevent decompensation, increase healthy coping skills, and improve functioning to return to work,. Narrative Note: []
--- NOTE | 2022-07-23 09:00 | BH.SGPN.GN ---
Behaviors/Verbalizations/Mental Status: []Pt alert and oriented, casually dressed and groomed. Eye contact fair. Motor activity appropriate. Speech within normal limits. Affect constricted, mood depresed. Thoughts linear, logical, no signs of hallucinations or delusions. Reviewed pt?s symptom tracker, no risk for suicidal ideation, plan, or intent. Client Response/Progress/Benefit: []Pt responded well to session, attentive and engaged. Pt reported mental health positive as spending time with his niece over the weekend whom is only 4 weeks old. Pt reported additional positive as helping with coordination of getting his shed built over the weekend. Stated stressor is feeling down and tired this morning with no apparent cause/trigger. Pt reported today he could door dash or hang out with his brother after IOP to help improve his mood. Pt appeared to benefit from support from peers. Pt will continue IOP tx to increase healthy coping skills, challenge distortions, and prevent decompensation.
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
--- NOTE | 2022-07-23 11:10 | BH.SGPN.GN ---
Behaviors/Verbalizations/Mental Status: []Pt alert and oriented, neatly dressed and groomed. Eye contact good. Motor activity appropriate. Speech within normal limits. Affect congruent, mood depressed. Thoughts linear, logical, no signs of hallucinations or delusions. Client Response/Progress/Benefit: []Pt responded well to session AEB completing the resilience worksheet provided. Pt participated in the discussion and worked cooperatively with group to identify strategies to enhance each of the components discussed. Pt reports belief they already use resilience trait of??taking care of himself? as pt often engages in hobbies. Pt stated they would like to continue to develop resilience trait of ?self-awareness? so pt can catch his own warning signs and triggers before a crisis. Pt seemed to benefit from discussing strategies for improving personal resilience and identifying resilience traits pt already possesses. Will continue IOP tx to prevent decompensation, increase motivation, and improve daily functioning. ??? Narrative Note: []
[2022-07-23 11:11] VITALS: BP 153/96; PULSE 80
--- NOTE | 2022-07-23 12:15 | BH.PSY.EVA_ITS ---
Psychiatric Evaluation Initial Evaluation Initial Evaluation: History of Present Illness: [] The patient is a 32-year-old single male with a history of depression, OCD and Tourette's syndrome who is known to the [facility] behavioral health IOP program as he started the program in October 2021 but never finished the program. He currently lives with his parents, his twin brother and his brother's girlfriend. The patient states that he has become depressed and recent weeks about 1 month. He lost 2 jobs and has been unable to work due to his depressive symptoms. He states that he has been increased his alcohol use in the last month to about a 12 pack once a week but he has not had any alcohol in the past week. He has made statements to his family such as I should just shoot myself. The patient says he would never do this because his niece and nephew and his church believes are protective factors. The patient's family has locked up all weapons. The patient states that he feels a little better since starting the IOP program and this time he says he is going to take it seriously. His symptoms include isolation, low motivation, hopelessness, worthlessness, sad numbness, irritability and occasional anger outburst. He endorses anhedonia, increased sleep to up to 14 h ours a day at times. He has low energy level and decreased concentration. He feels guilt and has had passive thoughts of daily for 1 month. He states he has also had suicidal ideation for 1 month but he has not had any suicidal ideation since 1 week ago on July 16, 2022 and he denies any plan for suicide. He denies also homicidal ideation, hallucinations, delusions or symptoms of yoel ever. He drinks 3 energy drinks a day but denies any panic attacks and says his anxiety is actually decreased. He is doing some negative rumination about himself. His OCD is better and he only has some obsessions with order now and it does not take very much time in his day. He has some trauma from his church trauma in the back room but denies now any PTSD symptoms from this. Denies also eating disorder, seizure or head trauma. Current Psychiatric Medications: [] Fluphenazine 5 mg p.o. daily (for Tourette's); Klonopin 0.5 mg as needed for panic attack (has not taken any in 6 months); Cymbalta 60 mg p.o. daily (on this for 3 months): The patient states this and bolted it makes him more irritable and depressed and he wants to come off it because it makes me worse. Past Psychiatric History: [] No psych admits ever. No suicide attempts ever. He is getting a news counselor and a new psychiatrist now as he feels his former psychiatrist does not listen to him. His past meds are extensive and include valproic acid, clomipramine and many other meds. He was diagnosed with Tourette's syndrome at age 7 and OCD as a child and needs to have handwashing and cleanliness obsessions and rituals but they have pretty much resolved. Substance Use History: [] He used to drink 1-2 beers every other week. In the past month he increased his alcohol use to about a 12 pack once a week only but he has not had any alcohol in the past week. Non-smoker. No vaping. No marijuana and no other drugs. No rehab ever. Allergies: [] Amoxicillin Medications: [] Psych meds only as dictated above. Past Medical History: [] Shoulder tendinitis from a shoulder tic and a injury playing sports. Borderline hypertension and heart murmur. 2 hernia surgeries in the past. Tonsillectomy in the past. Identifies as heterosexual and was sexually active in the past with no problems. Family Psychiatric History: [] Mother, sister and maternal grandmother have depression and anxiety. 2 cousins are drug addicts. No completed suicides in the family. Personal/Social History: [] He was born and raised in [place] and describes his childhood as good. His parents are and he has 1 fraternal twin brother and a sister 3 years older than him and he is very close to both of his siblings. He denies verbal, physical or sexual abuse ever. School was not good for him and was very chaotic and he was bullied a lot all through school for Tourette's syndrome. High school was better as he was a stakes player in high school. He graduated high school but did not go to college. 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 He has recently lost 2 jobs and been unable to work due to his symptoms. He had 1 serious girlfriend in the past which lasted 3 years but this ended in 2019 and he has no girlfriend now. Brother's girlfriend moving into the house has added to his stress. Legal History: [] Has [place]it[place] driver's license. No arrests. No DUIs. Review of Systems: [] Patient has rotator cuff issues and tendinitis in his shoulder which cause pain. Review of systems otherwise negative except as noted in present illness. Vital Signs: [] Vital signs and exam are reviewed in the medical records and in the nurses notes and updated and the patient is deemed medically able to participate in the IOP program. Mental Status Examination: [] The patient is a tall, male who appears fit for his stated age and is casually dressed and groomed with good hygiene. He is ambulatory with a normal gait and has no psychomotor agitation or retardation. Eye contact is good and speech is normal rate and rhythm and fluent with no pressure. He is cooperative and pleasant during the interview. Mood is depressed. Affect is constricted mildly. Thought process is goal- directed and organized. Thought content: There is evidence of passive thoughts of and there is evidence of recent suicidal ideation which resolved 1 week ago. There is evidence of negative rumination. There is no evidence of plan for suicide, active suicidal ideation, homicidal ideation, current suicidal ideation, hallucinations or delusions. Reality testing is intact. Intelligence is average. Judgment is intact. Insight is fair. Diagnoses: [] 1. Major depressive disorder, recurrent, severe without psychosis 2. OCD 3. Tourette's syndrome 4. Work and primary support issues Plan: [] The patient will start the IOP program at [facility] as the structure, support, education and group therapy will hopefully prevent worsening of the patient's symptoms which might require hospitalization. He felt safe during the interview and if it anytime he does not feel safe he will let us know or go to the emergency room. The risks, options, possible complications and side effects of the medications were discussed with the patient and he understands and accepts these. The patient wishes to wean and discontinue his Cymbalta and he agrees to decrease to 30 mg p.o. daily for 1 to 2 weeks and then stop the Cymbalta. In addition prescription is sent in for Auvelity 45/105mg to take 1 p.o. twice daily. I will see the patient in follow- up in 2 weeks and he will continue follow-up with his outpatient providers. He agrees to eliminate energy drinks and caffeine at least for the first few days he takes the Auvelity.
--- NOTE | 2022-07-23 12:30 | BH.DR.ITP ---
Initial Treatment Plan Patient Information Visit Information: ADMISSION DATE: EXPECTED LOS: 4-6 weeks Problems/Symptoms Problem #1:: Depression Symptom:: Sadness, irritability, low motivation, anhedonia, hypersomnia, low energy, decreased concentration, guilt, passive thoughts of , suicidal ideation (passive) Problem #2:: Anxiety Symptom:: Ruminations, worry
--- NOTE | 2022-07-25 09:00 | BH.COMM ---
Communication Note - Communication with Client Communication Note: cancelled for IOP today
--- NOTE | 2022-07-28 09:05 | BH.SGPN.GN ---
Behaviors/Verbalizations/Mental Status: [] Eye contact is good. Motor activity is appropriate. Appearance is casual. Speech is Appropriate. Mood is depressed. Affect is flat. Thoughts are linear and logical. No evidence of psychosis Client Response/Progress/Benefit: [] Pt participated when prompted during group discussion. Attentive. Emotion for today is ?happy?. Reports that he is grateful to be in treatment and ?getting help?. He discussed stressors that have been impacting his mental wellness. Brief check-in. Benefited from group support encouragement. Will continue in IOP to maintain safety, increase healthy coping, and prevent decompensation. Narrative Note: []
--- NOTE | 2022-07-28 10:15 | BH.SGPN.GN ---
Behaviors/Verbalizations/Mental Status: []Pt alert and oriented, casually dressed and groomed. Eye contact good. Motor activity appropriate. Speech within normal limits. Affect congruent, mood depressed. Thoughts linear, logical, no signs of hallucinations or delusions. Client Response/Progress/Benefit: []?Pt was an active participant in group discussions. Attentive during psychoeducation. Contributed during interactive discussions in which peers attempted to define crisis. Pt identified several examples of potential crisis. Group also worked together to identify unhealthy responses to crisis which included; isolation, self-harm, overuse of distraction, avoidance, and lashing out. Pt identified personal warning signs as increased negative thinking, sleeping more than usual, and loss of motivation. Pt shared his warning signs for depression look much different than yoel. Benefited from increased understanding of crisis and awareness of personal responses to crisis. Pt will continue IOP tx to prevent decompensation, improve daily functioning, and increase healthy coping skills. Narrative Note: []
--- NOTE | 2022-07-28 11:15 | BH.SGPN.GN ---
Behaviors/Verbalizations/Mental Status: []Client alert and oriented, casually dressed and groomed. Eye contact fair. Motor activity appropriate. Speech within normal limits. Affect congruent. Mood euthymic and anxious. Thoughts linear, logical, no signs of hallucinations or delusions. Client Response/Progress/Benefit: []Client engaged throughout group session AEB providing contributions to discussion and working within the small groups. Client identified their personal warning signs for crisis and gained further awareness of earliest warning signs. Client created a crisis action plan to help client better manage personal crisis warning signs. Client shared an action plan for their warning sign of increased negative thinking which included: use a healthy distraction, talk to a support, thought challenging, and reach out to his providers for additional help. Client appeared to benefit from creating a crisis action plan and increasing self-awareness. Client to continue IOP tx to continue to improve use of healthy coping skills, reduce depressive sx, and prevent decompensation. Narrative Note: []
--- NOTE | 2022-07-28 13:39 | BH.MDN_ITS ---
Multi-Disciplinary Note - Note 30-min Individual Time Started:: 12:10 Date: 07/28/22 Purpose of session/treatment goals addressed:: Used the session to discussion current symptoms and progress in IOP. Developed goals for treatment plan and obtained psychosocial history. Eye Contact:: Good Motor Activity:: Appropriate Appearance:: Casual Speech:: Appropriate Mood:: Anxious Affect:: Congruent Thoughts:: Linear, Logical, No evidence of hallucinations/delusions noted Staff Interventions:: treatment planning Client Response:: Pt reports improved mood since starting IOP last week. Benefiting from increased support and coping skills per his report. I haven't had any suicidal thoughts since starting. Continues to report significant depression, low energy, low motivation, and no purpose in life. Significant psychosocial stressors at home with his family causing anxiety, stress, and irritability. I just want peace. Goals that patient identified for IOP are improve conflict resolution and communication skills; decreased negative automatic thoughts (decreased depression), and increase purpose, motivation, and energy. Able to identify that having a purpose everyday would be helpful. Able to identify goals/strategies to increase purpose. I just want to bring people fani Some unrealistic expectations stating I want to give everyone hope and light op their days. Education on SMART goals and able to identify more realistic goals such as helping mother with cleaning, picking up food for family, etc. He is also interested in serving meals at local retirement. Risks/Concerns:: No risks or concerns noted. Progress Toward Goals/Plan:: Medication compliant. Hx of non-compliance with IOP in the past. Semi-consistent, calling off one day during his first week. Started new medication and reports no concerns or side effects. I actually woke up motivated and happy today which he attributes partially to the new medication. Psychosocial stressors and change at home appears to have been significant trigger to decompensation. Struggling to adjust to change and manage conflict amongst family. Ruminating extensively on the dysfunction at home and feels powerless. Able to identify goals for IOP. Identified SMART goals to accomplish to increase purpose. Will continue in IOP to maintain safety, prevent decompensation, and to increase healthy coping skills. Time Stopped:: 12:40
--- NOTE | 2022-07-28 13:39 | BH.PSA_ITS ---
Source of Information - Presenting Problems/Circumstances Problems, Referral Source, Mental Status, Client: Referred to IOP by [facility] ER social service technician after presenting with suicidal ideations with thoughts of methods on 07/16/22. Psychiatric Presentation - Psych Issues & Need for Admission Psychiatric Issues:: Tourette's Syndrome, OCD, MDD Past Psychiatric History - Treatment Hx Treatment History: Currently linked with psychiatrist at [facility]. Reports that he doesn't like his current psychiatrist and has struggled to maintain consistent counseling. Pt participated in [facility] IOP in 11/2021 however only attended a few IOP days and ultimately did return to complete the program. First hospitalization:: Denies Medication Trials:: Yes - several medication trials, refer to psych eval ECT Therapy:: No Age of first mental health symptoms: Diagnosed with Tourette's syndrome at age 7 and OCD as a child (handwashing and cleanliness obsessions and rituals). Describe (age, circumstance, etc) any past hospitalizations: Denies hx of psych hosptializations Current providers for mental health treatment (counselor, psychiatrist, machine adjuster leader case trim, etc.): Dr. Coby Lundberg- psychiatrist, [facility] & Family of Origin - Childhood Significant Childhood Events: Bullied in middle school due to his Tourette's Syndrome. - Family Who currently lives in your home?: Currently lives with his bio-parents, fraternal twin, and twin's GF. Describe family composition:: Single. Never . No children. Primary family support are his bio-parents, brother, sister, niece, and nephew. - Family History Family Hx of Psychiatric or AOD Problems: Mother, sister and maternal grandmother have depression and anxiety Ethnicity - Culture Do you identify yourself with any particular cultural, ethnic background, or community?: No - Sexuality Sexual Orientation: Heterosexual Spirituality - Christianity Do you currently identify with any organized jain?: Alevism - Pt is conflicted with this jain. Often leaves and returns to this protestant. - Beliefs Is there a particular form of support from this community you can use for your recovery?: Yes - Pt was attending protestant up to 3x weekly. Mental Status - Memory Recent Memory: Fair Remote Memory: Fair - Concentration Concentration: Fair - Eye Contact Eye Contact: Good - Speech Speech: Articulate - Thought Process Thought Process: Ruminations Insight: Fair Judgment: Fair Behavior: Anxious - Orientation Orientation: Time, Person, Place, Situation - Appearance Appearance: Appropriate - Mood Mood: Anxious, Depressed, Irritable - Affect Affect: Appropriate/calm Suicide Assessment - Suicidal Ideation Have you ever felt like hurting yourself?: Yes Please explain:: Reports fleeting suicidal thoughts with methods. Denies ever having specific plan or intent. Were you using ETOH/drugs at the time?: No Suicidal Intentional Rating Scale (SIRS): Current suicidal thoughts/No plan/Contracts for safety Physician Notification: If Active suicidal thoughts/Will not contract for safety is checked, contact physician and document in the Physician Notification section below. Violent Behavior/Abuse History - Homicidal Ideation Do you have any homicidal thoughts? If so, explain:: No Is there a known potential victim? If yes, who:: No - Abuse Have you ever been abused?: No - Life Events Are there any other significant life events?: Hardships - Housing issues, unable to maintain consistent employment due to mental health, - Safety Do you ever feel threatened in your home? If yes, describe:: No Adult Social History - Age 20 to Present Describe your current support system:: Primary support is his brother, mother, and sister. 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 Service - Service Have you ever been in the ?: No Legal History - Records Have you had any past legal charges?: No Do you have any current legal charges?: No Have you ever been incarcerated? If yes, describe:: No - Court Orders Have you had any past court orders for psychiatric treatment?: No Do you have a present court order for psychiatric treatment?: No Problem Checklist - Current Problem Areas Problem List: Depressed mood/sad, Anxiety, Anger/aggression, Impulsivity Discharge Planning Needs - Anticipated Follow-Up Mental Health Center (Name/Phone Number):: [facility] Private Therapist/Psychiatrist:: Dr. Coby Lundberg- psychiatrist Primary Care Physician: Alyssa Padgett NP Family and Caregiver Contacts:: Alpa Rodarte- mother Release of Information Signed:: Yes Predator Control Trapper's Assessment - Client's Needs What are the client's feelings about the program?: I plan on being more invested this time around. Pt was in [facility] IOP in 11/2021 however due to inconsistent attendance related to struggles getting up in the AM he did not complete the program. What are the client's goals?: I want to feel better so I can help people. Further discussion with pt identified that goals would be to increase healthy coping strategies for anger, depression, and anxiety. Also looking to increase purpose in his daily life. What are the client's strengths?: kind, empathetic, and appears motivated. Diagnoses - Diagnoses Diagnosis #1:: MDD, recurrent, severe, w/o psychotic features Diagnosis #2:: OCD Diagnosis #3:: Tourette's Syndrome Interpretive Summary - Interpretive Summary Interpretive Summary: Pt is a 32 y/o male with hx of MDD, OCD, and Tourette's Syndrome. No hx of psychiatric admissions. Pt presented to [facility] ER on 07/16/22 verbalizing suicidal ideations. Pt reports daily suicidal thoughts for the past month. According to pt his thoughts are primarily passive when overwhelmed and angry, however he has verbalized to family I should just shoot myself. No access to guns. I would never do anything I just want them (Family) to feel bad for how they treat me at times. Protective factors are his niece, nephew, and jain. No hx of suicide attempts. Psychosocial stressors include finances, inability to maintain employment, and current housing situation (lives with parents, brother, and brother's GF). Primary obstacle to employment according to pt is his mental health (Anxiety, panic, depression, and Tourette's). Tics which can worsen when overwhelmed or stressed and impact driving. Ruminates extensively which impact sleep. Feels like a failure. Denies HI or psychosis. Denies substance abuse. Not currently linked with counseling and believes that his current medication are not helpful. Family hx of depression (mother, sister, maternal GMA). Treatment Plan Recommendations - Recommendations Guidelines: Special needs identified to be included in the development of an individualized treatment plan regarding past psychiatric history and treatment, developmental events, family relationships/events/culture, past and/or current educational, occupational, social, and residential experience, and legal status. Recommendations:: Due to fleeting suicidal thoughts, mental health impacting functioning, and limited benefit from traditional outpatient recommended IOP level of care.
--- NOTE | 2022-07-28 13:39 | BH.MTP_ITS ---
[facility] - Patient Information Program Physician:: Corina Jose Primary Therapist:: Jose Angel Tello - Psychiatric Diagnoses Psychiatric Diagnoses:: 1. Major depressive disorder, recurrent, severe without psychosis. 2. OCD. 3. Tourette's syndrome Diagnosis Code(s):: f33.2 - Estimated LOS Estimated LOS (in weeks):: 8 Problem/Goal #1 - Problem/Goal #1 Stated Goal:: Client will reduce depressive symptoms, worthlessness, suicidal thoughts, and negative automatic thoughts, and anhedonia associated with major depressive disorder AEB self-report and decreased scores on the depression and suicidal ideation domains of the DSM-5 scales. Description of Barriers: hx of non-compliance with IOP, difficulty getting up in the AM for the program, psychosocial stressors, stigma associated with mental illness, conflict with primary support. Functional Impact: Recent ER visit due to mental health crisis and suicidal thoughts, depression impacts ability to maintain employment, mental health impacting functioning. Goal Relevant Strengths/Supports: verbalized motivation to make changes, engages in treatment when present. Primary support is mother and father. - Objectives Objective #1 Stated Objective: Client will work with therapist to develop a ?crisis plan? which includes emergency telephone numbers, internal/external coping strategies for SI/overwhelming emotions, lists of supports, warning signs, positive aspects of life, and motivations.? Interventions: Through individual and group counseling pt will learn various coping skills for emotional dysregulation and crisis management strategies. Therapist will provide patient with safety plan worksheet and work with pt. to develop individualized plan Discharge Criteria: complete safety plan Target Date: 09/16/22 Review Date: 08/13/22 Objective #2 Stated Objective: Client will learn and implement 2 conflict resolution and assertive communication skills to manage interpersonal problems. Interventions: Through group and individual sessions, client will learn str ategies to improve communication, resolve conflict, and increase emotional regulation to better manage interpersonal relationships. Therapist will also teach client about self-forgiveness, boundaries, and radical acceptance. Discharge Criteria: Able to identify and utilize 2 new conflict resolution and communication skills. Target Date: 09/16/22 Review Date: 08/13/22 Objective #3 Stated Objective: Client will identify and replace 2-3 negative thinking patterns that reinforce depressive symptoms, suicidal ideation, and negative self-talk. Interventions: Through individual and group counseling will assist client in identifying, challenging, and replacing dysfunctional thoughts with positive, more realistic thoughts. Therapist will use CBT and DBT techniques to help client gain awareness of thinking errors and learn how to more effectively handle negative thoughts that reinforce unhealthy coping skills Discharge Criteria: Able to identify negative automatic thoughts and 3-4 skills to challenge or reframe negative thoughts. Target Date: 09/16/22 Review Date: 08/13/22 Problem/Goal #2 - Problem/Goal #2 Stated Goal:: Client will increase emotional regulation and reduce intensity and duration of anxiety symptoms AEB self-report and decrease in anxiety domain on the DSM-5 scales. Description of Barriers: hx of non-compliance with IOP, difficulty getting up in the AM for the program, psychosocial stressors, stigma associated with mental illness, conflict with primary support. Functional Impact: Recent ER visit due to mental health crisis and suicidal thoughts, anxiety/panic attacks impacts ability to maintain employment, mental health impacting functioning. Goal Relevant Strengths/Supports: verbalized motivation to make changes, engages in treatment when present. Primary support is mother and father. - Objectives Objective #1 Stated Objective: Pt will develop an anxiety management plan which include in the moment calming skills, physiological warning signs, anxiety-producing thoughts which exacerbate the anxiety, internal coping strategies (reframing, challenging, acceptance, etc.), external coping skills (support, distraction, etc.), and helpful affirmations. Interventions: Through individual and group counseling will provide psychoeducation on calming, internal, and external coping skills. Will assist client in exploring what triggers anxiety and teach client coping strategies to effectively manage anxiety symptoms. Discharge Criteria: Develop anxiety management plan. Target Date: 09/16/22 Review Date: 08/13/22
--- NOTE | 2022-07-29 09:05 | BH.SGPN.GN ---
Behaviors/Verbalizations/Mental Status: [] Eye contact is good. Motor activity is appropriate. Appearance is casual. Speech is Appropriate. Mood is depressed. Affect is congruent. Thoughts are linear and logical. No evidence of psychosis. Client Response/Progress/Benefit: [] Participated at times during the group discussion. Attentive. Mental health win is improved relationship with his father. He discussed the impact that certain people have had on his recent mental health decompensation and is hoping to be able to learn more effective anger mgmt skills so he doesn?t ? blow-up? on anyone. Gave examples of the challenges of emotional regulation. The group provided support, encouragement, and feedback. Will continue in IOP to maintain safety, prevent decompensation, and increase health coping skills. Narrative Note: []
--- NOTE | 2022-07-29 10:13 | BH.SGPN.GN ---
Behaviors/Verbalizations/Mental Status: []Pt alert and oriented, casually dressed and groomed. Eye contact good. Motor activity appropriate. Speech within normal limits. Affect congruent, mood depressed and anxious. Thoughts linear, logical, no signs of hallucinations or delusions. Client Response/Progress/Benefit: []Pt was an active participant in group discussion and experiential activity. Attentive during psychoeducation on possible causes to developing and maintaining unhealthy coping habits which can impact mental health. Pt participated in interactive discussion identifying common unhealthy coping skills and pt identified personal unhealthy skills as irritability, sleep, and shutting down. ?Able to make connections between experiential activity (folder towers) and importance of having a solid base of internal and external coping skills. Benefited from increased awareness of internal and external coping skills and identifying unhealthy coping skills. Will continue IOP tx to promote gains, further increase self-care practices, and improve follow-through with personal goals. Narrative Note: []
--- NOTE | 2022-07-29 11:10 | BH.SGPN.GN ---
Behaviors/Verbalizations/Mental Status: []Pt alert and oriented, casually dressed and groomed. Eye contact good. Motor activity appropriate. Speech within normal limits. Affect congruent, mood depressed. Thoughts linear, logical, no signs of hallucinations or delusions Client Response/Progress/Benefit: []Pt responded well to session, taking notes and contributing. Group discussed the different categories of coping skills which included distraction, emotional release, grounding, self-love, and thought challenging.? Pt participated in creating a coping skills ?menu? from the five categories of coping skills. Pt's coping skill menu included: exercising, positive self-talk, 5-senses, talking to supports, and framing his thoughts. ?Appeared to benefit from increasing repertoire of healthy coping skills. Will continue IOP tx to reduce isolation, improve mood stability, and increase use of healthy coping skills. ?? Narrative Note: []
--- NOTE | 2022-08-01 09:00 | BH.SGPN.GN ---
Behaviors/Verbalizations/Mental Status: []Pt alert and oriented, casually dressed and groomed. Eye contact poor. Motor activity appropriate. Speech within normal limits. Affect congruent, mood euthymic and anxious. Thoughts linear, logical, no signs of hallucinations or delusions. Reviewed pt?s symptom tracker, no risk for suicidal ideation, plan, or intent. Client Response/Progress/Benefit: []Pt responded well to session, attentive and receptive to feedback. Client shared mental positive as using opposite action to set a boundary when his ex reached out to him yesterday. Client shared feeling accomplished and proud afterwards. Reports this is also his stressor and was receptive of feedback on ways to maintain boundaries as pt noted he struggles with this. Reported additional mental positive as spending time with his dad getting their pool ready for summer. Seemed to benefit from support from peers. Pt will continue IOP tx to increase healthy coping skills, challenge negative thinking, and prevent decompensation. Narrative Note: []
--- NOTE | 2022-08-01 10:10 | BH.SGPN.GN ---
Behaviors/Verbalizations/Mental Status: [] Eye contact is good. Motor activity is appropriate. Appearance is casual. Speech is Appropriate. Mood is euthymic. Affect is congruent. Thoughts are linear and logical. No evidence of psychosis. Client Response/Progress/Benefit: []Pt engaged participant AEB listening to others, engaging in activity, and providing feedback at times. Attentive during psychoeducation and provided insight into obstacles in the way of mental wellness. Pt stated in current reality he feels like fear and depression are holding him back from living and unexpected life stressors come out of nowhere which results in him freezing. In desired reality he wants to be able to set boundaries and recognize warning signs when he is starting to struggle so he can take action instead of freezing. Identified barriers to desired reality include: negative thinking, depression, toxic people, and fear. Benefited from taking look at current mental health state and obstacles for progress. Pt to continue IOP to improve confidence, challenge negative thoughts, and prevent decompensation. Narrative Note: []
--- NOTE | 2022-08-01 11:15 | BH.SGPN.GN ---
Behaviors/Verbalizations/Mental Status: []Pt alert and oriented, neatly dressed and groomed. Eye contact good. Motor activity appropriate. Speech within normal limits. Affect congruent, mood depressed. Thoughts linear, logical, no signs of hallucinations or delusions. Client Response/Progress/Benefit: []Pt an active participant, encouraging peers and contributed as group brainstormed ideas on how to cope with internal barriers that keep Pts stuck from moving towards goals. Able to identify barriers to desired reality. Worked with group to identify strategies to help overcome barriers. Identified personal barriers to desired reality. Pt wants to work on overcoming the barrier of lack of boundaries by self-reflecting and identifying his values. Benefited from group by identifying obstacles and solutions to desired reality.? Pt to continue IOP to increase healthy coping, challenge negative thoughts, and prevent decompensation. Narrative Note: []
--- NOTE | 2022-08-05 09:07 | BH.SGPN.GN ---
Behaviors/Verbalizations/Mental Status: []Pt alert and oriented, casually dressed and groomed. Eye contact poor. Motor activity appropriate. Speech within normal limits. Affect congruent, mood euthymic and anxious. Thoughts linear, logical, no signs of hallucinations or delusions. Reviewed pt?s symptom tracker, risk for suicidal ideation within baseline, denies plan, or intent. Client Response/Progress/Benefit: []Pt responded well to session, attentive and receptive to feedback. Pt shared mental positive as taking time to reach out to a friend and identify some potential hobbies he would be interested in. Shared plans to try playing games on his new [employer], as well as spending time hiking and taking photos. Reported hopes that beginning a new hobby will aid in reducing his irritability and help to promote improved mood stability. Additional mental positive not as reaching out to his brother?s girlfriend to address his recent mood swings and apologize for losing hias temper on her earlier in the week. Noted that his irritability as a current stressor. Seemed to benefit from supportive feedback from peers and identifying areas pt deserves credit. Pt will continue IOP tx to continue to promote use of healthy coping skills, improve anger management/mood stability, and prevent decompensation. Narrative Note: []
--- NOTE | 2022-08-05 10:10 | BH.SGPN.GN ---
Behaviors/Verbalizations/Mental Status: [] Eye contact is good. Alert and oriented. Motor activity is appropriate. Appearance is casual. grooming is appropriate. Speech is Appropriate. Mood is euthymic. Affect is congruent. Thoughts are linear and logical. No evidence of psychosis or hallucinations. Client Response/Progress/Benefit: [] Client active participate AEB listening attentively to others and providing contributions throughout. The group identified impacts of not managing emotions on communication as over assuming, stone-walling, cutting conversations short, and monopolizing the conversation. Client engaged in activity, able to manage emotions in the moment. Client processed activity with group members on the challenges that occurred and how they overcame them. Client noted that not being able to see during activity invoked stress for him which made it more difficult to be successful. Benefited from increased awareness of how stress and emotions can impact one's ability to communicate Client will continue IOP to increase consistency of healthy coping skill application, challenge negative thoughts, and increase overall functioning. Narrative Note: []
--- NOTE | 2022-08-05 11:15 | BH.SGPN.GN ---
Behaviors/Verbalizations/Mental Status: [] Client alert and oriented, casually dressed and groomed. Eye contact good. Motor activity appropriate. Speech within normal limits. Affect congruent, mood euthymic. Thoughts linear, logical, no signs of hallucinations or delusions. Client Response/Progress/Benefit: [] Client able to identify feelings and behaviors for each zone. Client identified coping skills one can use to support self in each zone. Client discussed when in the blue zone he can cope by being physically active. When in the yellow zone, client identified he can talk to supports and listen to soothing music. While in the red zone client identified utilizing grounding techniques and going to the gym to cope. Benefited from increased education on zones of regulation of stages of alertness for emotions and healthy coping skills to use for each zone. Client will continue IOP tx to prevent decompensation, improve daily functioning, increase ability to regulate emotions. Narrative Note: []
--- NOTE | 2022-08-06 09:00 | BH.SGPN.GN ---
Behaviors/Verbalizations/Mental Status: []Pt alert and oriented, casually dressed and groomed. Eye contact good. Motor activity WNL. Speech within normal limits. Affect congruent, mood anxious. Thoughts linear, logical, no signs of hallucinations or delusions. Reviewed pt?s symptom tracker and pt denies any active SI, plan, or intent. Client Response/Progress/Benefit: []Client responded well to session AEB listening attentively to peers and sharing thoughts and feelings. Client reported mental health positive as ?getting a lot done around the house yesterday. Client stated he helped his dad put in a rock bed wall to prevent flooding from the neighbors yard. Client stated additional mental health win as being excited to open his pool in less than two weeks. Client reported getting to swim as a healthy stress reliever and coping skill for him. Client stated a consistent stressor for him has been trying to get along with his brother's girlfriend whom lives with them at their parents house. Client reported yesterday he decided to set a boundary with his brothers girlfriend by saying he needs distance because he does not like how she disrespects his parents and parents house. Client recognized this as a positive because he was assertive with his communication and set firm boundaries. Client seemed to benefit from support from peers. Will continue IOP tx to promote use of healthy coping skills, challenge distorted thoughts, and prevent decompensation. Narrative Note: []
--- NOTE | 2022-08-06 10:05 | BH.SGPN.GN ---
Behaviors/Verbalizations/Mental Status: []Pt alert and oriented, neatly dressed and groomed. Eye contact good. Motor activity appropriate. Speech within normal limits. Affect congruent, mood calm. Thoughts linear, logical, no signs of hallucinations or delusions. Client Response/Progress/Benefit: []Pt receptive of session, actively engaged throughout AEB taking notes and listening to discussion. Appeared to connect with group topic of cognitive distortions and the impact of thought patterns on mental health, coping behaviors, and relationships. Pt reports connecting with distortions of mind-reading and jumping to conclusions which has led to ?me creating scenarios in my head.? Pt appeared to benefit from gaining insight on distorted thinking patterns and how this impacts overall mental health. Will continue IOP tx to reduce depressive symptoms, increase mood stability, and reduce isolation. Narrative Note: []
--- NOTE | 2022-08-06 11:12 | BH.SGPN.GN ---
Behaviors/Verbalizations/Mental Status: []Eye contact is good. Motor activity is appropriate. Appearance is casual. Speech is WNL. Mood is anxious and euthymic. Affect is congruent. Thoughts are linear and logical. No evidence of psychosis. Client Response/Progress/Benefit: []Pt did well to remain an engaged participant AEB providing input during small group discussion and engaging in activity. Activity involved working with peers to answer questions related to psychoeducation on cognitive distortions and practicing reframing distorted thoughts. Pt collaborated with the group to determine the answers. Identified cognitive distortions pt personally struggles with the most as magnification/minimization, jumping to conclusions, and all or nothing thinking. Able to identify the impact distortions has on pt?s mental health. Benefited from rehearsing ways to challenge/reframe cognitive distortions and by gaining increased insight into examples/definitions of 10 most common cognitive distortions. Will continue IOP to improve mood management, challenge distorted thought patterns, and prevent decompensation. Narrative Note: []
--- NOTE | 2022-08-06 15:44 | BH.MDN ---
Multi-Disciplinary Note - Note 45-min Individual Time Started:: 12:05 Date: 08/06/22 Purpose of session/treatment goals addressed:: Reviewed progress and symptoms. Used the session to discuss emotion regulation strategies focusing on anger at pt's request. Eye Contact:: Good Motor Activity:: Appropriate Appearance:: Casual Speech:: Appropriate Mood:: Anxious Affect:: Congruent Thoughts:: Linear, Logical, No evidence of hallucinations/delusions noted Staff Interventions:: psychoeducation on: - anger mgmt skills, goal setting Client Response:: Pt shared in process group this AM that he wants to focus on anger mgmt. He shared that he continues to struggle with his anger towards his brother's GF who is currently living in the house with pt, his parents, and his brother. He feels that she is taking advantage of his brother, his parents, and him which is an anger trigger to him. He has made efforts to reconcile the relationship, however yesterday had to set a firm boundary which he set through text. Pt has hx of people-pleasing behaviors so setting boundary and being assertive with his needs is challenging. Receptive to education on anger mgmt skills. Able to identify 13 physiological signs of anger and where there signs lay on anger continuum. We discussed be able to identify when his anger is at lower levels and to take action rather then ignore physiological warning signs. Discussed proactive and reactive coping skills. Risks/Concerns:: no risks or concerns noted. Progress Toward Goals/Plan:: Pt reports that he is gaining insight and skills in the IOP program. Consistent attendance. Engaged at times. He is medication compliant and believes that recent medication changes have been beneficial to his mental health. Self-reports decrease in depression with no suicidal thoughts since admission. Receptive to psychoeducation today. Disruption in routine and family balance has been a significant stressor for patient which has greatly impacted his mood over the past several months leading to suicidal thoughts, crisis ER visit for SI, and inability to maintain employment. Ruminates and feels guilty for his struggles and lack of financial independence. Will continue in IOP to maintain safety, prevent decompensation, increase healthy coping, and improve functioning. Time Stopped:: 12:50
--- NOTE | 2022-08-07 09:01 | BH.SGPN.GN ---
Behaviors/Verbalizations/Mental Status: []Pt alert and oriented, casually dressed and groomed. Eye contact good. Motor activity appropriate. Speech within normal limits. Affect congruent, mood euthymic and positive. Thoughts linear, logical, no signs of hallucinations or delusions. Reviewed pt?s symptom tracker, no risk for suicidal ideation, plan, or intent. Client Response/Progress/Benefit: []Pt responded well to session, attentive and receptive to feedback. Client reported mental positive as showing up to IOP today despite feeling really tired from all of the outside work has been doing over the last week. Client noted additional mental positive as working with his IOP therapist yesterday to develop an anger management plan which he feels like will be really helpful for him. Client noted continued stressor is being around his brother's girlfriend whom lives at their parents house. Client receptive to feedback and support from peers. Client realized he needs to focus on what is in his control and pay attention to his negative and anger thought patterns. Stated today he plans to go hiking as a way to cope. Seemed to benefit from support from peers. Pt will continue IOP tx to continue to promote use of healthy coping skills, decrease anger, and prevent decompensation.
--- NOTE | 2022-08-12 09:05 | BH.SGPN.GN ---
Behaviors/Verbalizations/Mental Status: [] Eye contact is good. Motor activity is appropriate. Appearance is casual. Speech is Appropriate. Mood is euthymic. Affect is full. Thoughts are linear and logical. No evidence of psychosis. Reviewed daily check in sheet and no reports of suicidal ideations or intent. Client Response/Progress/Benefit: [] Pt participated at times during the group discussion. Attentive. Daily symptom tracker notes 03/27 for irritability. Mental health win was setting boundaries and utilizing assertive communication yesterday. Shared the positive impact that assertive communication had on relationships and also decreased some of his resentments. Also shared examples of him utilizing anger mgmt. skills. Benefited from group support, encouragement, and feedback. Will continue in IOP to maintain safety, prevent decompensation, and to improve healthy coping. Narrative Note: []
--- NOTE | 2022-08-12 10:20 | BH.SGPN.GN ---
Behaviors/Verbalizations/Mental Status: []Pt alert and oriented, casually dressed and groomed. Eye contact good. Motor activity appropriate. Speech tangential. Affect congruent, mood calm. Thoughts linear, logical, no signs of hallucinations or delusions. Client Response/Progress/Benefit: []Pt participated in group discussions. Active participant in experiential activity. Attentive during psychoeducation. Attentive as peers shared types of social supports and pt identified his own as hobbies, sports, family, anabaptism, and laure. Attentive as group identified mental health benefits of social support. Contributed as peers worked together to identify obstacles to utilizing support. Pt identified personal barriers as remembering the support he has and depending on certain ones ?too much.? Benefited from increased awareness of mental health benefits of social support and obstacles that prevent one from utilizing support. Will continue IOP tx to improve emotional regulation skills, further increase mood stability, and reduce avoidance. Narrative Note: []
--- NOTE | 2022-08-12 11:20 | BH.SGPN.GN ---
Behaviors/Verbalizations/Mental Status: []Client alert and oriented, casually dressed and groomed. Eye contact good. Motor activity appropriate. Speech within normal limits. Affect congruent, mood euthymic and anxious. Thoughts linear, logical, no signs of hallucinations or delusions. Client Response/Progress/Benefit: [] Client was an active participant throughout AEB contributing to small group discussion, participating in the activity, and taking notes. Client provided input during discussion on the types of support our supports can provide. Able to identify the types of supports provided by current support system and barriers that get in the way of using those supports. Client reported gaining awareness that they could benefit from more social supports. Shared this will help to provide healthy distraction, increase his supports, and get him out of the house more consistently. Client identified steps to achieve this as researching options in his area, and using opposite action to engage in at least one new opportunity. Client seemed to benefit from identifying the types of support and areas client could benefit from improving. Recommended to continue IOP tx to increase healthy coping, challenge and replace negative thoughts, and improve overall functioning. Narrative Note: []
--- NOTE | 2022-08-13 09:00 | BH.SGPN.GN ---
Behaviors/Verbalizations/Mental Status: []Pt alert and oriented, neatly dressed and groomed. Eye contact good. Motor activity appropriate. Speech within normal limits. Affect congruent, mood euthymic. Thoughts linear, logical, no signs of hallucinations or delusions. Reviewed pt?s symptom tracker, no risk for suicidal ideation, plan, or intent as of 08/13/22 Client Response/Progress/Benefit: []Pt responded well to session, attentive and engaged. Pt reports feeling optimistic this morning. Pt shared he was able to get an appointment with a new psychiatrist and he joined his old orthodoxy again. Pt stated this orthodoxy was once not a healthy place for him, but pt reports belief that it can be better now with boundaries. Pt shared he hopeful about a new psych provider, but also anxious that this provider will not continue prescribing pt's Tic medication. Pt receptive to feedback from group which encouraged pt to call his new provider with his concerns. Pt will continue IOP tx to promote mood stability, improve emotional regulation skills, and improve daily functioning. Narrative Note: []
--- NOTE | 2022-08-13 11:10 | BH.SGPN.GN ---
Behaviors/Verbalizations/Mental Status: []Pt alert and oriented, casually dressed and groomed. Eye contact good. Motor activity appropriate. Speech within normal limits. Affect congruent, mood euthymic. Thoughts linear, logical, no signs of hallucinations or delusions. Client Response/Progress/Benefit: []Pt was an active participant during activity and discussion AEB providing some input, connecting with peers, as well as taking notes throughout. Pt did well to engage as group worked on identifying characteristics and benefits of adopting a growth mindset. Worked with fellow participants in reframing the example fixed thoughts into growth mindset thoughts. Reframed personal fixed thought of ?I can?t get in shape physically? with growth mindset thought of ?I can commit to bettering my physical health and continue to make progress.? Benefitted from discussing benefits of growth mindset and brainstorming strategies for prompting growth-mindset. Pt appeared to benefit from working in small groups to challenge own thoughts and help peers. Pt will continue IOP tx to improve mood stability, reinforce healthy coping skills, and further prevent decompensation. Narrative Note: []
--- NOTE | 2022-08-13 11:35 | PCM.BH.PN_ITS ---
Progress Note Progress Note: History of Present Illness/Interim History: The patient is a 32-year-old male with a history of depression anxiety and OCD who is seen in follow-up at the [facility] behavioral health IOP program. I last saw the patient 3 weeks ago and at that time he was started on Auvelity to help with his depression and his intrusive thoughts. In addition we weaned and discontinued the Cymbalta because he had been on it for long time and we felt it was no longer helping him. The patient has done well since discontinuing the Cymbalta 2 weeks ago and is tolerating the ability well and feels he is improving. He is enjoying the IOP and feels he is learning valuable skills in the program. He states that he is feeling much better and his depression is almost nonexistent now. He did feel somewhat down last weekend when he had an argument with his father but other than that he has been much improved. He states he I finally feel like I have a purpose. He states that he is not sad every day and his energy levels are much improved and he is not needing to take naps anymore. He is sleeping about 8 to 10 hours a day now instead of the 14 hours he was sleeping before. He has decreased his energy drinks and is only drinking 1/day now instead of 3. He denies passive thoughts of and denies suicidal ideation, plan for suicide, homicidal ideation, hallucinations, or delusions. He still has some anger issues but has only had 1 blowup in the past 3 weeks and he used to get angry more often than this. He has decreased his alcohol use to 1-2 beers per week instead of 12 beers per week. He is consistent and engaged in the program and is making progress. Current Psychiatric Medications: [] Auvelity 45-105 mg p.o. twice daily (x3 weeks); fluphenazine 5 mg p.o. daily (for Tourette's syndrome); Cymbalta discontinued 2 weeks ago; Klonopin 0.5 mg p.o. as needed which she does not take but rarely. Mental Status Examination: [] The patient is a tall male who appears fit for his stated age and is casually dressed and groomed with good hygiene. He has no psychomotor agitation or retardation and is ambulatory with a normal gait. Eye contact is good and speech is normal rate and rhythm and fluent with no pressure. He is cooperative and pleasant during the interview. Mood is minimally depressed to euthymic. Affect is full and normal. Thought process is goal-directed and organized. Thought content: The patient is hopeful for the future. There is no evidence of passive thoughts of , suicidal ideation, homicidal ideation, plan for suicide, hallucinations or delusions. Reality testing is intact. Judgment is intact. Insight is fair and improving. Impulsivity is low. Diagnoses: [] 1. Major depressive disorder, recurrent, severe without psychosis (resolving) 2. OCD 3. Tourette's syndrome 4. Work and primary support issues Plan: [] The patient will continue the IOP program at [facility] as the structure, support, education and group therapy will hopefully prevent worsening of the patient's symptoms. He felt safe during the interview and if it anytime he does not feel safe he will let us know or go to the emergency room. The risk, side effects and possible complications of the medications were discussed with the patient and he again and he understands and accepts these. No medication changes were made at this time. Refill prescriptions were given for Auvelity and fluphenazine. The patient will continue to follow-up with his outpatient medical and psychiatric providers and I will see the patient on regular follow-up while he is in the IOP program.
--- NOTE | 2022-08-13 14:18 | BH.TPR_ITS ---
Treatment Plan Review Demographics Date of Admission:: 07/22/22 Date of Treatment Plan Review:: 08/13/22 Admitting Diagnoses:: 1. Major depressive disorder, recurrent, severe without psychosis (resolving) 2. OCD 3. Tourette's syndrome Current Diagnoses:: 1. Major depressive disorder, recurrent, severe without psychosis (resolving) 2. OCD 3. Tourette's syndrome Patient Status Patient's Response to Treatment:: Pt reports that he is gaining insight and skills in the IOP program. Consistent attendance. Engaged at times. He is medication compliant and believes that recent medication changes have been beneficial to his mental health. Self-reports decrease in depression with no suicidal thoughts since admission. Outcome scores indicate an overall 75% reduction in symptoms since his admission. Outcomes indicate a 75% reduction in the depression domain, 50% reduction in the anger domain, 33% reduction in the anxiety domain, and he denied any suicidal thoughts in the past 2 weeks. DSM-5 Cross-Cutting scales also reported improved sleep, a significant reduction in intrusive thoughts/urges, and increased purpose. Status of Current Problems and Symptoms: Disruption in routine and family balance has been a significant stressor for patient which has greatly impacted his mood over the past several months leading to suicidal thoughts, crisis ER visit for SI, and inability to maintain employment. Ruminates and feels guilty for his struggles and lack of financial independence. Pt's struggles with consistent use of skills and tends to catastrophize when presented with situational stressors. Currently his brother's GF is primary stressor as she has been living in the house with pt, his brother, and their parents. Progress Problem #1: Problem Name:: Depression Status of Goals:: Overall pt denies any suicidal thoughts in the past 2 weeks. Outcome scores indicate an overall 75% reduction in symptoms since his admission. obj1- Pt is able to verbalize a crisis/safety plan with internal/external skills as well as support and crisis hotline numbers. Primary struggle in the past has been to implement plan when feeling overwhelmed. obj2- Pt is able to verbalize increased communication and conflict resolution skills, however again struggles to consistently utilize these skills. obj3- Pt had been able to identify several negative thinking patterns which impact his overall mental health (people-pleasing, catastrophizing, comparing self to other, etc) Team Recommendations:: continue with current plan. While pt has shown improvement he continue to struggle with utilizing skills when presented with s ituational stressors Problem #2: Problem Name:: Anxiety Status of Goals:: According to outcome measurements pt reports a 33% reduction in the anxiety domain Obj 1- Not completed. Pt has been learning and gathering skills to incorporate into his anxiety mgmt plan however this has not yet been created Team Recommendations:: continue with current plan.
--- NOTE | 2022-08-19 09:05 | BH.SGPN.GN ---
Behaviors/Verbalizations/Mental Status: [] Eye contact is good. Motor activity is appropriate. Appearance is casual. Speech is Appropriate. Mood is anxious. Affect is congruent. Thoughts are linear and logical. No evidence of psychosis. Reviewed daily check in sheet and no reports of suicidal ideations or intent. Client Response/Progress/Benefit: [] Pt participated at times during the group discussion. [facility] gunjan was participating in self-care over the holiday weekend. He followed through with making an appointment with outpatient clinical education academic coordinator which is on 09/04/22. Shared that he went back to a pentecostalism which in the past has been detrimental to his mental health. He often feels pressure from the pentecostalism members reaching out to him to return. ? I?m a people-pleaser?. States that the pentecostalism is ?triggering? however does not elaborate. ? I just need to take a break?. This cycle or pattern with the pentecostalism has been going on for years and appears to be a significant trigger to worsening depression. Emotion for today is ?content?. Benefited from group support, encouragement, and feedback. Will continue in IOP to maintain safety, prevent decompensation, and improve daily functioning Narrative Note: []
--- NOTE | 2022-08-19 11:10 | BH.SGPN.GN ---
Behaviors/Verbalizations/Mental Status: []Client alert and oriented, casually dressed and groomed. Eye contact good. Motor activity appropriate. Speech within normal limits. Affect congruent, mood euthymic. Thoughts linear, logical, no signs of hallucinations or delusions. Client Response/Progress/Benefit: []Client responded well to session, engaged and taking notes. Worked with group to identify characteristics of healthy and unhealthy relationships. Attentive during psychoeducation about characteristics of healthy, unhealthy, and abusive relationships. Client identified healthy areas of a current relationship to include: supporting each other?s interests, feel emotionally validated when needing to ?vent?, and able to receive financial support at this time without judgement. Shared wanting to work on addressing agreeing to thinks he would otherwise say ?no? to by challenging himself to use opposite action to implement more assertive communication. Appeared to benefit from identifying areas they are doing well in as well as areas client wants to work on to build healthier relationships. Client to continue IOP to increase healthy coping, reduce irritability, improve daily functioning, and prevent decompensation. Narrative Note: []
--- NOTE | 2022-09-19 11:24 | BH.COMM ---
Communication Note Communication with Client Communication Note: Pt did not call or show for IOP today. This is 2nd no call/ no show and 3rd missed day. Pt has not attended IOP all week. Message was left with him yesterday in which therapist encouraged him to reach out.
--- NOTE | 2022-09-22 13:52 | BH.TPR ---
Treatment Plan Review Demographics Date of Admission:: 07/22/22 Date of Treatment Plan Review:: 08/13/22 Patient Status Patient's Response to Treatment:: Pt reports that he is gaining insight and skills in the IOP program. Consistent attendance. Engaged at times. He is medication compliant and believes that recent medication changes have been beneficial to his mental health. Self-reports decrease in depression with no suicidal thoughts since admission. Outcome scores indicate an overall 75% reduction in symptoms since his admission. Outcomes indicate a 75% reduction in the depression domain, 50% reduction in the anger domain, 33% reduction in the anxiety domain, and he denied any suicidal thoughts in the past 2 weeks. DSM-5 Cross-Cutting scales also reported improved sleep, a significant reduction in intrusive thoughts/urges, and increased purpose. Status of Current Problems and Symptoms: Disruption in routine and family balance has been a significant stressor for patient which has greatly impacted his mood over the past several months leading to suicidal thoughts, crisis ER visit for SI, and inability to maintain employment. Ruminates and feels guilty for his struggles and lack of financial independence. Pt's struggles with consistent use of skills and tends to catastrophize when presented with situational stressors. Currently his brother's GF is primary stressor as she has been living in the house with pt, his brother, and their parents. Progress Problem #1: Problem Name:: Depression Status of Goals:: Overall pt denies any suicidal thoughts in the past 2 weeks. Outcome scores indicate an overall 75% reduction in symptoms since his admission. obj1- Pt is able to verbalize a crisis/safety plan with internal/external skills as well as support and crisis hotline numbers. Primary struggle in the past has been to implement plan when feeling overwhelmed. obj2- Pt is able to verbalize increased communication and conflict resolution skills, however again struggles to consistently utilize these skills. obj3- Pt had been able to identify several negative thinking patterns which impact his overall mental health (people-pleasing, catastrophizing, comparing self to other, etc) Team Recommendations:: continue with current plan. While pt has shown improvement he continue to struggle with utilizing skills when presented with situational stressors Problem #2: Problem Name:: Anxiety Status of Goals:: According to outcome measurements pt reports a 33% reduction in the anxiety domain obj 1- Not completed. Pt has been learning and gathering skills to incorporate into his anxiety mgmt plan however this has not yet been created. Team Recommendations:: continue with current plan.
== END 2022-08-20 23:59 ==
LOC: BHIOP 09:16
PROVIDERS: PCP Student in an Organized Health Care Education/Training Program; Referring Provider Psychiatry & Neurology Psychiatry; Visit Provider Psychiatry & Neurology Psychiatry
DX: F33.2 Major depressive disorder, recurrent severe without psychotic features (principal); F60.5 Obsessive-compulsive personality disorder; F95.2 Tourette's disorder
CPT/HCPCS: 90792; 99213; H2012; H2020; S9480; T1002; 90832; 90834

== ENCOUNTER 2022-08-21 07:41 | Outpatient (RCR) | payer MEDICAID, SELFPAY ==
[2022-08-21 00:43] VITALS: BP 153/96; PULSE 80
--- NOTE | 2022-08-21 09:05 | BH.SGPN.GN ---
Behaviors/Verbalizations/Mental Status: [] Eye contact is good. Motor activity is appropriate. Appearance is casual. Speech is Appropriate. Mood is anxious. Affect is full. Thoughts are linear and logical. No evidence of psychosis. Reviewed daily check in sheet and no reports of suicidal ideations or intent. Client Response/Progress/Benefit: [] Pt was an active participant in group discussions. Attentive. Daily symptom tracker notes 03/27 for depression and irritability. Reports decreased anger and resentment as primary stressor (brother?s GF) moved out of the house. Overall he has noticed an improved mood and decreased emotional dysregulation which he attributes to his new medication and IOP support. Decreased erratic mood swings. He reports that he once again is going to set up boundaries with his islam and shared how members of this islam have been ?harassing? him via text and social media. These islam members are reaching out to try and persuade him to rejoin. Pt admits that he is a people-pleaser and has to set and maintain boundaries. Benefited from group support, encouragement, and feedback. Will continue in IOP to maintain safety, stabilize mood, and improve functioning. Narrative Note: []
--- NOTE | 2022-08-21 10:10 | BH.SGPN.GN ---
Behaviors/Verbalizations/Mental Status: []Client alert and oriented, casually dressed and groomed. Eye contact fair. Motor activity appropriate. Speech within normal limits. Affect congruent, mood euthymic. Thoughts linear, logical, no signs of hallucinations or delusions. Client Response/Progress/Benefit: []Client was an active participant in group discussions and activity. Attentive during psychoeducation. Client engaged in activity in which group was able to make connections about how can be easier to find positives in others compared to self. Engaged in interactive discussion on the definition of perspective, how perspective is formed, and why perspective is important in treatment. Client shared when he first tried to do IOP he had a negative perspective which resulted in him quitting the program. Stated this time in IOP his perspective is more positive which he stated has helped him see progress and stick with it. Will continue in IOP to increase healthy coping, stabilize moods, and prevent decompensation.
--- NOTE | 2022-08-21 11:13 | BH.SGPN.GN ---
Behaviors/Verbalizations/Mental Status: []Pt alert and oriented, casually dressed and groomed. Eye contact good. Motor activity appropriate. Speech within normal limits. Affect congruent, mood euthymic. Thoughts linear, logical, no signs of hallucinations or delusions. Client Response/Progress/Benefit: []Pt was attentive and contributed to small group discussion. Pt reflected on their perspective today which pt shared was hopeful and motivated Pt stated their perspective has significantly shifted since their first day of IOP. Pt worked with group to identify strategies to challenge one?s perspective and one of these strategies was identifying and using strengths. Pt acknowledged one of their personal strengths of being optimistic and pt ?wants to work on challenging perspective by practicing opposite action when his thought are negative. Benefited from identifying personal strengths and strategies for challenging perspective. Pt to continue IOP tx to promote mood stability, combat distortions, and increase use of healthy coping skills. ? Narrative Note: []
--- NOTE | 2022-08-22 09:00 | BH.SGPN.GN ---
Behaviors/Verbalizations/Mental Status: [] Eye contact is good. Motor activity is appropriate. Appearance is casual. Speech is Appropriate. Mood is anxious. Affect is congruent. Thoughts are linear and logical. No evidence of psychosis. Reviewed daily check in sheet and no reports of suicidal ideations or intent. Client Response/Progress/Benefit: [] Pt was an active participant in group discussion. Attentive. Emotion for today is tired. Mental health wins is I'm here. Shared that he had poor sleep last night and did not get to sleep until early AM. He choose not to elaborate on what kept him up till early in the AM, however states that he has begun to ruminate on finding a job. Asked for feedback from the group on finding employment and maintaining employment with mental health struggles. Guarded this AM regarding stressors. Benefited from group support and encouragement. Will continue in IOP to maintain safety, increase healthy coping, and to prevent decompensation. Narrative Note: []
--- NOTE | 2022-08-22 10:05 | BH.SGPN.GN ---
Behaviors/Verbalizations/Mental Status: []Pt alert and oriented, neatly dressed and groomed. Eye contact good. Motor activity appropriate. Speech within normal limits. Affect congruent, mood euthymic. Thoughts linear, logical, no signs of hallucinations or delusions. Client Response/Progress/Benefit: []Pt responded well to session, attentive and providing to discussion. Pt connected with the quote and shared that feeling are good signals that help us see what is wrong, but sometimes lead to unhealthy choices. Pt gave example of how his emotions can signal inappropriate guilt, based on someone changing their tone of voice when talking to pt. Group discussed other impacts of unmanaged guilt which included withdrawing from relationships and lack of boundaries. Pt participated in activity and recognized the importance of being patient and communicating with his team. Pt appeared to benefit from learning about the different types of guilt and how unmanaged guilt can impact mental health. Pt will continue IOP tx to promote mood stability, monitor medications, and improve daily functioning. Narrative Note: []
--- NOTE | 2022-08-22 11:10 | BH.SGPN.GN ---
Behaviors/Verbalizations/Mental Status: []Pt alert and oriented, casually dressed and groomed. Eye contact good. Motor activity appropriate. Speech within normal limits. Affect congruent, mood euthymic. Thoughts linear, logical, no signs of hallucinations or delusions. Client Response/Progress/Benefit: []Pt engaged participant AEB listening attentively to others and providing input throughout group. Pt worked cooperatively with small group during challenge activity. Able to make connections from activity about managing guilt. Pt attentive during psychoeducation about different strategies to manage guilt. Pt worked with small group to identify strategies to manage unhealthy guilt. Client shared he feels guilty when he believes over plans then has to cancel on someone. Client able to use strategies discussed to work through his guilt and problem solve on how to correct problem. Pt seemed to benefit from learning about strategies to manage healthy and unhealthy guilt. Pt to continue IOP to continue challenge distortions, continue using healthy skills, and prevent decompensation.
--- NOTE | 2022-08-22 15:03 | BH.MDN ---
Multi-Disciplinary Note - Note 60-min Individual Time Started:: 12:05 Date: 08/22/22 Purpose of session/treatment goals addressed:: Reviewed current symptoms and progress in IOP. Worked on treatment goal 1, objective 2; assertive communication and conflict management skills. Eye Contact:: Good Motor Activity:: Other - should and verbal tic (hx of tourettes) Appearance:: Casual Speech:: Appropriate Mood:: Anxious Affect:: Congruent Thoughts:: Linear, Logical Staff Interventions:: thought challenging, psychoeducation on: - decision-making skills, other Client Response:: Pt had reported in earlier group that he struggled to get to sleep last night due to ruminations. Therapist inquired further and pt shared that he had reached out to his ex-gf. Pt admits that he wants to be with her however she is a follower of the Religion [employer]oration[employer] and in order to be in a relationship with her he must adhere the the Religion rules. Pt has tried to adhere to this restoration in the past however overall his experiences there have been negative and detrimental to his mental health. Pt had entered and left this congregation numerous times over the past 2 years. As recently as yesterday he stated that it was a cult and he was blocking his ex and the hydroelectric machinery mechanic both of whom text him daily. However today he states that he is going to return to the congregation. Struggles to maintain boundaries due to people-pleasing behaviors and desire to be in a relationship. 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 Difficult to leave the congregation as this would lead to his ex-gf not speaking to him. His family and friends have been encouraging him to leave this congregation, however the possibility of this relationship is strong. The decision causes significant rumination, anger, anxiety, fear, depression, regret, and guilt which have impacted his mental health and self-worth for the past several years. Risks/Concerns:: no risks or concerns noted. Progress Toward Goals/Plan:: Regression noted since last visit. Increased ruminations, anxiety, worry, and uncertainty which are mainly triggered by ex-gf and spirituality issues. Pt was up till 5am with anxiety and ruminations which has impacted him this AM. Used the session to work on decision-making skills, conflict resolution skills, boundary setting, and assertive communication. Will continue in IOP to maintain safety, increase healthy coping, and prevent decompensation. Time Stopped:: 12:55
--- NOTE | 2022-08-26 09:00 | BH.SGPN.GN ---
Behaviors/Verbalizations/Mental Status: []Pt alert and oriented, casually dressed and groomed. Eye contact good. Motor activity appropriate. Speech within normal limits. Affect congruent, mood euthymic. Thoughts linear, logical, no signs of hallucinations or delusions. Reviewed pt?s symptom tracker, no risk for suicidal ideation, plan, or intent as of 08/26/22 Client Response/Progress/Benefit: []Pt responded well to session, attentive and engaged. Pt reports feeling centered this morning. Pt shared he is happy that his medications are finally back on track and he does not feel nauseous today. Pt reported his wins include using opposite action to get to IOP today because he was tired and he gave himself credit for his consistency. Pt's stressor today is ongoing conflict with his brother's girlfriend. Pt appeared to benefit from connecting with peers and reflecting on his progress with skill utilization. Pt will continue IOP tx to promote mood stability, further improve use of healthy coping skills, and reduce negative thinking patterns. Narrative Note: []
--- NOTE | 2022-08-26 10:10 | BH.SGPN.GN ---
Behaviors/Verbalizations/Mental Status: []Pt alert and oriented, casually dressed and groomed. Eye contact good. Motor activity appropriate. Speech within normal limits. Affect congruent, mood euthymic. Thoughts linear, logical, no signs of hallucinations or delusions. Client Response/Progress/Benefit: []Pt receptive to session AEB contributing to discussion, as well listening attentively to others, and taking notes. Worked with group to brainstorm the positive and negative aspects of stress on physical and mental health. Group did well to identify the benefits of stress as well as the impact of distress on performance, relationships, and mental health. Pt identified their personal top stressors as: living space problems, money problems, and finding a job. Pt seemed to benefit from increased awareness of current stressors and impact stress has on mental health. Recommended to continue IOP tx to continue use of healthy coping skills, manage anger responses, and prevent decompensation.
--- NOTE | 2022-08-26 11:10 | BH.SGPN.GN ---
Behaviors/Verbalizations/Mental Status: []Eye contact is good. Motor activity is appropriate. Appearance is casual. Speech is Appropriate. Mood is anxious and euthymic. Affect is congruent. Thoughts are linear and logical. No evidence of psychosis. Client Response/Progress/Benefit: []Pt was an active participant in group discussions and experiential activity. Attentive during psychoeducation on the 4 A's (Avoid, adapt, alter, accept) of coping with stress as well as strategies to identify stressors in which one has no control, little control, or a great deal of control over. Shared that he would benefit most from working on altering my approach in regards to coping with stress of his current living environment. Was able to identify the connection between the experimental activity and utilization of stress management skills. Benefited from increased awareness of stress management strategies. Will continue in IOP to maintain stability, prevent decompensation, and continue to improve consistent skill application. Narrative Note: []
--- NOTE | 2022-08-28 09:00 | BH.SGPN.GN ---
Behaviors/Verbalizations/Mental Status: [] Eye contact is good. Motor activity is appropriate. Appearance is casual. Speech is Appropriate. Mood is euthymic. Affect is congruent. Thoughts are linear and logical. No evidence of psychosis. Reviewed daily check in sheet and no reports of suicidal ideations or intent. Client Response/Progress/Benefit: [] Pt engaged in group session AEB sharing thoughts and feelings and listening attentively to others. Pt reported mental health positive as going to doctor and finding out he has tendonitis in his shoulder. Stated he will be starting physical therapy which he reported makes him feel hopeful he can start feeling better again and eventually be able to do more physically. Pt reported additional win as calling to schedule his own doctor appointment because he tends to procrastinate due to anxiety. Reported he has no current stressor. Seemed to benefit from support from peers. Will continue in IOP to continue use of healthy coping, build confidence, and prevent decompensation.
--- NOTE | 2022-08-28 10:10 | BH.SGPN.GN ---
Behaviors/Verbalizations/Mental Status: [] Eye contact is good. Motor activity is appropriate. Appearance is casual. Speech is Appropriate. Mood is anxious. Affect is congruent. Thoughts are linear and logical. No evidence of psychosis. Client Response/Progress/Benefit: [] Pt did not participated in group discussions however was attentive. Participated in and was engaged during experiential activity. Attentive during interactive discussion on what failure means to the group in which peers identified that failure is ... not meeting expectations, not having a desired outcome, and not succeeding in a task. Group was able to identify how fear of failure can lead to inaction, not trying, avoiding, giving up, lowering expectations, and remaining stuck. Attentive during interactive discussion on the role that FOF plays in mental wellness, depression, anxiety, and growth. Able to connect the experiential activity to FOF. Benefited from increased awareness of how the role that FOF plays in mental health and decision-making. Will continue in IOP to maintain safety, prevent decompensation, and to improve functioning. Narrative Note: []
--- NOTE | 2022-08-28 11:10 | BH.SGPN.GN ---
Behaviors/Verbalizations/Mental Status: []Client alert and oriented, casually dressed and groomed. Eye contact good. Motor activity appropriate. Speech within normal limits. Affect congruent, mood euthymic. Thoughts linear, logical, no signs of hallucinations or delusions. Client Response/Progress/Benefit: []Client responded well to session, engaged in the experiential activity and attentive throughout group processing. Client reported fear of failure has kept client from meeting new people and developing new relationships, as well as pursuing a career. Client completed fear of failure worksheet and was able to identify thoughts and behaviors that reinforce personal fear of failure including: past experiences, unrealistic expectations, and toxic relationships. Client participated in small group discussion regarding strategies to overcome fear of failure. Identified wanting to work on positive affirmations, using opposite action when doubting himself, and reaching out to healthy supports. Appeared to benefit from increased knowledge of strategies to combat fear of failure and gaining self-awareness. Client will continue IOP tx to increase self-confidence, improve throughout challenging, and to reduce irritability. Narrative Note: []
--- NOTE | 2022-08-29 09:00 | BH.COMM ---
Communication Note - Communication with Client Communication Note: cancelled IOP today
--- NOTE | 2022-09-01 09:00 | BH.COMM ---
Communication Note - Communication with Client Communication Note: cancelled IOP today
--- NOTE | 2022-09-02 09:00 | BH.SGPN.GN ---
Behaviors/Verbalizations/Mental Status: [] Eye contact is fair. Motor activity is appropriate. Appearance is casual. Speech is Appropriate. Mood is depressed. Affect is constricted. Thoughts are linear and logical. No evidence of psychosis. Reviewed daily check in sheet and no reports of suicidal ideations or intent. Client Response/Progress/Benefit: [] Pt engaged in group session AEB sharing thoughts and feelings and listening attentively to others. Pt reported mental health positive as having an appointment with his new psychiatrist this week. Identified additional mental health positive as using opposite action to make himself get out of his room despite feeling more depressed. Pt shared his brother's girlfriend moved back into their parents house, which has increased his anger and frustration. Pt agreed he needs to develop plan of what he can do to coexist with his brothers girlfriend so her behavior doesn't impact his mood so significantly. Seemed to benefit from suppor from peers. Will continue in IOP to increase consistent use of healthy coping, challenge distorted thoughts, and prevent decompensation. Narrative Note: []
--- NOTE | 2022-09-02 10:05 | BH.SGPN.GN ---
Behaviors/Verbalizations/Mental Status: []Eye contact is good. Motor activity is appropriate. Appearance is casual. Speech is Appropriate. Mood is dysthymic and anxious. Affect is congruent. Thoughts are linear and logical. No evidence of psychosis. Client Response/Progress/Benefit: []Pt did well to engage and was an active participant in group discussion. Attentive during psychoeducation on the CBT [place]onson (Thoughts, Behaviors, Emotions). Involved in group discussion on how thoughts and behaviors can contribute to maintaining adverse feelings, such as depression, anxiety, and irritability. Completed worksheet in which pt identified a thought that is keeping them stuck or is in obstacle to increased mental wellness. The thoughts that pt identified were ?something bad is going to happen?, ?I?m going to flip?, ?I?m so annoyed?, and ?I want to punch them?. Shared this maintains irritability cycle. Pt benefited from increased awareness of the basis of CBT therapy as well as specific thoughts that are impacting pt' progress. Will continue in IOP to improve mood stability and healthy communication when stressed, prevent decompensation, and to increase healthy coping skills. Narrative Note: []
--- NOTE | 2022-09-02 11:06 | BH.SGPN.GN ---
Behaviors/Verbalizations/Mental Status: []Pt alert and oriented, neatly dressed and groomed. Eye contact good. Motor activity appropriate. Speech within normal limits. Affect congruent, mood anxious and dysthymic. Thoughts linear, logical, no signs of hallucinations or delusions. Client Response/Progress/Benefit: []Pt responded well to session, contributing to discussion when prompted, and somewhat attentive throughout discussion. Pt identified a negative thought that has kept them stuck. Pt's thought was I can?t do this.? Pt reported when they think this way, pt gets disheartened and gives up which results in decreased motivation, apathy, and isolation. Pt worked to reframe the thought by finding more rational, realistic ways to look at the thoughts and then processed them within group setting. Pt reframed the thought to ?I can do it with the proper knowledge and training in what I?m working on?. Pt appeared to benefit from practicing challenging negative thinking. Pt will continue IOP tx to prevent decompensation, increase healthy conflict resolution and communication with supports, and maintain gains made. ? Narrative Note: []
--- NOTE | 2022-09-02 13:43 | BH.MDN ---
Multi-Disciplinary Note - Note 45-min Individual Time Started:: 12:05 Date: 09/02/22 Purpose of session/treatment goals addressed:: Reviewed current symptoms and progress in IOP. Focus of today's session was anger mgmt, boundary setting, and increasing social activities. Eye Contact:: Good Motor Activity:: Appropriate, Other - hx of tics Appearance:: Casual Speech:: Appropriate Mood:: Irritable, Depressed Affect:: Congruent Thoughts:: Linear, Logical, No evidence of hallucinations/delusions noted Staff Interventions:: psychoeducation on: - anger mgmt, boundary setting, CBT techniques Client Response:: Pt reports significant stressors this past week which have led to decompensation. According to pt his brother's gf moved back into the house (she was set to move out however this was cancelled) which is very upsetting to him as he feels that she is taking advantage of his family and is disrespectful. Due to brother's GF moving back into the house pt has also increased his isolation to avoid interacting with her. Spend most of the day yesterday in his room. Normalized his anger, identified coping skills, identified affirmations to use avoid catastrophizing, and he agreed to develop an plan to increase his activities outside the house. During last session we worked though the benefits and negatives to stepping away from [facility] and despite the negative far outweighing the positives pt decided last week to remain in the protestant however this was the worst thing I could have done for my mental health. According to pt since re-entering he has noted an increase in depression, anxiety, irritability, and overall lower self-confidence. Also reports increased tics. His family is concerned about the protestant taking advantage of him which lead to a verbal argument with his father over the weekend. Open to problem-solving setting boundaries and role-playing response to protestant members who reach out to him. Reviewed anger mgmt skills. He wants to volunteer and exercise more as he believes this will give him purpose, develop a routine, and also help with his sleep and agitation. Risks/Concerns:: denies any suicidal ideations, plan, or intent. No risks of concerns noted. Progress Toward Goals/Plan:: Regression noted since last session. Increased psychosocial stressors which are impacting mood which have led to decompensation. Increased depression, stress, anxiety, and irritability have led to isolation and also exacerbation of tics. Increased isolation and verbal arguments with parents. Pt has insight that returning to the [employer]uc[employer]ist [employer] is bad for me and negatively impacts his mental health. The pull to the protestant is their promise that if he prays and is devoted enough to God he will be successful in life and all his mental health struggles will disappear. They also make it seem like his struggles are due to him not being devoted enough leading to feelings of being a failure. Also states I just don't' share their beliefs either. Does well in session however struggles to maintain boundaries and make healthy decisions. We developed goals for him to increase his purpose (volunteering) and develop healthy routines (exercise) to reduce stress, depression, and irritability. Currently he spends his time either at home or protestant which are both currently stressful environments. Time Stopped:: 12:50
--- NOTE | 2022-09-03 09:00 | BH.SGPN.GN ---
Behaviors/Verbalizations/Mental Status: [] Eye contact is good. Motor activity is appropriate. Appearance is casual. Speech is Appropriate. Mood is depressed/irritable. Affect is congruent. Thoughts are linear and logical. No evidence of psychosis. Reviewed daily check in sheet and no reports of suicidal ideations or intent. Client Response/Progress/Benefit: [] Pt participated when prompted. Attentive. Daily symptom tracker notes 3/5 for irritability and 1/5 for depression. Emotion for today is calm. Shared recent psychosocial stressors which have increased depression, anxiety, and irritability. States I'm trying to use skills to help with what's going on. He shared psychosocial stressors and how they are impacted his mental health which includes mainly isolation and avoidance. He is concerned that current stressors will impact his relationship with certain support b/c I just feel disrespected. Group provided support, encouragement, and feedback which was beneficial. Will continue in IOP to maintain safety, stabilize mood, and improve functioning. Narrative Note: []
--- NOTE | 2022-09-03 11:15 | BH.SGPN.GN ---
Behaviors/Verbalizations/Mental Status: []Pt alert and oriented, casually dressed and groomed. Eye contact good. Motor activity appropriate. Speech within normal limits. Affect constricted, mood mellow. Thoughts linear, logical, no signs of hallucinations or delusions. Client Response/Progress/Benefit: [] Pt was an active participant in group discussion AEB providing contributions throughout group and listening attentively to others. Attentive during psychoeducation on mindfulness and ways to utilize mindfulness techniques to improve anxiety management. The group practiced deep breathing and the 5-senses during session. Engaged and attentive during group brainstorm of healthy anxiety reduction skills including thought challenging and behavioral changes. Appeared to benefit from practicing in the moment coping skills and increasing repertoire of anxiety management skills. Pt selected wanting to work on using ?thoughts are thoughts not facts? and delay, distract, decide to better manage anxiety. Progress noted in pt?s increased ability to combat distortions. Pt will continue IOP tx to improve mood stability, combat distortions, and increase self-confidence. Narrative Note: []
--- NOTE | 2022-09-03 12:44 | PCM.BH.PN_ITS ---
Progress Note Progress Note: History of Present Illness/Interim History: The patient is a 32-year-old male with a history of depression, anxiety and OCD who is seen in follow-up at the [facility] behavioral health IOP program. I last saw the patient 3 weeks ago and at that time his depression had improved and his OCD on the Auvelity. The patient feels that his depression worsens the more he attends his current adventism. He understands that the adventism environment does not seem to help his mental health symptoms and his family has also told him this. The patient is also stressed out by his brother's girlfriend being back in the house. The patient noticed that in recent days he has started having increasing tics from his Tourette's syndrome especially his neck tic and twitching and this has led to some soreness in his neck area. He feels the ability has made his Tourette's syndrome worse even though it has helped his depression and his OCD. He also also has noticed increased irritability lately since his trip tics worsened. Patient is not using any caffeine or any other drugs or alcohol. He has been making progress in the program and has been engaged in it. The patient denies passive thoughts of , suicidal ideation, homicidal ideation, hallucinations or delusions. Current Psychiatric Medications: [] Auvelity 45-105 mg p.o. twice daily (on this 5 weeks); fluphenazine 5 mg p.o. daily Mental Status Examination: [] Patient is a 32-year-old male who appears fit for stated age and is casually dressed and groomed with good hygiene. He is ambulatory with a normal gait. A neck tic and occasional twitching is noted during the interview. Eye contact is good and speech is normal rate and rhythm and fluent with no pressure. He is cooperative during the interview. Mood is approaching euthymia. Affect is full and normal. Thought process is goal- directed and organized. Thought content: There is no evidence of passive thoughts or active of suicidal ideation, homicidal ideation, plan for suicide, hallucinations or delusions. Reality testing is intact. Judgment is intact. Insight is good. Impulsivity is moderate. Diagnoses: [] 1. Major depressive disorder, recurrent, severe without psychosis (resolving) 2. OCD 3. Tourette's syndrome 4. Work and primary support issues Plan: [] The patient will continue the IOP program as the structure, support, education and group therapy will hopefully prevent worsening of the patient's symptoms. He felt safe during the interview and if it anytime he has does not feel safe he will let us know or go to the emergency room. The risk, options, possible complications and side effects of the medications were discussed with the patient and he understands accepts these. Discussed with the patient that the ability appears to be making his Tourette's syndrome worse so we will be needing to discontinue it. The patient agrees to discontinue the ability and agrees to start Effexor XR 37.5 mg p.o. daily for 2 days and then 75 mg p.o. daily. In addition we will increase his fluphenazine to 1-1/2 or 7.5 mg p.o. nightly for the next 2 weeks. When the ability gets out of his system and his Tourette's reason we decrease his back to normal he may be able to wean the fluphenazine back down to the 5 mg p.o. daily that he was on before. Patient will follow-up with his outpatient providers and I will see the patient in follow-up in 2 weeks.
--- NOTE | 2022-09-09 09:02 | BH.SGPN.GN ---
Behaviors/Verbalizations/Mental Status: []Eye contact good. Motor activity appropriate. Speech within normal limits. Affect congruent, mood anxious euthymic. Thoughts linear, logical, no signs of hallucinations or delusions. Reviewed client?s symptom tracker, no risk for suicidal ideation, plan, or intent as of 09/09/2022. Client Response/Progress/Benefit: []Client responded well to session, attentive and willing to process with group. Identified current mental health wins as making small changes in diet and exercise which resulted in an improved mood and energy, as well as losing 12 pounds. Additional win noted as scheduling physical therapy for his arm which will help to reduce his stress about this as well as aid in getting back to activities he enjoys. Current stressor identified as upcoming discharge and fear of maintaining the gains he has made. Shared plans to review maintenance strategies with his individual therapist to aid in preparing for discharge. Client appeared to benefit from group support and encouragement. Client gave positive feedback to other group members as they shared. Recommended continued IOP tx to continue to increase overall functioning, improve stress management, and promote mood stability. Narrative Note: []
--- NOTE | 2022-09-09 10:15 | BH.SGPN.GN ---
Behaviors/Verbalizations/Mental Status: []Pt alert and oriented, casually dressed and groomed. Eye contact fair. Motor activity appropriate. Speech within normal limits. Affect constricted, mood depressed. Thoughts linear, logical, no signs of hallucinations or delusions. Client Response/Progress/Benefit: []Pt was a passive participant during interactive group discussions, but was taking notes. Attentive during psychoeducation on the six types of boundaries. Pt listened attentively as peers contributed to interactive discussion on defining what a boundary is and group identified challenges to setting boundaries. Group discussed barriers of fear of hurting others, not feeling worth the boundary, and risk of losing relationships. Group reviewed the 6 types of boundaries. Benefited from increased awareness and insight on the importance/benefit to setting health boundaries. Will continue IOP tx to improve mood stability, further decrease depressive symptoms, and improve daily functioning. Narrative Note: []
--- NOTE | 2022-09-09 12:19 | BH.MDN ---
Multi-Disciplinary Note - Note 30-min Individual Time Started:: 11:15 Date: 09/09/22 Purpose of session/treatment goals addressed:: Reviewed current symptoms and progress in IOP. Used session to continue to address conflict resolution and assertive communication skills. Eye Contact:: Good Motor Activity:: Other - tics noted. Appearance:: Casual Speech:: Appropriate Mood:: Anxious Affect:: Congruent Thoughts:: Linear, Logical, No evidence of hallucinations/delusions noted Staff Interventions:: thought challenging, discharge planning, goal setting Client Response:: Pt reports improved functioning and decreased depression/anxiety/irritability since last week. His tics continued to worsen over the weekend however currently they appear to be lessening. He had an initial visit with group president and believes that the visit was very beneficial she talked to me for over an hour and I felt heard. ACCOUNTS PAYABLE PAYROLL COORDINATOR made medication changes and suggested an injection for his Tourette's medication which he believes would be helpful as he admits to sometimes forgetting to take his medications. 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 Walked 3 days in a row this week which he believes helps decrease irritability, slow down anxious thoughts, decrease ruminations/restlessness, and overall improves mental wellness. Insight on how exercise can also help with sleep, communication, isolation, motivation, energy, anger mgmt, and depression. He is also planning on volunteering at local [employer] I'm looking forward to it. Insight on how routines and maintaining schedules can also get me back into the work mode as he wants to pursue employment after IOP. Majority of the session was reviewing and role-playing assertive communication and conflict resolution skills as he sets boundaries with his yarsanism and manages interpersonal relationships. He has not been back to the [facility] yarsanism, however does admit that it has been challenging at times. He romanticizes the sermons and passion of the baptism, however verbalizes I know that place is bad for me. Risks/Concerns:: no risks of concerns noted. Denied suicidal ideations, plan, or intent. Progress Toward Goals/Plan:: Pt reports improved mood since last week as well as reduction in tics. New medication changes as outside group president stopped the Effexor and started him on Clomipramine. Increased activity and decreased isolation. Setting boundaries and utilized assertive communication with yarsanism. Optimistic that his symptoms will continue to improve. Will continue in IOP to prevent decompensation, stabilize mood, and increase healthy coping skills. Plan is to discharge the week of 09/22/22. Due to decompensation last week it was agreed that continue support and treatment would be beneficial. Time Stopped:: 11:45
--- NOTE | 2022-09-11 09:00 | BH.SGPN.GN ---
Behaviors/Verbalizations/Mental Status: [] Eye contact is good. Motor activity is appropriate. Appearance is casual. Speech is Appropriate. Mood is depressed. Affect is flat. Thoughts are linear and logical. No evidence of psychosis. Reviewed daily check in sheet and no reports of suicidal ideations or intent Client Response/Progress/Benefit: [] Pt participated when prompted. Attentive. Emotion for today is tired. Daily symptom tracker notes 03/27 for depression. Mental health win was self-care yesterday. Spent time with family swimming which was both relaxing and helpful. He continue to be active and increasing daily routines to help with mood. Also reports that he is using skills when overwhelmed. States that he is better able to identify when his emotions are at low levels and then incorporate skills rather than waiting for his emotions to get overwhelming. Being more proactive than reactive. Progress noted per pt report. Benefited from group support, encouragment, and feedback. Will continue in IOP to prevent decompensation, increase healthy coping, and to improve functioning. Narrative Note: []
--- NOTE | 2022-09-11 10:15 | BH.SGPN.GN ---
Behaviors/Verbalizations/Mental Status: []Eye contact is good. Motor activity is appropriate. Appearance is casual. Speech is Appropriate. Mood is euthymic. Affect is congruent. Thoughts are linear and logical. No evidence of psychosis. Client Response/Progress/Benefit: [] Pt was a passive participant in group discussions. Attentive during psychoeducation on the 4 communication styles and the obstacles to effective communication. Contributed during interactive discussion on the benefits of communicating effectively which included; having one's needs met, helping others get their needs met, and building connection with others. Worked well in small group in which pt and peers identified the benefits and disadvantages to the different communication styles. Pt reports belief they use mostly assertive communication ?in public? but aggressive communication at home. Benefited from increased understanding of communication styles and how these can impact effective communication. Will continue in IOP to promote mood stability, monitor medication changes, and improve daily functioning. ? Narrative Note: []
--- NOTE | 2022-09-11 11:15 | BH.SGPN.GN ---
Behaviors/Verbalizations/Mental Status: []Client alert and oriented, casually dressed and groomed. Eye contact good. Motor activity appropriate. Speech within normal limits. Affect congruent, mood euthymic. Thoughts linear, logical, no signs of hallucinations or delusions Client Response/Progress/Benefit: []Client responded well to session AEB client listening attentively to others and providing input during group discussion. Client did well in the activity to be assertive and ask for feedback. Recognizes if group wasn't assertive in activity, they wouldn't have been successful. Discussed with group communication strategies used to make activity successful. Attentive during psychoeducation on interpersonal DBT skill KATYA. Identified wanting to use more assertive communication when interacting with family at home by taking a moment to calm himself before responding. Client seemed to benefit from increasing awareness of healthy strategies to improve communication. Will continue IOP tx to improve daily functioning, increase mood stability, and prevent decompensation. Narrative Note: []
--- NOTE | 2022-09-17 11:29 | BH.COMM ---
Communication Note Communication with Client Communication Note: No call or show for IOP today. Left VM.
--- NOTE | 2022-09-22 11:49 | BH.COMM ---
Communication Note Communication with Client Communication Note: Pt did not show or call for the entire week. LM with patient yesterday and this AM. Pt has had 3 no shows. If patient does not respond over the weekend will discharge from [facility] level of care.
--- NOTE | 2022-09-22 12:00 | BH.DS ---
Discharge Summary Demographics Discharge Date: 09/22/22 Presenting Problems at Admission:: Pt is a 32 y/o male with hx of MDD, OCD, and Tourette's Syndrome. No hx of psychiatric admissions. Pt presented to [facility] ER on 07/16/22 verbalizing suicidal ideations. Pt reports daily suicidal thoughts for the past month. According to pt his thoughts are primarily passive when overwhelmed and angry, however he has verbalized to family I should just shoot myself. No access to guns. I would never do anything I just want them (Family) to feel bad for how they treat me at times. Protective factors are his niece, nephew, and holiness. No hx of suicide attempts. Psychosocial stressors include finances, inability to maintain employment, and current housing situation (lives with parents, brother, and brother's GF). Primary obstacle to employment according to pt is his mental health (Anxiety, panic, depression, and Tourette's). Tics which can worsen when overwhelmed or stressed and impact driving. Ruminates extensively which impact sleep. Feels like a failure. Denies HI or psychosis. Denies substance abuse. Not currently linked with counseling and believes that his current medication are not helpful. Family hx of depression (mother, sister, maternal GMA). Discharge Diagnoses:: Diagnosis #1:: MDD F33.2 Diagnosis #2:: OCD Diagnosis #3:: Tourettes Reason for Discharge:: Inconsistent attendance. Pt did not show for IOP for any sessions last week. Staff reached out numerous times however pt never responded. Per policy patient will be discharged due to 3 no shows. Treatment Progress During Treatment & Response: Pt's progress had been sporadic while in IOP. Initially pt responded well with consistent attendance and engagement in treatment. At the 3 week ryanne pt's outcome scores indicated an overall 75% reduction in symptoms since his admission. Outcomes indicated a 75% reduction in the depression domain, 50% reduction in the anger domain, 33% reduction in the anxiety domain, and he denied any suicidal thoughts. DSM-5 Cross-Cutting scales also reported improved sleep, a significant reduction in intrusive thoughts/urges, and increased purpose. Pt was compliant with medications and noted improvement on new medication Avuelity. Around mid-August pt reported increased Tourette's tics which led to discontinuing his Aveulity and starting him on Effexor. The tics subsided and after meeting with outside research engineer marine equipment his medications were changed once again. It appeared as if his mood was stabilizing however he failed to return to IOP and spoke with program medical office receptionist on 09/15/22 stating increased depression and wanting to go back on Effexor. Pt stated that he was going to reach out to outside research engineer [employer]. Pt was also scheduled with program psychiatrist on 09/17/22. Pt never returned to IOP and no showed for the remainder of the week. Issues Still to be Addressed:: Depression, fleeting SI, anger, anxiety, panic, and difficulty functioning due to mental health. Discharge Recommendations/Instructions:: Recommended to continue with research engineer marine equipment at [facility] Pt reported to staff on 09/15/22 that he was going to reach out to her that day to discuss medication side effects. Pt reported he is set up for intake assessment at [facility] Discharge Handout
== END 2022-09-19 23:59 ==
LOC: BHIOP 07:41
PROVIDERS: PCP Student in an Organized Health Care Education/Training Program; Referring Provider Psychiatry & Neurology Psychiatry; Visit Provider Psychiatry & Neurology Psychiatry
DX: F33.2 Major depressive disorder, recurrent severe without psychotic features (principal); F60.5 Obsessive-compulsive personality disorder; F95.2 Tourette's disorder
CPT/HCPCS: 99214; H2012; H2020; S9480; 90832; 90834; 90837

== ENCOUNTER 2022-09-20 18:40 | Emergency (ER) | payer MEDICAID, SELFPAY ==
[2022-09-20 18:41] VITALS: BP 145/99; PULSE 112; RESP 20; TEMP 36.7; O2SAT 100; BMI 25.8
[2022-09-20 19:09] LABS: Absolute Lymphocyte Count 1.37 X10^3/uL (0.83-4.51); Absolute Neutrophil Count 4.4 X10^3/uL (2.0-7.7); Basophil# 0.05 X10^3/uL; Basophil% 0.8 % (0-1); Eosinophil# 0.13 X10^3/uL; Hemoglobin 15.9 g/dL (13.0-16.5); Lymphocyte # 1.37 X10^3/ul (0.83-4.51); Lymphocyte % 21.5 % (19-41); Mean Corp Hgb Conc 36.1 g/dL (32-36); Mean Corpuscular Hgb 29.4 pg (27.0-32.0); Mean Corpuscular Volume 81.5 fL (80-94); Mean Platelet Vol. 10.6 fl (6.2-12.0); Monocyte% 6.3 % (0-10); NRBC Flagged by Analyzer 0 % (0-5); Neutrophil % 69.2 % (47-70); Platelet Count 219 K/mm3 (150-450); RBC Distribution Width SD 35.5 fl (35.1-43.9); White Blood Count 6.4 K/mm3 (4.4-11.0)
[2022-09-20 19:23] LABS: Anion Gap 4 (5-15); BUN 12 mg/dL (7-18); BUN/Creat Ratio 11.1 RATIO (10-20); Calcium,Total 9.5 mg/dL (8.5-10.1); Chloride 105 mmol/L (98-107); Creatinine, Serum 1.08 mg/dL (0.70-1.30); EST Glomerular Filtration Rate 85 mL/min (>60); Est Glom Filt Rate - Afr Amer 103 mL/min (>60); Estimated Creatinine Clearance 116.28 ml/min; Glucose 102 mg/dL (74-106); Potassium 3.7 mmol/L (3.5-5.1); Sodium Level 138 mmol/L (136-145)
[2022-09-20 19:41] VITALS: RESP 16
[2022-09-20 19:56] LABS: Amphetamine Urine VISTA NEGATIVE (<1000 ng/mL); Barbiturate Urine VISTA NEGATIVE (< 200 ng/mL); Benzodiazepine Urine VISTA NEGATIVE (< 200 ng/mL); Cocaine Urine VISTA NEGATIVE (< 300 ng/mL); Ecstacy Urine VISTA NEGATIVE (< 500 ng/mL); Methadone Urine VISTA NEGATIVE (< 300 ng/mL); PCP Urine VISTA NEGATIVE (< 25 ng/mL); THC Urine VISTA NEGATIVE (< 50 ng/mL); Vista UDS pH Range 6
[2022-09-20 19:56] LABS: Alcohol, Blood (Medical)-Serum < 3.0 mg/dL
--- NOTE | 2022-09-20 19:58 | NURSING ---
CALLED CRISIS AT 1957
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
[2022-09-20 20:41] VITALS: RESP 16
[2022-09-20 21:41] VITALS: RESP 16
--- NOTE | 2022-09-20 22:38 | NURSING ---
PENDING [facility]
--- NOTE | 2022-09-21 05:00 | NURSING ---
RAYMOND CALLED AND SAID [facility]S ER WAS NOW FULL AND THEY NEEDED TO HOLD OFF ON ADMISSION UNTIL THEY SEE THEIR PATIENTS. KALINA STATED SHE REFERRED PATIENT TO [facility]
[2022-09-21 06:18] VITALS: BP 142/81; PULSE 79; RESP 17; O2SAT 100
--- NOTE | 2022-09-21 07:00 | NURSING ---
accepted at [facility] [phone]
--- NOTE | 2022-09-21 07:14 | NURSING ---
CALLED [facility], ETA IS 90 MIN
--- NOTE | 2022-09-21 07:41 | ED.RN ---
Meal tray delivered
[2022-09-21 08:37] VITALS: BP 136/84; PULSE 84; RESP 16; TEMP 36.6; O2SAT 99
--- NOTE | 2022-09-21 09:14 | ED.RN ---
Called report to Josselyn at [place].
== END 2022-09-21 08:40 ==
PROVIDERS: Emergency Provider Emergency Medicine; PCP Student in an Organized Health Care Education/Training Program; Visit Provider Emergency Medicine
DX: R45.851 Suicidal ideations (principal); R45.850 Homicidal ideations; F32.A Depression, unspecified; F42.9 Obsessive-compulsive disorder, unspecified; F95.2 Tourette's disorder; F43.10 Post-traumatic stress disorder, unspecified
CPT/HCPCS: 80048; 80307; 82077; 85025; 87811; 99281

== ENCOUNTER 2022-10-19 03:49 | Emergency (ER) | payer MEDICAID, SELFPAY ==
[2022-10-19 03:51] VITALS: BP 167/97; PULSE 69; RESP 16; TEMP 36.2; O2SAT 100; BMI 26.9
--- NOTE | 2022-10-19 04:05 | EKG12_ITS ---
Test Reason : SYNCOPE Blood Pressure : / mmHG Vent. Rate : 059 BPM Atrial Rate : 059 BPM P-R Int : 162 ms QRS Dur : 082 ms QT Int : 408 ms P-R-T Axes : 065 075 053 degrees QTc Int : 403 ms Sinus bradycardia with sinus arrhythmia Otherwise normal ECG Confirmed by MISA ALVES, DANA ([id number]), assistant film editor BRISA GRIDER ([id number]) on 10/23/2022 8:34:54 AM Referred By: SYLVIA Confirmed By:JESSE BYNUM MD
--- NOTE | 2022-10-19 04:06 | EDS_ITS ---
HPI History of Present Illness Chief Complaint: Syncope Informant: patient Narrative Narrative: Patient presents after syncopal episode. Patient states this is the second 1 of these he has had in about 6 months. He states he had gone to the restroom. He then got lightheaded. He fell to the ground. He states he feels perfectly fine now. He woke up within a few seconds he believes. He denies any injury. He states he could have hit something or even hit his head but he has no symptoms. He never had chest pain or palpitations. He is not short of breath. No numbness tingling or weakness. Only new or medicine is Trileptal over the last month. But he felt fine before and after this event. Further questioning finds out that both of these events occurred in his bathroom. Both of them occurred just after he urinated while standing up. I believe this likely represents micturition syncope. [facility] Medical History Major depressive disorder, recurrent severe without psychotic features Murmur OCD (obsessive compulsive disorder) Physical exam, pre-employment PTSD (post-traumatic stress disorder) Tourettes syndrome Home Medications clonazepam 0.5 mg tablet (Klonopin) 0.5 mg PO DAILY PRN Anxiety 07/13/21 [History Last Taken Unknown] fluphenazine HCl 5 mg tablet 5 mg PO DAILY 30 days #30 tabs 08/13/22 [Rx Last Taken Unknown] fluoxetine 20 mg capsule 20 mg PO QHS 10/19/22 [History Last Taken Unknown] oxcarbazepine 300 mg tablet 300 mg PO BID 10/19/22 [History Last Taken Unknown] Allergy/AdvReac Type Severity Reaction Status Date / Time amoxicillin Allergy Hives Verified 10/19/22 03:49 Surgical History History of hernia repair History of tonsillectomy and adenoidectomy Social History Smoking Status: Never smoker ROS ROS ED ROS Narrative A complete review of systems was performed and is negative except as documented in the history of present illness. Some specific details below. Constitutional: No recent fevers or chills. He feels fine before and after this event. EYE: No discharge, visual complaints, or pain. ENT: No difficulty swallowing. No swelling. No pain. No reflux symptoms. CV: He never felt palpitations or chest pain irregular or missed beats. Respiratory: No coughing or shortness of breath. GI: No abdominal pain. No nausea vomiting diarrhea. No blood in stool. : No frequency dysuria or hematuria. Musculoskeletal: No recent trauma-he denies any injury. No pains. No swelling. Skin: No rash. Nondiaphoretic. Neuro: No weakness or numbness. See history of present illness. Endocrine: No polyuria or polydipsia. EXAM Physical Exam Narrative Exam Narrative: CONSTITUTIONAL: Patient is nontoxic in appearance. The patient looks comfortable. Work of breathing looks normal. He looks very relaxed and comfortable. HEENT: No notable trauma. I see no bruising abrasions lacerations or areas of tenderness. Mucous membranes moist. No sinus tenderness. No indication of pain with swallowing. EYES: No conjunctival injection. No proptosis. NECK:No JVD. No stridor. CARDIOVASCULAR: Regular rate. Regular rhythm. No notable murmur. No JVD. On the monitor he appears to have a normal sinus rhythm with a rate of 65-70 and no ectopy. I see no pauses. RESPIRATORY: No respiratory distress. Breathing is unlabored. No wheezes. No rhonchi. No rales. No pain with a deep breath. No chest wall tenderness. Saturations are normal at 100% on room air showing no hypoxia. GASTROINTESTINAL: Not distended. Bowel sounds are normal. No tenderness. No guarding. No rebound. No palpable mass. No bruit is heard. GENITOURINARY: No tenderness over the bladder. No CVA tenderness. MUSCULOSKELETAL: Atraumatic. No peripheral edema. No cord. No tenderness along the deep venous system. No asymmetry. No distended veins. NEUROLOGICAL: Patient is alert and appropriate. No focal deficit noted. SKIN: No noted rashes. No diaphoresis. PSYCHIATRIC: Patient is calm. Mood is appropriate. Const Vital Signs: 10/19/22 03:51 10/19/22 03:51 Temperature 97.1 F L Temperature Source Temporal Pulse Rate 69 Respiratory Rate 16 Respiratory Effort Normal Respiratory Pattern Normal Blood Pressure 167/97 H Blood Pressure Mean 120 Pulse Ox 100 MDM MDM MDM Narrative Medical decision making narrative: Patient CBC shows no acute process. Patient's electrolytes show minimal rise in the BUN and creatinine but no marked abnormalities. I do not think this mild degree of dehydration causes the symptoms. I think this patient has micturition syncope. I think this is best managed with knowledge. If he urinates especially after not urinating a while or just getting up from sleeping he should be careful and hold onto something or just sit down and urinate. If this becomes a recurrent problem he may need further treatment. He still has no complaints of injury. I do not think imaging is needed. Lab Data Attestation: I reviewed the patient's lab results. Labs: Laboratory Results - last 24 hr 10/19/22 04:20 WBC 7.2 RBC 4.95 Hgb 14.3 Hct 42.1 MCV 85.1 MCH 28.9 MCHC 34.0 RDW Std Deviation 38.5 RDW Coeff of [place] 12.6 Plt Count 179 MPV 11.1 Immature Gran % (Auto) 0.300 Neut % (Auto) 52.1 Lymph % (Auto) 38.0 [place] % (Auto) 6.6 Eos % (Auto) 2.2 Baso % (Auto) 0.8 Absolute Neuts (auto) 3.8 Absolute Lymphs (auto) 2.74 Nucleated RBC % 0 EKG Initial EKG: Comments: My independent interpretation of the patient's EKG done for history of syncope shows a sinus rhythm with sinus arrhythmia and mild bradycardia with a rate of 59. No ventricular ectopy. No acute ST elevation or depression consistent with infarct or ischemia. There are some diffuse nonspecific changes. MD interval, QRS duration and QTc are normal. It is similar to prior EKG of 14 January 2022. Discharge Plan Triage Chief Complaint: Syncope ED Provider: Lucio De Paz Dx/Rx/DC Orders Clinical Impression: Micturition syncope Instructions: Understanding Vasovagal Syncope Prescriptions: No Action clonazepam [Klonopin] 0.5 mg tablet 0.5 mg PO DAILY PRN (Reason: Anxiety) fluphenazine HCl 5 mg tablet 5 mg PO DAILY 30 Days Qty: 30 3RF fluoxetine 20 mg capsule 20 mg PO QHS Patient Comments: take 1 capsule by mouth once daily oxcarbazepine 300 mg tablet 300 mg PO BID Patient Comments: take 1 tablet by mouth twice a day Primary Care Provider: David Irving Referrals: David Irving, DO [Primary Care Provider] - 3-5 Days Disposition Disposition: Home, Self Care
[2022-10-19 04:33] LABS: Absolute Lymphocyte Count 2.74 X10^3/uL (0.83-4.51); Absolute Neutrophil Count 3.8 X10^3/uL (2.0-7.7); Basophil# 0.06 X10^3/uL; Basophil% 0.8 % (0-1); Eosinophil# 0.16 X10^3/uL; Eosinophils% 2.2 % (0-5); Hematocrit 42.1 % (40-54); Hemoglobin 14.3 g/dL (13.0-16.5); Lymphocyte # 2.74 X10^3/ul (0.83-4.51); Mean Corpuscular Hgb 28.9 pg (27.0-32.0); Mean Corpuscular Volume 85.1 fL (80-94); Mean Platelet Vol. 11.1 fl (6.2-12.0); Monocyte# 0.48 X10^3/uL; Monocyte% 6.6 % (0-10); NRBC Flagged by Analyzer 0 % (0-5); Neutrophil # 3.76 X10^3/uL (2.7-7.7); Neutrophil % 52.1 % (47-70); Platelet Count 179 K/mm3 (150-450); RBC Distribution Width CV 12.6 % (11.6-14.6); RBC Distribution Width SD 38.5 fl (35.1-43.9); Red Blood Count 4.95 M/mm3 (4.6-6.2); White Blood Count 7.2 K/mm3 (4.4-11.0)
[2022-10-19 04:48] LABS: Anion Gap 2 (5-15); BUN 21 mg/dL (7-18); BUN/Creat Ratio 18.8 RATIO (10-20); Calcium,Total 8.9 mg/dL (8.5-10.1); Chloride 105 mmol/L (98-107); Creatinine, Serum 1.12 mg/dL (0.70-1.30); EST Glomerular Filtration Rate 82 mL/min (>60); Est Glom Filt Rate - Afr Amer 99 mL/min (>60); Estimated Creatinine Clearance 112.13 ml/min; Glucose 92 mg/dL (74-106); Potassium 3.7 mmol/L (3.5-5.1); Sodium Level 138 mmol/L (136-145)
[2022-10-19 04:58] VITALS: BP 140/72
== END 2022-10-19 04:58 | disposition home or self-care (01) ==
PROVIDERS: Emergency Provider Emergency Medicine; PCP Student in an Organized Health Care Education/Training Program; Visit Provider Emergency Medicine
DX: R55 Syncope and collapse (principal)
CPT/HCPCS: 80048; 85025; 93005; 99283

== ENCOUNTER 2023-06-26 14:21 | Emergency (ER) | payer MEDICAID, SELFPAY ==
[2023-06-26 14:21] VITALS: BP 146/94; PULSE 120; RESP 16; TEMP 36.6; O2SAT 99; BMI 43.7
--- NOTE | 2023-06-26 14:32 | EX.ED.DYSGE1 ---
HPI History of Present Illness Chief Complaint: Back [facility] Medical History Major depressive disorder, recurrent severe without psychotic features Murmur OCD (obsessive compulsive disorder) Physical exam, pre-employment PTSD (post-traumatic stress disorder) Tourettes syndrome Home Medications clonazepam 0.5 mg tablet (Klonopin) 0.5 mg PO DAILY PRN Anxiety 07/13/21 [History Last Taken Unknown] fluoxetine 20 mg capsule 40 mg PO QHS 10/19/22 [History Last Taken Unknown] oxcarbazepine 300 mg tablet 150 mg PO QHS 10/19/22 [History Last Taken Unknown] cyclobenzaprine 10 mg tablet 10 mg PO TID PRN PRN muscle spasm 06/26/23 [History Last Taken Unknown] fluphenazine HCl 5 mg tablet 10 mg PO DAILY 06/26/23 [History Last Taken Unknown] naproxen 500 mg tablet 500 mg PO BID 06/26/23 [History Last Taken Unknown] Allergy/AdvReac Type Severity Reaction Status Date / Time amoxicillin Allergy Hives Verified 06/26/23 14:22 Surgical History History of hernia repair History of tonsillectomy and adenoidectomy Social History Smoking Status: Never smoker EXAM Physical Exam Const Vital Signs: 06/26/23 14:21 Temperature 98 F Temperature Source Temporal Pulse Rate 120 H Respiratory Rate 16 Blood Pressure 146/94 H Blood Pressure Mean 111 Pulse Ox 99 Oxygen Delivery Method Room Air MDM MDM MDM Narrative Medical decision making narrative: HISTORY OF PRESENT ILLNESS: 33-year-old male presents with back pain. Presents with neck/spine pain. Patient further states he underwent a dry needling procedure 2 weeks ago. Notes the procedure took place in his right trapezius muscle. He states since that time he had right-sided neck pain. He states the physical therapy is to perform procedure told me he did not get better within 4 days after procedure of the he should be concerned. Patient denies any difficulty swallowing, talking, slurred speech, loss of vision, facial drooping, shortness of breath, chest pain, focal numbness weakness or loss sensation in the upper extremities. Patient denies any saddle anesthesia, urinary tension, bowel or bladder incontinence, lower extremity weakness, fever or IV drug use, no recent spinal manipulation or surgery, no recent urinary catheterization. REVIEW OF SYSTEMS: All other systems reviewed and are negative except as noted in the history of present illness. At least 10 review of systems reviewed and are negative except as noted in history of present illness. PHYSICAL EXAM: Nursing triage notes reviewed, Vital signs reviewed Constitutional: please see mdm HENT: MMM Eyes: Pupils equal round and reactive to light, Extraocular muscles intact Neck: No stridor, no JVD, full neck ROM, TTP over right trapezius, no midline step-offs deformities, no signs of tracheal deviation, no crepitus to neck Lungs: Clear to auscultation, No wheezing or rales. No increased work of breathing, no conversational dyspnea, no accessory muscle use, no nasal flaring. No respiratory distress noted Heart: Regular rate and rhythm, No murmurs, No rubs and No gallops, 2+ distal pulses (radial, femoral, posterior tibial) in all extremities Abdomen: Soft, there is no tenderness, rigidity, rebound or guarding, no obvious peritoneal signs, no palpable pulsatile abdominal masses, no auscultated abdominal bruit : No CVAT Extremities: No edema Back: No midline step-offs or deformities Neuro: Intact sensation L1-S1 dermatomal distributions. Intact 5/5 strength in hip flexion (T12-L3). Knee extension (L2-L4). Ankle dorsiflexion (L4-L5). Ankle plantar flexion (S1). Great toe extension (L5). 2+ patellar and Achilles DTRs. Intact 5/5 strength with ok sign (median), intact finger abduction (ulnar) intact wrist extension (radial n). Intact sensation in the radial, ulnar, and median nerve distributions. Skin: No rash or lesions noted MEDICAL DECISION MAKING: Chief Complaint: Back pain External records reviewed: No recent advanced imaging of the spine Factors affecting care: OCD, PTSD Social determinants of health: No IV drug use History obtained from others: none Consults: none [facility] Narrative: Patient was initially tachycardic otherwise hemodynamically stable afebrile nontoxic-appearing. Exam without signs of focal neurologic deficits. There is no clinical evidence of airway compromise, esophageal pathology, cervical spine bony abnormality or spinal disruption. Likely musculoskeletal in origin. Patient is appropriate for discharge home. He was given Decadron here for anti-inflammatory effect. He is essentially on maximal medical therapy at home with topical pain relieving cream, Tylenol, ibuprofen and muscle relaxers. He is encouraged to continue these and to follow-up physical therapy at the next billable appointment. I considered the following differential diagnosis: Musculoskeletal back pain, space-occupying lesion of the spinal (epidural abscess, epidural hematoma), cauda equina, conus medullaris, fracture dislocation, I completed a structured, evidence-based clinical evaluation to screen for acute non-traumatic spinal emergencies. The patient has a normal detailed neurologic exam and red flag historical factors were negative. The evidence indicates that the patient is very low risk for an acute spinal emergency and this is consistent with my clinical intuition. The risk of further workup is higher than the likelihood of the patient having a spinal epidural abscess or other dangerous emergency spinal condition. It is, therefore, in the patient?s best interest not to do additional emergent testing at this time. Shared Decision-Making I have discussed with the patient my clinical impression and the result of an evidence-based clinical evaluation to screen for spinal epidural abscess and other spinal emergencies, as well as the risk of further testing and hospitalization. The evidence shows that the risk for an acute spinal emergency is less than 1%. Although the risk of an acute spinal emergency has not been completely eliminated, the risks of further testing likely exceed any potential benefit, and the patient agrees with not pursuing further emergent evaluation for causes of back pain at this time. The patient and/or family, caregivers express understanding. The patient and/or family, caregivers agrees with the plan. Total critical care time today provided was at least 0 minutes. This excludes separately billable procedures. Critical care time (if documented) is secondary to the patient having high probability of clinically significant/life threatening deterioration in the patient's condition which required my urgent intervention. Impression: 1. Cervical spine strain Disposition: Discharge home Abraham Garcia DO Discharge Plan Triage Chief Complaint: Back ED Provider: Abraham Garcia Dx/Rx/DC Orders Clinical Impression: Repetitive strain injury of cervical spine Instructions: ED Neck Sprain or Strain Prescriptions: No Action clonazepam [Klonopin] 0.5 mg tablet 0.5 mg PO DAILY PRN (Reason: Anxiety) fluoxetine 20 mg capsule 40 mg PO QHS Patient Comments: take 1 capsule by mouth once daily oxcarbazepine 300 mg tablet 150 mg PO QHS Patient Comments: take 1 tablet by mouth twice a day cyclobenzaprine 10 mg tablet 10 mg PO TID PRN PRN (Reason: muscle spasm) fluphenazine HCl 5 mg tablet 10 mg PO DAILY naproxen 500 mg tablet 500 mg PO BID Primary Care Provider: David Irving Referrals: David Irving, [Primary Care Provider] - Activity Restrictions/Additional Instructions: Thank you for trusting us with your care today! Please take Tylenol (2 pills, 650 mg), ibuprofen (2 pills, 400 mg) every 6 hours as needed for pain and fever control. Please go to local pharmacy or drugstore and obtain Salonpas lidocaine patches apply these as directed. Please return to the emergency department if your symptoms change or worsen. Specifically develop trouble talking, swallowing, slurred speech, facial drooping, difficulty coordinating upper extremity movements, if you lose consciousness, you develop drooling, shortness of breath or if your symptoms change or worsen in any way Please follow with your primary care physician for further outpatient evaluation and management. Please follow-up with physical therapy as well for ongoing treatment. Disposition Disposition: Home, Self Care
[2023-06-26] MEDS: dexAMETHasone 4 MG/ML Vial IM (15:28)
[2023-06-26 15:54] VITALS: BP 140/95; PULSE 110; RESP 16; TEMP 36.6; O2SAT 98
== END 2023-06-26 15:56 | disposition home or self-care (01) ==
PROVIDERS: Emergency Provider Emergency Medicine; PCP Student in an Organized Health Care Education/Training Program; Visit Provider Emergency Medicine
DX: S16.1XXA Strain of muscle, fascia and tendon at neck level, initial encounter (principal); F33.2 Major depressive disorder, recurrent severe without psychotic features; F42.9 Obsessive-compulsive disorder, unspecified; F43.10 Post-traumatic stress disorder, unspecified; Z79.899 Other long term (current) drug therapy; X58.XXXA Exposure to other specified factors, initial encounter
CPT/HCPCS: 96372; 99282

== ENCOUNTER 2023-09-28 18:55 | Emergency (ER) | payer MEDICAID, SELFPAY ==
[2023-09-28 18:56] VITALS: BP 167/88; PULSE 89; RESP 16; TEMP 36.3; O2SAT 97; BMI 25.7
--- NOTE | 2023-09-28 19:52 | EX.ED.GUMALE ---
HPI History of Present Illness Chief Complaint: Complaint Informant: patient Pain Onset: Yesterday Context: Gradual Onset Timing: Continuous Worsened by: Urination Relieved by: Nothing Narrative Narrative: Patient presents with dysuria and hematuria that began yesterday. Patient is gradually gotten worse. Patient states he has burning whenever he urinates. Patient does admit to some bloody and clear urethral discharge. Patient states he felt some pressure in his urethra and when he pushed on it there was some blood that came out. Patient states it is worse with urination. Patient is nothing makes it better. Patient states he is sexually active. Patient states he only has 1 partner. Patient denies any fevers or chills. Patient denies any nausea or vomiting. [facility] Medical History PTSD (post-traumatic stress disorder) OCD (obsessive compulsive disorder) Major depressive disorder, recurrent severe without psychotic features Tourettes syndrome Murmur Physical exam, pre-employment Home Medications ?Medication ?Instructions ?Recorded ?Last Taken ?Type clonazepam 0.5 mg tablet (Klonopin) 0.5 mg PO DAILY PRN Anxiety 07/13/21 Unknown History fluoxetine 20 mg capsule 40 mg PO QHS 10/19/22 Unknown History oxcarbazepine 300 mg tablet 150 mg PO QHS 10/19/22 Unknown History cyclobenzaprine 10 mg tablet 10 mg PO TID PRN PRN muscle spasm 06/26/23 Unknown History fluphenazine HCl 5 mg tablet 10 mg PO DAILY 06/26/23 Unknown History naproxen 500 mg tablet 500 mg PO BID 06/26/23 Unknown History doxycycline monohydrate 100 mg 100 mg PO BID #14 CAPSULES 09/28/23 Unknown Rx capsule Allergy/AdvReac Type Severity Reaction Status Date / Time amoxicillin Allergy Hives Verified 09/28/23 18:58 prednisone AdvReac Mild PALPITATION Verified 09/28/23 18:58 S Surgical History History of tonsillectomy and adenoidectomy History of hernia repair Social History Smoking Status: Never smoker ROS ROS ED Constitutional Constitutional ED: Denies chills or fever(s) Eyes Eyes: Denies blurry vision or change in vision ENT ENT ED: Denies rhinorrhea or sore throat Cardiovascular Cardiovascular: Reports chest pain; Denies palpitations Respiratory/Chest Respiratory/Chest: Denies cough or dyspnea Gastrointestinal Gastrointestinal: Denies nausea or vomiting Genitourinary Genitourinary ED: Reports dysuria and hematuria Musculoskeletal Musculoskeletal: Denies back pain or neck pain Integumentary Denies abscess or rash Neurologic Neurologic: Denies headache(s) or weakness Allergic/Immunologic Allergic/Immunologic ED: Denies mouth swelling or urticaria EXAM Physical Exam Const Vital Signs: 09/28/23 18:56 Temperature 97.3 F L Temperature Source Temporal Pulse Rate 89 Respiratory Rate 16 Blood Pressure 167/88 H Blood Pressure Mean 114 Pulse Ox 97 Oxygen Delivery Method Room Air Positive well nourished and well developed General Appearance ED: well developed and NAD HEENT Reports moist mucous membranes normocephalic Neck supple and no JVD Resp normal respiratory effort and clear to auscultation bilaterally Cardio regular rate and regular rhythm GI non-tender and non-distended Palpation: soft Narrative: There is a small amount of clear urethral discharge noted on exam. There are no external penile lesions. There is no inguinal hernia. There is no testicular tenderness or masses noted. Neuro oriented x3, CN's II-XII intact bilaterally, moves all extremities, no focal motor deficits and no sensory deficits noted Sensorium / Orientation: alert Motor Exam: strength 5/5 throughout Psych mental status grossly normal MDM MDM MDM Narrative Medical decision making narrative: Differential diagnosis includes urinary tract infection and sexually transmitted disease. Urinalysis will be obtained to assess for urinary tract infection. GC and Chlamydia PCR will be obtained to assess for sexually transmitted disease. Lab Data Attestation: I reviewed the patient's lab results. Lab results narrative: Urinalysis was reviewed. There is no evidence of urinary tract infection or hematuria. Labs: Laboratory Results - last 24 hr 09/28/23 20:02 Urine Color Yellow Urine Clarity Clear Urine pH 7.0 Ur Specific [place] 1.010 Urine Protein Negative Urine Glucose (UA) Normal Urine Ketones Negative Urine Occult Blood Negative Urine Nitrite Negative Urine Bilirubin Negative Urine Urobilinogen Normal Ur Leukocyte Esterase Negative Urine RBC 0 SEEN Urine WBC 0 SEEN Ur Squamous Epith Cells 0 SEEN Urine Bacteria 0 SEEN Urine Mucus 0 SEEN Treatment and Re-Evaluation Narrative: Patient was advised of his findings. Patient was given an injection of Rocephin and a prescription for doxycycline. Patient was given his first dose of doxycycline here. Patient was also given a dose of metronidazole. Patient was instructed to follow-up with his primary care physician in 3 to 5 days for results of the GC and Chlamydia cultures. Patient understood and was agreeable with the plan. All questions were answered. Discharge Plan Triage Chief Complaint: Complaint ED Provider: Alexis De Luna Dx/Rx/DC Orders Clinical Impression: Dysuria, Urethritis Instructions: ED Dysuria, Uncertain Cause (Adult) Prescriptions: New doxycycline monohydrate 100 mg capsule 100 mg PO BID Qty: 14 0RF No Action clonazepam [Klonopin] 0.5 mg tablet 0.5 mg PO DAILY PRN (Reason: Anxiety) fluoxetine 20 mg capsule 40 mg PO QHS Patient Comments: take 1 capsule by mouth once daily oxcarbazepine 300 mg tablet 150 mg PO QHS Patient Comments: take 1 tablet by mouth twice a day cyclobenzaprine 10 mg tablet 10 mg PO TID PRN PRN (Reason: muscle spasm) fluphenazine HCl 5 mg tablet 10 mg PO DAILY naproxen 500 mg tablet 500 mg PO BID Primary Care Provider: David Irving Referrals: David Irving, [Primary Care Provider] - 3-5 Days Print Language: [place] Disposition Disposition: Home, Self Care
[2023-09-28 20:08] LABS: Bacteria 0 SEEN /hpf (None Seen); Mucous, Urine 0 SEEN /hpf (<or=2+); Red Blood Cells-Urine 0 SEEN /hpf (0-5); Squamous Epithelial Cells - UA 0 SEEN /hpf (0-5); White Blood Cells 0 SEEN /hpf (0-5)
[2023-09-28 20:18] LABS: Color, Urine Yellow (Yellow); Glucose, Dipstick Normal (Normal); Ketone-Dipstick Negative (Negative); Leukocyte Esterase-Dipstick Negative /ul (Negative); Nitrite-Dipstick Negative (Negative); Occult Blood-Urine Negative /ul (Negative); Protein-Dipstick Negative (Negative); Urine Bilirubin Dipstick Negative (Negative); Urine Clarity Clear (Clear); Urine Urobilinogen Normal (Normal)
[2023-09-28] MEDS: metroNIDAZOLE 500 MG Tablet 2000 MG PO (21:30)
[2023-09-28] MEDS: Doxycycline 100 MG CAPSULE PO (21:32)
[2023-09-28 21:33] VITALS: BP 134/88; PULSE 89; RESP 16; TEMP 36.5; O2SAT 98
[2023-09-28] MEDS: Ceftriaxone 500 MG Vial IM (21:42)
== END 2023-09-28 21:54 | disposition home or self-care (01) ==
PROVIDERS: Emergency Provider Emergency Medicine; PCP Student in an Organized Health Care Education/Training Program; Visit Provider Emergency Medicine
DX: N34.2 Other urethritis (principal); R07.9 Chest pain, unspecified; R30.0 Dysuria; R31.9 Hematuria, unspecified
CPT/HCPCS: 81001; 87491; 87591; 96372; 99283

== ENCOUNTER 2023-10-12 08:00 | Outpatient (RCR) | payer MEDICAID, SELFPAY ==
--- NOTE | 2023-10-12 08:30 | BH.PSA_ITS ---
Source of Information Presenting Problems/Circumstances Problems, Referral Source, Mental Status, Client: Referred to [facility] by his psychiatric nurse practitioner due to worsening depression and anxiety. All I do is sleep and sit in my bed all day. Sleeping and avoidance as a means to cope with depression/anxiety. Sleeping over 12 hours a day. Due to mental health struggles has been unable to maintain employment. Psychiatric Presentation Psych Issues & Need for Admission Psychiatric Issues:: Major Depressive Disorder, Tourette's, OCD Past Psychiatric History Treatment Hx First hospitalization:: [facility]- 09/2022 Most recent hospitalization:: refer above Medication Trials:: Yes (Several medication trails. Refer to psychiatric evaluation. ) ECT Therapy:: No Age of first mental health symptoms: Diagnosed with Tourette's syndrome at age 7 and OCD as a child (handwashing and cleanliness obsessions and rituals). Describe (age, circumstance, etc) any past hospitalizations: 09/2022- Admitted due to suicidal ideations anger outbursts. Current providers for mental health treatment (counselor, psychiatrist, counseling case manager, etc.): [facility]worker at [facility] Development & Family of Origin Childhood Significant Childhood Events: Bullied in middle school due to his Tourette's Syndrome. Family Who currently lives in your home?: Currently lives with is biological parents Describe family composition:: Single. Never . No children. Primary family support are his bio-parents, brother, sister, niece, and nephew. Family History Family Hx of Psychiatric or AOD Problems: Mother, sister and maternal grandmother have depression and anxiety Ethnicity Sexuality Sexual Orientation: Heterosexual Spirituality Beliefs Is there a particular form of support from this community you can use for your recovery?: Yes (Pt's hoahaoism is very important to him. ) Mental Status Memory Recent Memory: Fair Remote Memory: Fair Concentration Concentration: Fair Eye Contact Eye Contact: Good Speech Speech: Articulate Thought Process Thought Process: Logical Insight: Poor Judgment: Poor Behavior: Anxious Orientation Orientation: Time, Person, Place and Situation Appearance Appearance: Appropriate Mood Mood: Anxious and Depressed Affect Affect: Flattened Suicide Assessment Suicidal Ideation Have you ever felt like hurting yourself?: Yes Please explain:: Pt reports long-standing suicidal ideations and passive thoughts of . Denies active suicidal ideations, plan, or intent. Reports survival ambivalence everyone would be better off without me. No hx of attempts. Completed [place] Suicide Screening at admissions with low risk. Were you using ETOH/drugs at the time?: No Suicidal Intentional Rating Scale (SIRS): Suicidal thoughts (past) Physician Notification Violent Behavior/Abuse History Homicidal Ideation Do you have any homicidal thoughts? If so, explain:: No Abuse Have you ever been abused?: No Life Events Are there any other significant life events?: Hardships (Housing issues, unable to maintain consistent employment due to mental health, reliant on parents financially) Safety Do you ever feel threatened in your home? If yes, describe:: No Adult Social History Age 20 to Present Describe your current support system:: Primary support is current GF. At times parents can be supportive, however pt reports he gets yelled at a lot by his father. 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 If yes, describe:: No Court Orders Have you had any past court orders for psychiatric treatment?: No Do you have a present court order for psychiatric treatment?: No Problem Checklist Current Problem Areas Problem List: Depressed mood/sad, Anxiety, Anger/aggression and Additional psychosocial stressors (unemployed, financial stressors, dependent on parents for housing) Discharge Planning Needs Anticipated Follow-Up Mental Health Center (Name/Phone Number):: [facility] Therapist/Psychiatrist:: Stanley Rosales- therapist Other (to be determined): Alycia Tanner- lineworker, [facility] Family and Caregiver Contacts:: Alpa Cayden- mother Release of Information Signed:: Yes [facility]'s Assessment Client's Needs What are the client's feelings about the program?: I have to do something to get better What are the client's goals?: I'm just trying to deal with my emotions What are the client's strengths?: Presents as motivated. Insight into struggles. Diagnoses Diagnoses Diagnosis #1:: Major Depressive Disorder, recurrent, severe, w/o psychotic features Diagnosis #2:: OCD Diagnosis #3:: Tourette's Syndrome Interpretive Summary Interpretive Summary Interpretive Summary: Pt is a 38 year old male. Hx of Major Depressive Disorder, recurrent, severe, w/o psychotic features; OCD; and Tourette's Syndrome. Hx of previous psychiatric admission to [facility] in 09/2022 due to suicidal ideations and anger outburst. Pt has participated in [facility] IOP on two different occasions, however has never successfully completed the program. Referred to IOP by her outpatient psychiatric nurse practitioner due to worsening depression, significant isolation, anxiety, and avoidance. According to pt he is sleeping between 12-14 hours a day due to his depression. All I do is sleep and sit in bed all day. Pt reports that he sleeps excessively to cope with and/or escape depression/negative thoughts. Endorses low energy, low motivation, hopelessness, worthlessness, anhedonia, and isolation. Denies active suicidal ideations, plan, or intent. No hx of attempts. Long-standing fleeting suicidal ideations. Endorses passive thoughts of and survival ambivalence. Everyone would be better off without me. Has been unable to maintain employment due to anxiety and low frustration tolerance. 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 I can't keep a job. Severe anxiety, panic, and fear of failure result in calling off or not showing up to work. I make myself sick. Pt relies on his parents for housing and finances which leads to feelings of being worthless. Denies HI or psychosis. Denies substance abuse. Family hx of depression (mother, maternal GMA, and sister). Treatment Plan Recommendations Recommendations Guidelines Recommendations:: Due to mental health impacting functioning, limited benefits from traditional outpatient, survival ambivalence, and severe isolation recommended IOP level of care.
--- NOTE | 2023-10-12 09:05 | BH.SGPN.GN ---
Behaviors/Verbalizations/Mental Status: [] Eye contact is good. Motor activity is appropriate. Appearance is casual. Speech is Appropriate. Mood is anxious and depressed. Affect is congruent Thoughts are linear and logical. No evidence of psychosis. Reviewed daily check in sheet and no reports of suicidal ideations or intent. Client Response/Progress/Benefit: [] Pt participated at times during the group discussions. Attentive. Daily symptom tracker notes /5 for depression and 2/5 for anxiety. This was pt's first day in IOP and he briefly introduced himself to the group. Shared that he has struggles with depression and anxiety for several years. Believes that his mental health is a significant obstacle to getting a job, maintaining a job, and living independently. Group provided support, empathy, and feedback/advice for his first day in IOP which was beneficial. Will continue in IOP to prevent decompensation, stablize mood, and improve functioning. Narrative Note: []
--- NOTE | 2023-10-12 10:15 | BH.SGPN.GN ---
Behaviors/Verbalizations/Mental Status: []Pt alert and oriented, neatly dressed and groomed. Eye contact good. Motor activity appropriate. Speech within normal limits. Affect congruent, mood calm. Thoughts linear, logical, no signs of hallucinations or delusions. Client Response/Progress/Benefit: [] Pt was attentive during psychoeducation and participated in group activity. Group discussed what contributes to a person?s perspective and how perspective can positively or negatively impact mental health treatment. Pt reflected on their perspective today and how it is impacting them. Pt shared their perspective today is ?in between? as pt is trying to be hopeful, but ?some days I don?t use my tools and feel I won?t get better.?. Pt stated he also has confidence, but not in himself. Pt appeared to benefit from increasing awareness of different perspectives and how they can affect mental health. Pt will continue IOP tx to prevent decompensation, improve daily functioning, and increase distress tolerance skills. Narrative Note: []
--- NOTE | 2023-10-12 10:50 | BH.MTP ---
Master Treatment Plan Patient Information Program Physician:: Corina Jose Primary Therapist:: Jose Angel Tello Psychiatric Diagnoses Psychiatric Diagnoses:: 1. Major depressive disorder, recurrent, severe without psychosis 2. OCD 3. Tourette's syndrome Diagnosis Code(s):: F33.2 Estimated LOS Estimated LOS (in weeks):: 6 Problem/Goal #1 Problem/Goal #1 Stated Goal:: Client will reduce depressive symptoms, worthlessness, lack of concentration, and negative automatic thoughts, isolation, and anhedonia AEB self-report and reduction of score on the depression domain on the DSM-5 outcomes measurement. Description of Barriers: hx of non-compliance with mental health treatment, difficulty getting up in the AM for the program, psychosocial stressors, stigma associated with mental illness, conflict with primary support. Functional Impact: Pt is currently isolating all day in his room. Unhealthy coping skills (sleeping, avoidance) to escape stressors and emotions. Goal Relevant Strengths/Supports: Motivated for treatment. Objectives Objective #1: Stated Objective: Client will learn and utilize 2-3 healthy coping strategies to manage depressive symptoms as shown by reduced DSM-5 cross-cutting symptom measure score. Interventions: Through individual and group counseling will help client identify triggers and warning signs of depression and will teach client various healthy coping skills to manage client?s symptoms and give client tangible resources to use to regulate emotions. Discharge Criteria: Able too identify and consistently utilize 2-3 healthy coping strategies. Target Date: 12/04/23 Review Date: 11/11/23 Objective #2: Stated Objective: Client will identify 2-3 cognitive distortions that lead to mood dysregulation and learn 2-3 ways to manage these thoughts to improve mood stability. Interventions: Through individual and group counseling will be provide education on cognitive distortions, mistaken beliefs, and identifying and combating negative self-talk. Discharge Criteria: Be able to identify 2-3 cognitive distortions and ways to combat negative thoughts associated with them. Target Date: 12/04/23 Review Date: 11/11/23 Problem/Goal #2 Problem/Goal #2 Stated Goal:: Stabilize anxiety level while increasing ability to function on a daily basis AEB self-report and decreased score on the anxiety domain of the DSM-5 outcomes measures. Description of Barriers: hx of non-compliance with mental health treatment, difficulty getting up in the AM for the program, psychosocial stressors, stigma associaciated with mental health, low frustration tolerance, seeking comfort space when distressed. Functional Impact: Pt's anxiety, worry, ruminations, and panic have led to inability to maintain consistent employment. Pt reports panic attacks prior to and during work in the past. Lack of consistent work has led to financial stressors, loss of independence, and limited purpose/meaning. Goal Relevant Strengths/Supports: appear motivated. Objectives Objective #1: Stated Objective: Pt will improve ability to cope with anxiety symptoms and reduce avoidance by setting 1-2 small exposure goals each week. Interventions: Through group and individual therapy, pt will gain skills on distress tolerance and sitting with the uncomfortable. Therapist will help pt set small, realistic exposure goals each week. Therapist will have pt practice these goals both in session and at home. Therapist will provide psychoeducation on why this is important to reducing anxiety and improve functioning. Therapist will also provide psychoeducation on intrusive thinking and reducing safety behaviors. Discharge Criteria: Pt will have accomplished this goal when pt can report accomplishing at least 1 exposure goal per week and can report reduced avoidance overall. Target Date: 12/04/23 Review Date: 11/11/23 Objective #2: Stated Objective: Client will learn and implement 2-3 calming skills to reduce overall anxiety and manage anxiety Interventions: Through individual and group counseling will teach the client calming/relaxation skills (e.g., muscle relaxation, mindful breathing) and how to discriminate better between relaxation and tension; teach the client how to apply these skills to his/her daily life. Discharge Criteria: Able to identify and consistently utilize 2-3 calming skills. Target Date: 12/04/23 Review Date: 11/11/23
--- NOTE | 2023-10-12 10:51 | BH.COMM ---
Communication Note Communication with Client Communication Note: Met with pt to complete paperwork, psychosocial, and begin working on treatment plan. Completed suicide risk assessment. Low risk. Discussed case with Dr. Jose with plan to admit to IOP with dx F33.2
--- NOTE | 2023-10-12 11:15 | BH.SGPN.GN ---
Behaviors/Verbalizations/Mental Status: []Pt alert and oriented, casually dressed and groomed. Eye contact fair to good. Motor activity appropriate. Speech within normal limits. Affect congruent, mood anxious and dysthymic. Thoughts linear, logical, no signs of hallucinations or delusions. Client Response/Progress/Benefit: []Pt was attentive and contributed to group discussion. Pt worked with group to identify strategies that can help with challenging negative perspective. Pt completed strengths exploration worksheet, identifying love, kindness, and athleticism as personal strengths. Pt able to acknowledge how these strengths are helping pt and can continue to help pt in mental health journey. Pt identified wanting to work on leaning on strength of kindness to begin practicing treating himself ?with kindness and working to improve self-talk. Benefited from identifying personal strengths and strategies for enhancing use of identified strengths. Pt will continue IOP tx to increase coping skill repertoire, improve mood stability, and prevent decompensation. Narrative Note: []
--- NOTE | 2023-10-14 09:05 | BH.SGPN.GN ---
Behaviors/Verbalizations/Mental Status: [] Eye contact is good. Motor activity is appropriate. Appearance is casual. Speech is Appropriate. Mood is depressed and irritable. Affect is congruent. Thoughts are linear and logical. No evidence of psychosis. Reviewed daily check in sheet and no reports of suicidal ideations or intent. Client Response/Progress/Benefit: [] Pt was an active participant in group discussions. Attentive. Pt shared mental health struggles which include isolation, sleeping ?all day?, avoiding his family, and having no motivation. Reports frustration at lack on progress, external stressors, and his inability to maintain consistent employment. Reports recent anger outburst as well. No progress noted. Benefited from group support, encouragement, and feedback. Will continue in IOP to prevent decompensation, increase healthy coping, and improve functioning. Narrative Note: []
--- NOTE | 2023-10-14 11:00 | BH.NA_ITS ---
Physical Data Vital Signs Pulse Rate: 67 Blood Pressure: 156/91 Height/Weight Height: 1.88 m Weight:: 90.718 kg Weight in Pounds: 200.0 lbs Current Medication Compliance Medication Compliance Do you take your medication as prescribed?: Yes Nutritional History Appetite Nutritional Instructions: Describe your appetite:: Fair Additional nutritional information:: Client states he has recently unintentionally lost a few pounds due to decreased appetite. Client states he eats only 1 actual meal per day, and at times he does not eat any and only eats snacks. Functional Assessment Sleep Pattern Describe any problems with sleeping: Client states a few weeks ago, he was sleeping 18-19 hours per day. Client states this week he has been sleeping about 15-16 hours per day. Sensory/Communication Assess Vision Problems Do you have any vision problems?: Glasses Medical Problems/History Cardiac Conditions Cardiovascular: Other (See comments) (history of heart murmur) Neurological Conditions Neurological: Other (See comments) (Tourettes syndrome) Pain Assessment Do you have acute or chronic pain?: No Additional History Additional comments:: OCD Surgical History Surgical History Have you had any surgeries? If so, list type and date:: Yes (T&A, hernia x 2) Substance Abuse Substance Abuse Please describe substance abuse in the last 30 days:: Client reports minimal alcohol use, stating he occasionally has a beer. Client denies tobacco or substance use. Client states he drinks 200-300mg of caffeine everyday, stating he usually has a Celsius energy drink and sometimes also a Monster energy drink. Discussed with client the benefit of decreasing caffeine intake and client voices understanding of same but states I can't function without them, I will just go back to sleep if I don't have one Mental Status Summary Mental Status Significant Findings/Observations on Appearance and Mood:: Client is alert and oriented x 4. Client is casually groomed. Client is cooperative with assessment. Client makes good eye contact. Client's voice has normal rate and volume. Client has a constricted affect. Client makes logical associations and has normal processing. Client denies delusions/hallucinations. Client denies current SI. Suicide Assessment Suicidal Ideation Are you currently or have you been suicidal in the past?: Yes Suicidal Intentional Rating Scale (SIRS): Suicidal thoughts (past) (client admits at times he thinks he would be better off but denies thoughts of SI or intent/plan to harm himself) Physician Notification Past Psychiatric History MH Treatment Hx Past Psychiatric Medications:: Prozac (for several years), Klonopin, Cymbalta, Auvelity (made Tourettes worse), Lamictal (got rash), Abilify Age of first mental health symptoms: Client states he has been on Prozac off and on since he was 17 for mental health. Describe (age, circumstance, etc) any past hospitalizations: 09/2022- [facility] Current providers for mental health treatment (counselor, psychiatrist, outsole caser, etc.): Stanley at [facility] for counseling, Alycia Tanner at [facility] for psychiatry Fall Risk Assessment Age Age: Less than 60 Mental Status Mental Status: Willing & able to ask for assistance when needed Physical Status Physical Status: No problems Impairments Impairments: None Elimination Elimination: Continent AND independent Gait or Balance Gait or Balance: Walks independently Hx of Falls History of falls in the past 6 months: No known history Medications/Substances Psychotropics:: Antidepressants and Antipsychotics Medications/substances used within the past 24 hours or ordered to administer: 1-2 of the medications/substances listed above Total Score Total Points:: 1 RN Summary of Impressions Impressions Recommendations Impressions: Psychiatric Issues: major depressive disorder, recurrent severe without psychosis, OCD, Tourette's syndrome Impressions: Treatment Planning Recommendations: Client states to this nurse that he feels like his Prozac is not working, he feels very depressed, and he would like a medication change. Client has had challenges with medication changes in the past due to worsening of his Tourette's. Discussed client's request with Dr. Montanez, discussed medication history and symptoms. Level of Care How do the client's current symptoms and functional deficits support need for this level of care?: Client was referred to [facility] by outpatient psychiatry due to worsening depression and isolation. Client has been in IOP twice before, but has not finished IOP either time. Client states for the past couple of months he has been more depressed, sleeping up to 19 hours per day. Client states he does not have a job at this time, which is a financial stressor to him, stating that he usually has anxiety about work and starts calling off and ends up losing his job. Client reports he has been having daily panic attacks for several months. Discussed with client his caffeine intake could be negatively affecting his mental health (he drinks 1-2 energy drinks per day) and client voices understanding but states he is not able to function without them. Client reports decreased motivation, decreased energy, increased sleeping, and anhedonia. Client denies active SI at this time, but states he at times thinks he would be better off but denies plan/intent to harm himself. IOP will promote gains and prevent further decompensation while providing social support and skills training.
[2023-10-14 11:51] VITALS: BP 156/91; PULSE 67
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
--- NOTE | 2023-10-14 12:26 | BH.DR.ITP ---
Initial Treatment Plan Patient Information Visit Information: ADMISSION DATE: EXPECTED LOS: 4-6 weeks Problems/Symptoms Problem #1:: Depression Symptom:: Sadness, worthlessness, hopelessness, hypersomnia, low motivation, passive thoughts of , anhedonia Problem #2:: Anxiety Symptom:: Worry, rumination, panic attacks, avoidance
--- NOTE | 2023-10-16 09:00 | BH.SGPN.GN ---
Behaviors/Verbalizations/Mental Status: [] Pt alert and oriented, neatly dressed and groomed. Eye contact good. Motor activity appropriate. Speech within normal limits. Affect congruent, mood disconnected and depressed. Thoughts linear, logical, no signs of hallucinations or delusions. Reviewed pt?s symptom tracker, no risk for suicidal ideation, plan, or intent 10/16/23 Client Response/Progress/Benefit: []Pt responded well to session, attentive and engaged. Pt reports feeling out of body this morning sharing he is also mentally beating himself up for missing an IOP day when he told himself I wasn't going to miss any. Pt was reminded to practice self-compassion and combat distortions that will only reinforce depressed and anxiety. Pt's mental health wins today were going for a walk yesterday and buying a book that will hopefully help pt better understand his mental health. Pt appeared to benefit from giving himself radha and connecting with peers. Pt will continue IOP tx to prevent decompensation, gain healthy coping skills, and reduce isolation. Narrative Note: []
--- NOTE | 2023-10-16 10:15 | BH.SGPN.GN ---
Behaviors/Verbalizations/Mental Status: []Patient was alert and oriented, casually dressed and groomed. Eye contact was good, motor activity normal, speech within normal limits. Affect congruent, mood content. Thoughts linear, logical, no signs of hallucinations or delusion Client Response/Progress/Benefit: []Pt participated in the group discussions AEB providing input and taking notes. Attentive during psychoeducation Goal Setting. Participated during the discussion on common barriers and pt identified some personal barriers as negative attitude, procrastination, and goals taking a long time. Group also identified benefits of goals as sense of purpose, improved self-confidence, more motivation for other goals, and improved mental health. Benefited from increased awareness of mental health benefits of goals as well as psychoeducation on SMART goal criteria. Will continue in IOP to improve mood stability, reduce negative thinking patterns, and improve distress tolerance skills. ? Narrative Note: []
--- NOTE | 2023-10-16 11:15 | BH.SGPN.GN ---
Behaviors/Verbalizations/Mental Status: []Pt alert and oriented, casually dressed and groomed. Eye contact good. Motor activity appropriate. Speech within normal limits. Affect congruent, mood anxious. Thoughts linear, logical, no signs of hallucinations or delusions. Client Response/Progress/Benefit: [] Pt was engaged during discussion and willing to complete the worksheet challenging them to develop a personal SMART goal. Pt chose the goal of to come to IOP everyday next week without missing a day or go home early. Pt stated not waking up on time as a potential barrier. Identified solution as setting numerous alarms and asking for his support to wake him up. Benefited from this group by developing a short-term SMART goal related to mental health. Will continue IOP tx to challenge distorted thoughts, increase consistent use of healthy coping skills, and prevent decompensation.
--- NOTE | 2023-10-19 09:05 | BH.SGPN.GN ---
Behaviors/Verbalizations/Mental Status: [] Eye contact is good. Motor activity is appropriate. Appearance is casual. Speech is Appropriate. Mood is euthymic. Affect is full. Thoughts are linear and logical. No evidence of psychosis. Reviewed daily check in sheet and no reports of suicidal ideations or intent. Client Response/Progress/Benefit: [] Pt participated at times during the group discussions. Attentive. Daily symptom tracker notes /5 for depression and 2/5 for anxiety. Reports increased energy and motivation over the weekend. Also reports decreased avoidance and isolation. Pt had been isolating to his room throughout the day however spend five hours outside with his family. Haven't done that in a long time. Also did not nap or sleep to escape/stop emotions. Also attended zoroastrianism on Thursday which is another social activities he has struggles to attend since worsening depression. Unable to identify any skills, thoughts, and changes that contributed to improvement. Emotion is hopeful. Progress noted per pt report. Benefited from group support, encouragement, and feedback. Will continue in IOP to prevent decompensation, decrease isolation, increase healthy coping, and improve functioning. Narrative Note: []
--- NOTE | 2023-10-19 10:15 | BH.SGPN.GN ---
Behaviors/Verbalizations/Mental Status: []Client alert and oriented, casually dressed and groomed. Eye contact good. Motor activity appropriate. Speech within normal limits. Affect congruent, mood depressed and anxious. Thoughts linear, logical, no signs of hallucinations or delusions. Client Response/Progress/Benefit: []Pt was an active participant, AEB taking notes and providing input in group discussions and activities. Attentive during psychoeducation. Pt engaged during interactive discussion in which the group defined self-care and discussed its benefits. Group discussed barriers to engaging in self-care. Group members together came up with guilt, time, urge to put others first, not knowing what to do for self-care, and perception that its unproductive as barriers to engage in self-care. Pt stated their personal barrier is ?feeling weak if I need self-care.? Pt participated in small groups where they worked to identified and challenged common self-care ?myths?. Benefited from increased awareness of self-care, its benefits, and the consequences of not utilizing self-care strategies. Will continue IOP tx to prevent decompensation, gain healthy coping skills, and reduce isolation. Narrative Note: []
--- NOTE | 2023-10-19 11:30 | BH.MDN_ITS ---
Multi-Disciplinary Note Note 30-min Individual: Time Started:: 11:30 Date: 10/19/23 Purpose of session/treatment goals addressed:: Reviewed current symptoms and progress. Worked together on treatment plan goals. Eye Contact:: Good Motor Activity:: Other (Hx of Tourette's. Slight shoulder tic when anxious) Appearance:: Casual Speech:: Appropriate Mood:: Irritable and Depressed Affect:: Congruent Thoughts:: Linear, Logical and No evidence of hallucinations/delusions noted Staff Interventions:: treatment planning Client Response:: Upon entering the office pt immediately began to discussion conflicts with family members. I'm just trying to deal with my emotions. Elaborated on the recently strained relationships and reason's behind it as well as this impacts his current relationship with GF. Ruminating on events, relationships, and interactions with family which has been primary stressor for several years. Difficulty communicating effectively and setting boundaries. According to pt he ignored certain family members for several hours during a get together. Currently reports guilt over his reactions and is remorseful. When asked about his goals for treatment he identified mood management as primary concern. I blow up way too much. Pt also reports significant isolation often spending all day in his room and avoiding family events. Hopeless about the future due to inability to maintain consistent employment and being financially dependent on his parents. Sees himself as a failure. Risks/Concerns:: Denies active suicidal ideations, plan, or intent. No overt concerns noted. Progress Toward Goals/Plan:: Pt reports progress since starting IOP last week. Reports increased energy and motivation as well as decreased isolation/avoidance over the weekend. He initially attributes this to medication change, however states maybe not. Insight that medication change and working on things have made him more hopeful. Pt's remains very focused on obtaining a job and moving out of his house. I gotten comfortable in current living arrangements. When presented with uncomfortable or uncertain situations his anxiety, negative thoughts, and depression exacerbate often leading to not following through with uncomfortable task (i.e. work, event, etc.). Will reach out to Career Program through [employer]. Will also begin to develop a fear ladder to increase skills and confidence in engaging in uncomfortable or anxiety- producing situations. Time Stopped:: 12:00
--- NOTE | 2023-10-21 09:00 | BH.SGPN.GN ---
Behaviors/Verbalizations/Mental Status: [] Eye contact good. Motor activity appropriate. Speech within normal limits. Affect congruent, mood content, fatigued. Thoughts linear, logical, no signs of hallucinations or delusions. Reviewed client?s symptom tracker, denies SI, plan, or intent as of 10/21/2023. Client Response/Progress/Benefit: [] Client receptive of session, attentive and willing to process with group. Reports improved sx of anxiety ?(2/5) and depression (3/5) per daily sx tracker. ?Identified mental health ?win as successfully getting to group on time and shared that he struggles with this as he is not a morning person. Identified using opposite action and reminding himself of the benefits of doing so in order to improve likelihood of following through. Shared wanting to successfully complete the program to prove to himself that he can. Additional win noted as Challenging himself to visit his brother and soon to be [id number]. Shared that the relationship is strained as he does not get along with his brother's fiance, but did well to remind himself of the importance of improving the relationship. Current stressor noted as finding a job but reports focusing on what's in his control and reminding himself he is doing what he can by applying and checking on his applications. Benefitted from encouragement and support of the group. Recommended continued IOP tx to further improve mood stability, promote consistent skill application, well as prevent decompensation. Narrative Note: []
--- NOTE | 2023-10-21 10:10 | BH.MDN_ITS ---
Multi-Disciplinary Note Note 60-min Individual: Time Started:: 10:10 Date: 10/21/23 Purpose of session/treatment goals addressed:: Pt requested to speak with therapist due to anxiety and desire to leave for the day. Eye Contact:: Good Motor Activity:: Appropriate Appearance:: Casual Speech:: Appropriate Mood:: Anxious and Depressed Affect:: Congruent Thoughts:: Linear, Logical and No evidence of hallucinations/delusions noted Staff Interventions:: thought challenging, psychoeducation on: (fear ladder, mindfullness skills. ), treatment planning and goal setting Client Response:: Pt states I just run from all my problems. According to pt when he gets slightly uncomfortable or anxious his primary coping response is to leave and return home to his comfort zone. Identified feeling dissociated, nausea, and restlessness this AM. I wanted to go home Staff and peers encouraged him to stay and utilize skills to work through or sit with the uncomfortable. Shared automatic thoughts which encourage him to return home and he will feel better. When asked if he would feel better he states No I would feel like a failure and have guilt. It's a very frustrating cycle for pt as this has been primary obstacle to consistent employment. He gets anxious, feels distress, and leaves his jobs or any situation which is uncomfortable. He then feels like a failure and guilty which leads to depression and isolation. After awhile he builds up enough courage to interview and seek job only to show up with anxiety and distress starting the cycle over again. Risks/Concerns:: Denies active SI, plan, or intent. No risks or concerns noted. Progress Toward Goals/Plan:: Pt worked through anxiety and urges to leave today with the help of [facility] staff and peers. Increased insight. Developed list of reframing thoughts to utilize to challenge negative automatic thoughts. Discussed strategies to sit with uncomfortable feelings. We discussed local [employer] programs to help with career support. Pt was encouraged to apply and was shown how. We also discussed developing a fear ladder and exposure goals to gain confidence in managing anxiety outside of his house. Plan is to identify a local volunteering option to work on exposure to work-like situations in small increments. Time Stopped:: 11:00
--- NOTE | 2023-10-21 11:10 | BH.SGPN.GN ---
Behaviors/Verbalizations/Mental Status: []Pt alert and oriented, casually dressed and groomed. Eye contact good. Motor activity appropriate. Speech within normal limits. Affect flat, mood depressed. Thoughts linear, logical, no signs of hallucinations or delusions. Client Response/Progress/Benefit: []Pt responded well to session AEB completing the resilience worksheet provided. Pt participated in the discussion and worked cooperatively with group to identify strategies to enhance each of the components discussed. Pt reports belief they already use resilience traits of??making connections and self-awareness.? Pt stated they would like to continue to develop resilience trait of ?maintaining a hopeful outlook? as pt feels pt would benefit from reminding himself that ?this can be a bad moment not a bad day.? Pt seemed to benefit from discussing strategies for improving personal resilience and identifying resilience traits pt already possesses. Will continue IOP tx to prevent decompensation, gain healthy coping skills, and reduce isolation. Narrative Note: []
== END 2023-10-21 23:59 ==
LOC: BHIOP 08:00
PROVIDERS: PCP Student in an Organized Health Care Education/Training Program; Referring Provider Psychiatry & Neurology Psychiatry; Visit Provider Psychiatry & Neurology Psychiatry
DX: F33.2 Major depressive disorder, recurrent severe without psychotic features (principal); F42.9 Obsessive-compulsive disorder, unspecified; F95.2 Tourette's disorder; Z79.899 Other long term (current) drug therapy
CPT/HCPCS: 90792; H2012; H2020; S9480; T1002; 90832; 90837

== ENCOUNTER 2023-10-22 07:15 | Outpatient (RCR) | payer MEDICAID, SELFPAY ==
[2023-10-22 00:54] VITALS: BP 156/91; PULSE 67
--- NOTE | 2023-10-23 09:05 | BH.SGPN.GN ---
Behaviors/Verbalizations/Mental Status: [] Pt alert and oriented, neatly dressed and groomed. Eye contact good. Motor activity appropriate. Speech within normal limits. Affect congruent, mood euthymic. Thoughts linear, logical, no signs of hallucinations or delusions. Reviewed pt?s symptom tracker, no risk for suicidal ideation, plan, or intent 10/23/23 Client Response/Progress/Benefit: []Pt responded well to session, attentive and engaged. Pt reports feeling pumped this morning. Pt shared he just got a job after looking for a long time. Pt shared he plans to only work part-time so he can continue IOP tx and improve his mood stability. Pt's other win today is that he was able to be civil with his brother and his brother's girlfriend when normally they fight. Pt shared using the 5-senses and deep breathing helped him. Pt did not share any stressors today. Pt appeared to benefit from reflecting on progress and connecting with peers. Pt will continue IOP tx to increase emotional regulation skills, reduce avoidance and isolation, and improve work-related functioning. Narrative Note: []
--- NOTE | 2023-10-23 10:25 | BH.SGPN.GN ---
Behaviors/Verbalizations/Mental Status: []Pt alert and oriented, casually dressed and groomed. Eye contact good. Motor activity appropriate. Speech within normal limits. Affect congruent, mood content. Thoughts linear, logical, no signs of hallucinations or delusions. Client Response/Progress/Benefit: [] Pt took notes and contributed some throughout group discussion and interactive activity. Attentive during psychoeducation on fixed mindset and how a fixed mindset can impact mental health, resilience, and relationships. Participated during the interactive group discussion on fixed mindset in which group verbalized their current fixed mindsets and how they affect their mental health. Pt shared common fixed mindset thoughts they have which included I?ll never be good enough?, ?I'll never amount to anything?, and ?I'll never be understood?. These thoughts lead to giving up or not trying, low self-esteem, and relationship tension/conflict. Pt benefited from increased awareness of growth mindset and fixed thoughts and how fixed thoughts impact their mental health. Will continue IOP tx to prevent decompensation, improve mood stability, and gain healthy coping skills. Narrative Note: []
--- NOTE | 2023-10-23 11:15 | BH.SGPN.GN ---
Behaviors/Verbalizations/Mental Status: []Pt alert and oriented, casually dressed and groomed. Eye contact good. Motor activity appropriate. Speech within normal limits. Affect congruent, mood content, anxious. Thoughts linear, logical, no signs of hallucinations or delusions. Client Response/Progress/Benefit: [] Pt was an active participant during activity and discussion. Pt did well to remain attentive and participate as group worked on identifying characteristics and benefits of adopting a growth mindset. Worked with fellow participants in reframing the example fixed thoughts into growth mindset thoughts. Pt worked on changing own fixed thought and reframed the thought to ?I can improve my mental health with skills I've learned in IOP. Pt appeared to benefit from challenging own thoughts and engaging in the activity. Pt will continue IOP tx to increase consistent use of healthy coping skills, challenge distortions, and prevent decompensation.
--- NOTE | 2023-10-28 09:02 | BH.SGPN.GN ---
Behaviors/Verbalizations/Mental Status: [] Client alert and oriented, casual appearance. Eye contact good. Motor activity appropriate. Speech within normal limits. Affect congruent, mood euthymic and anxious. Thoughts linear, logical, no signs of hallucinations or delusions. Reviewed client's symptom tracker, no risk for suicidal ideation, plan, or intent. Client Response/Progress/Benefit: [] Client responded well to session AEB listening to others and sharing thoughts/feelings. Client reported mental health positive as his girlfriend being okay after having to go to the ER for a health issue. Client stated current stressor is not having a car because the transmission just went out. Client reported additional positive as despite his car not working this morning he was able to find a way to IOP. Appeared to benefit from support from peers. Will continue IOP tx to improve distress tolerance, increase follow through of skills and strategies, and prevent decompensation.
--- NOTE | 2023-10-28 11:10 | BH.SGPN.GN ---
Behaviors/Verbalizations/Mental Status: []Pt alert and oriented, casually dressed and groomed. Eye contact good. Motor activity appropriate. Speech within normal limits. Affect congruent, mood content. Thoughts linear, logical, no signs of hallucinations or delusions. Client Response/Progress/Benefit: []Pt was an active participant throughout AEB contributing to group discussion and taking notes. Pt provided input during small group discussion on strategies to combat each factor maintaining adverse nutritional cycles. Worked with group to identify ways to foster more mindful nutritional choices. Each group participant identified one small step they could take today to begin establishing mental wellness promoting nutritional choices. Pt shared plans to?use delay distract decide when he wants to drink. Appeared to benefit from gaining insight into mental wellness centered nutrition and identifying personal steps pt can take to support own nutritional psychology. Recommended continued IOP tx to prevent decompensation, improve work-related functioning, and increase distress tolerance skills. ??? Narrative Note: []
--- NOTE | 2023-10-28 11:49 | PCM.BH.PN ---
Progress Note Progress Note: History of Present Illness/Interim History: The patient is a 33-year-old single, male with a history of depression, OCD, panic attacks and Tourette's syndrome who is seen in follow-up at the [facility] behavioral health [facility]. I last saw the patient 2 weeks ago and at that time he requested and agreed to start weaning his Prozac as he has been on it off and on for 15 years and on it for 1 year in the recent but feels it does not help him anymore. Trintellix was added 2 weeks ago. The patient states that he feels he is benefiting from the IOP and learning skills to help with his mental health issues. He is working a part-time job and enjoying this. He is trying to use less energy drink. He is tolerating the medication well with no side effects. 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 He states that he is sleeping less than he was before (he was sleeping 14 hours a day before) and states that he has an easier time getting himself up and functioning in the morning. He now denies any passive thoughts of . He also denies suicidal ideation, plan for suicide, homicidal ideation, hallucinations or delusions. OCD remains improved. Current Psychiatric Medications: [] Prozac decreased to 20 mg 2 weeks ago; Trintellix 5 mg p.o. daily (x 2 weeks); fluphenazine 10 mg p.o. daily (for Tourette's, increased 4 months ago); Klonopin 0.5 mg as needed once a day or less for anxiety. Mental Status Examination: [] The patient is a tall, male who appears fit for his stated age and wears glasses and is casually dressed and groomed with good hygiene. He has no psychomotor agitation or retardation and is ambulatory with a normal gait. He is cooperative and pleasant during the interview. Eye contact is good and speech is normal rate and rhythm and fluent with no pressure. Mood is depressed. Affect is mildly constricted. Thought process is goal-directed and organized. Thought content: There is no evidence of passive thoughts of , suicidal ideation, homicidal ideation, plan for suicide, hallucinations or delusions. Anxiety overworking is still present but possibly somewhat slightly less. Reality testing is intact. Judgment is intact. Insight is fair. Impulsivity is moderate. Diagnoses: [] 1. Major depressive disorder, recurrent, severe without psychosis 2. OCD 3. Tourette's syndrome 4. Work, financial and primary support issues Plan: [] The patient will continue the OP and behavioral health at [facility] as the structure, support, education and group therapy will hopefully prevent worsening of the patient's symptoms which could require hospitalization. He felt safe during the interview and if it anytime he does not feel safe he agrees to let us know or go to the emergency room. The risks, options, possible complications and side effects of the medications and weaning them were again discussed with the patient and he understands and accepts these. He agrees to decrease his Prozac to 20 mg every other day for 1 week and then to discontinue it. He will continue the Trintellix at the current dose. I will see the patient in follow-up in 2 weeks and he will continue to follow-up with his outpatient providers. He can will continue to decrease and eliminate his 1 energy drink.
--- NOTE | 2023-10-30 09:00 | BH.SGPN.GN ---
Behaviors/Verbalizations/Mental Status: [] Client alert and oriented, casual appearance. Eye contact fair. Motor activity appropriate. Speech within normal limits. Affect constricted, mood anxious and dysthymic. Thoughts linear, logical, no signs of hallucinations or delusions. Reviewed client's symptom tracker, no risk for suicidal ideation, plan, or intent. Client Response/Progress/Benefit: [] Client responded well to session AEB listening to others and sharing thoughts/feelings. Client reported continued stressor is not having a car since his transmission went out. Client stated he plans to have a discussion with his parents over the weekend about getting his car fixed. Client expressed feeling worried that he won't be able to start his new job if he doesn't have a car. Client receptive to group feedback and support about talking to his parents about borrowing a car so he can start his job and make money to help fix his car. Client stated he is trying to remain positive, but is worried because his dad can often not be supportive of client. Client appeared to benefit from support from peers. Will continue IOP tx to improve distress tolerance, increase consistent use of healthy coping skills, and prevent decompensation. Narrative Note: []
--- NOTE | 2023-10-30 10:10 | BH.SGPN.GN ---
Behaviors/Verbalizations/Mental Status: []Pt alert and oriented, casually dressed and groomed. Eye contact good. Motor activity appropriate. Speech within normal limits. Affect congruent, mood euthymic. Thoughts linear, logical, no signs of hallucinations or delusions. ? Client Response/Progress/Benefit: []Pt responded well to session, attentive and engaged. Pt participated in activity where pts had to guess the celebrity with a known mental health diagnosis and this led to discussion on self-stigma. Group participated in the discussion defining stigma as well as what stigma has kept pt's from doing in their lives. Pt stated mental health stigma has led pt to not being confident in himself and ultimately giving up. Pt worked with peers to begin discussion of what reinforces stigma and this was discussed further in the next group. Pt appeared to benefit from learning about the different types of stigma as well as gaining awareness of how stigma as personally impacted pt. Pt will continue in IOP tx to promote mood stability, promote skills application, and prevent decompensation. Narrative Note: []
--- NOTE | 2023-10-30 14:47 | BH.MDN ---
Multi-Disciplinary Note Note 30-min Individual: Time Started:: 11:15 Date: 10/30/23 Purpose of session/treatment goals addressed:: Purpose of session was to address goals 1 and 2 from [facility]. Eye Contact:: Fair Motor Activity:: Appropriate Appearance:: Casual Speech:: Appropriate Mood:: Euthymic and Anxious Affect:: Congruent Thoughts:: Linear, Logical and No evidence of hallucinations/delusions noted Staff Interventions:: thought challenging, CBT techniques, rapport building, strengths perspective, goal setting and taught coping skills (grounding object) Client Response:: Client reported he is feeling a little anxious about starting his new job next week. Client reported he is also excited to get back to work because it has been over a year since he has worked. Client stated he is having worries about being a failure if he doesn't make it to his first day or if he can't maintain the job. Client reported his dad puts a lot of pressure on client and when client doesn't do well his dad will tell him that client is a failure and worthless. Client stated this pressure adds to his anxiety and becomes a anxious loop. Client reported he is having anxious thoughts that he won't be smart enough to complete his job tasks. Client open to thought challenge with assistance of therapist. Client stated he does have a walk through of his new workplace on Thursday, which he thinks can help decrease some of his anxiety about the unknown. Therapist encouraged client to practice his calming anxiety skills over the weekend by intentionally exposing himself to a situation that triggers his anxiety. Client stated he thinks it would be helpful to drive to his workplace this weekend to sit in the parking lot and to find where he would park on Thursday. Client reported he will plan to sit in the parking lot for 15 minutes to give himself time to practice using his skills. Therapist reviewed healthy calming skills with client including breathing and grounding tools. Therapist encouraged client to find a small tactile object that he can keep in his pocket that he could use while at work to help ground himself. Risks/Concerns:: Denies active suicidal ideation, plan, or intention to date. future oriented. Progress Toward Goals/Plan:: Progress noted with client reporting increased motivation to get back to work and decreased anxiety. Client agreeable to work on small anxiety exposure goal this weekend to help prepare self for his first day of work. Client has added stressor of his car breaking this week, but he stated is hoping to resolve this over the weekend with his parents. Client is to continue IOP to help with transition back to work, challenge negative/distorted thoughts, reduce anxious avoidance, and prevent decompensation. Time Stopped:: 11:45
--- NOTE | 2023-11-03 09:00 | BH.SGPN.GN ---
Behaviors/Verbalizations/Mental Status: [] Eye contact fair to good, pt looking down as other participants shared however made eye contact when his turn. Motor activity appropriate. Speech within normal limits. Affect congruent, mood depressed, agitated. Thoughts linear, logical, no signs of hallucinations or delusions. Reviewed client?s symptom tracker, denies SI, plan, or intent as of 11/03/2023. Client Response/Progress/Benefit: [] Client receptive of session, attentive and willing to process with group. Reports slight worsening sx of depression?(3/5), anxiety (4/5), and agitation (5/5) per daily sx tracker. ?Identified mental health ?win as successfully using opposite action to follow-through with attending IOP group this morning as he did not want to due to not wanting to get out of bed. Pt reports he reminded himself that he does not want to continue to continue to feel the way he is feeling and the only way for things to change is to begin making changes. Reports he struggles with being ?stubborn? which has impeded his willingness to make changes in the past but he feels more ready to do so now. Identified an additional win as challenging himself to utilize thought challenging practices more recently, as he has experienced several stressors over the past few days, specifically ongoing car issues preventing pt from being able to take the job he was supposed to start tomorrow. Described initial thoughts of worthlessness, but has been trying to reframe these and focus on taking the time he needs to ensure his mental health has been consistently stable for him to be able to pursue employment once able to do so again. Benefitted from encouragement and support of the group. Recommended continued IOP tx to further maintain mood stability, promote consistent skill application, well as prevent decompensation. Narrative Note: []
--- NOTE | 2023-11-04 09:06 | BH.MDN_ITS ---
Multi-Disciplinary Note Note 30-min Individual: Time Started:: 09:08 Date: 11/04/23 Purpose of session/treatment goals addressed:: address goals 1 and 2 from [facility] Eye Contact:: Good Motor Activity:: Appropriate Appearance:: Casual Speech:: Appropriate Mood:: Euthymic and Anxious Affect:: Full Thoughts:: Linear Staff Interventions:: thought challenging, CBT techniques, mindfulness skills and taught coping skills Client Response:: Client reported improvement from yesterday with decrease in anxiety, depression, and agitation. Client discussed that he was discharged from hospital yesterday with a safety plan in place. This worker and client r eviewed safety plan and distress tolerance skills he identified to utilize. Client reported how when he gets anxious and depressed his initial reaction is to flee. Client made plan to take a break during these times to utilize coping skills with intention to return. Therapist reviewing deep breathing, 5 senses, and guided meditation with Client. Risks/Concerns:: Denies active suicidal ideation, plan, or intention to date. future oriented. Progress Toward Goals/Plan:: Decompensation noted with client going to ER yesterday w/ suicidal ideation. Client agreeable to work on utilizing coping skills to avoid fleeing when experiencing heighted anxiety/depression. Client reported stress of breaking up with his girlfriend, however, identified other supports in place. Client is to continue IOP to challenge negative/distorted thoughts, reduce anxious avoidance, and increase functioning. Time Stopped:: 09:40
--- NOTE | 2023-11-04 10:15 | BH.SGPN.GN ---
Behaviors/Verbalizations/Mental Status: [] Eye contact is good. Motor activity is appropriate. Appearance is casual. Speech is Appropriate. Mood is content, anxious. Affect is congruent. Thoughts are linear and logical. No evidence of psychosis. Client Response/Progress/Benefit: [] Pt receptive to session AEB contributing to group discussion, as well as listening attentively to others, and taking notes. Worked with group to brainstorm the positive and negative aspects of stress on physical and mental health as well as the impact of distress on performance, relationships, and mental health. Pt shared their top stressors to be: worry about other's problems, finances, and interpersonal relationship issues. Shared when feeling overwhelmed with stress pt tends to shut down, isolate, and become more irritable. Benefited from increased awareness of positive and negative stress as well as how stress impact individuals. Will continue in IOP to promote use of healthy coping skills, improve mood stability, and prevent decompensation. Narrative Note: []
--- NOTE | 2023-11-04 11:15 | BH.SGPN.GN ---
Behaviors/Verbalizations/Mental Status: [] Pt alert and oriented, casually dressed and groomed. Eye contact good. Motor activity appropriate. Speech within normal limits. Affect congruent, mood euthymic, Thoughts linear, logical, no signs of hallucinations or delusions. Client Response/Progress/Benefit: [] Pt was an attentive and active participant in group discussions and experiential activity, doing well to regulate their emotions throughout the activity and work with peers. Attentive during psychoeducation on the 4 A's (Avoid, adapt, alter, accept) of coping with stress. Shared that they would benefit most from altering with choosing a different route that 's healthier when it comes to helping others and himself. Was able to identify the connection between the experiential activity and utilization of stress management skills. Benefited from increased awareness of stress management strategies. Pt will continue IOP tx to prevent decompensation, improve daily functioning, and increase distress tolerance. Narrative Note: []
--- NOTE | 2023-11-06 09:00 | BH.SGPN.GN ---
Behaviors/Verbalizations/Mental Status: [] Eye contact good. Motor activity appropriate. Speech within normal limits. Affect congruent, mood anxious. Thoughts linear, logical, no signs of hallucinations or delusions. Reviewed client?s symptom tracker, denies SI, plan, or intent as of 11/06/2023. Client Response/Progress/Benefit: [] Client receptive of session, attentive and willing to process with group. Reports improved sx of depression?(3/5) and ongoing anxiety (4/5), ongoing agitation (4/5) per daily sx tracker. ?Identified mental health ?gunjan as taking steps to address a conflict with his cousin. Reports that it went better than he had expected and he was able to regulate his emotions without becoming irritable. Shared they were able to come to an understanding and pt left feeling glad that he had the conversation. Additional gunjan noted as attending a new taoism with his brother and soon to be [id number]. Pt shared that this was a positive as it allowed him to reconnect with his greg, as well as build the relationship with his family. Pt noted a current stressor as ending the relationship with his girlfriend last night. Shared that overall he feels this was a healthy choice but is worried it is going to hit me emotionally in a few days. Did well to identify a coping plan should he begin to struggle over the weekend. Benefitted from encouragement, suggestions, and support of the group. Recommended continued IOP tx to further improve mood stability, promote improved distress tolerance, well as prevent decompensation. Narrative Note: []
--- NOTE | 2023-11-06 10:10 | BH.SGPN.GN ---
Behaviors/Verbalizations/Mental Status: [] Eye contact is good. Motor activity is appropriate. Appearance is casual. Speech is Appropriate. Mood is euthymic. Affect is congruent. Thoughts are linear and logical. No evidence of psychosis. Client Response/Progress/Benefit: [] Client was an active participant during interactive group discussions. Attentive during psychoeducation on the six types of boundaries (physical, emotional, intellectual, sexual, time, and material) AEB note-taking and input. Along with peers contributed to interactive discussion on defining what a boundary is in mental health. Client along with peers identified challenges to setting boundaries which included; fear of other's response, wanting to people please, fear of rejection, losing relationships, etc. Client report that need to people please has been the biggest challenge he has faced with setting boundaries. Client along with peers identified the benefits to setting boundaries such as better mental health, strengthen relationships, increased time for self-care, and increased confidence. Group discussed the mental health benefits to establishing boundaries at work, school, and home. Client benefited from increased awareness and insight on the importance/benefit to setting health boundaries. Will continue in IOP to prevent decompensation, stabilize anxiety, and increase distress tolerance. Narrative Note: []
--- NOTE | 2023-11-06 11:10 | BH.SGPN.GN ---
Behaviors/Verbalizations/Mental Status: [] Eye contact is good. Motor activity is appropriate. Appearance is casual. Speech is Appropriate. Mood is euthymic. Affect is congruent. Thoughts are linear and logical. No evidence of psychosis. Client Response/Progress/Benefit: [] Client responded well to session AEB listening attentively to peers, providing input, as well as taking notes throughout. Reports connecting most with porous style of boundary setting, identifying being a people please and will put others feelings above his own. Participated in group discussion brainstorming various strategies for improving healthy boundary setting. Client reports wanting to begin using assertive communication to set firm boundaries. Seemed to benefit from increased awareness of how different boundary styles can impact mental health. Will continue IOP tx to increase consistent application of skills, increase skill to enhance emotional regulation and prevent decompensation. Narrative Note: []
--- NOTE | 2023-11-10 09:05 | BH.SGPN.GN ---
Behaviors/Verbalizations/Mental Status: [] Eye contact is good. Motor activity is appropriate. Appearance is casual. Speech is Appropriate. Mood is depressed/irritable. Affect is congruent. Thoughts are linear and logical. No evidence of psychosis. Reviewed daily check in sheet and no reports of suicidal ideations or intent. Client Response/Progress/Benefit: [] ?Pt participated at times during the group discussion. Attentive. Daily symptom tracker notes 4/5 for irritability and 3/5 for depression. Pt admits to struggling in the past week which was triggered by frustration related to his car. Car issues resulted in inability to start a job as well as increased isolation due to ? not having a car to go anywhere?. ?I?m stuck at home?. His frustration last week resulted in impulsive decisions such as breaking up with his GF. Increased irritability and feels like a burden to people. Limited insight regarding his low frustration tolerance and acute reactions based on feelings. Despite stressors he presents in good spirits and is smiling and engaged with peers. Limited progress noted. Benefited from group support, encouragement, and feedback. Will continue in IOP to maintain safety, stabilize mood, increase healthy coping, and improve functioning Narrative Note: []
--- NOTE | 2023-11-10 10:10 | BH.SGPN.GN ---
Behaviors/Verbalizations/Mental Status: [] Eye contact is good. Motor activity is appropriate. Appearance is casual. Speech is Appropriate. Mood is content. Affect is congruent. Thoughts are linear and logical. No evidence of psychosis. Client Response/Progress/Benefit: [] Client receptive to session AEB listening attentively to others and taking notes. Pt attentive and contributing throughout psychoeducation on the cognitive triangle and maintenance cycles. Pt engaged during group discussion reviewing the impact of daily activities and behaviors in either reinforcing unhealthy maintenance cycles and depression or assisting in reducing symptoms (?down? vs ?up? activities). Client identified personal ?down? activities they engage in as: isolating, sleeping excessively, task avoidance, and scrolling on phone. Attentive during discussion on Common ?Up? activities client identified theirs to include: sunlight, encouraging music, movement, social programs. Appeared to benefit from increased awareness of current behaviors and impact these have on mental health. Will continue IOP to stabilize mood, improve functioning, prevent decompensation. Narrative Note: []
--- NOTE | 2023-11-10 11:30 | BH.MDN ---
Multi-Disciplinary Note Note 30-min Individual: Time Started:: 11:30 Date: 11/10/23 Purpose of session/treatment goals addressed:: Reviewed current symptoms and progress in treatment. Utilized the session to introduce low frustration tolerance and begin to develop a type of exposure/fear ladder to build frustration tolerance. Eye Contact:: Good Motor Activity:: Appropriate Appearance:: Casual Speech:: Appropriate Mood:: Anxious Affect:: Congruent Thoughts:: Linear, Logical and No evidence of hallucinations/delusions noted Staff Interventions:: psychoeducation on: (Low Frustration Tolerance) Client Response:: Pt briefly discussed crisis assessment at [facility] ER on 11/04/23. Pt left IOP that morning and went to the ER. He stated he just needed additional reassurance and was extremely frustration with a stressor that occurred that morning (car issues). He was never suicidal and after being assessed in the ER was discharged. The plan was to increased level of care to PHP however pt wishes to remain at current IOP level. Admits that when presented with an obstacle to a goal (frustration) he struggles to cope often lashing out and walking away (fight of flight). Introduced low frustration tolerance to patient. He connected to all criteria of LFT stating yeah that's me and gave example of over-reacting to everyday stressors (car issues, waiting in line, etc). Pt was given handout and encouraged to read and seek additional information regarding LFT. Risks/Concerns:: Denies suicidal ideations, plan, or intent. Progress Toward Goals/Plan:: Pt's car is still in the shop which limits his ability to start a job or leave the house which has increased frustration. Smiling and engaged in IOP throughout the day and reports feeling much better than last week. Admits that he catastrophized last week and he does this often. He does well processing events after the fact and is able to identify ways to reframe/challenge distortions as well as calming skills he could have used, however struggles in the moment. We are going to begin to work on building [id number] frustration tolerance. He was given task to read handout, write down calming skills, and identify mildly frustrating events. Goal is to expose him to mild frustration and practice skills. Time Stopped:: 12:00
--- NOTE | 2023-11-11 11:00 | BH.COMM ---
Communication Note Communication with Client Communication Note: Pt cancelled IOP this AM due to illness.
--- NOTE | 2023-11-11 14:00 | BH.TPR ---
Treatment Plan Review Demographics Date of Admission:: 10/12/23 Date of Treatment Plan Review:: 11/11/23 Admitting Diagnoses:: 1. Major depressive disorder, recurrent, severe without psychosis 2. OCD 3. Tourette's syndrome Current Diagnoses:: 1. Major depressive disorder, recurrent, severe without psychosis 2. OCD 3. Tourette's syndrome Patient Status Patient's Response to Treatment:: No progress noted at 4 week review. Slight improvement during the first 2 weeks of IOP however since then pt displayed decompensation in large part to psychosocial stressors related to his car. Staff have identified a very low frustration tolerance with patient. Struggles to cope with any obstacle in his routine (Car issues, waiting in lines, irritability, etc.). When presented with frustration pt will often lash out or avoid. His recent car issues led to his inability to start a new job which triggered frustration, negative thoughts, and emotion dysregulation. When I can't fix a problem right away I get very inpatient. Car issues, not being able to start job, and his inability to cope with this led to pt presenting to the ER on 11/04/23 for passive thoughts of . Was assessed and sent home as he was not suicidal. Attendance has been inconsistent throughout the program which has also impacted progress. Struggles to wake up in the AM. Hx of poor follow-through with IOP. Status of Current Problems and Symptoms: Outcomes show a 28% increase in symptoms since admission. Since admission outcomes show a 14% increase in the depression domain, no change in the anger domain, and a 60% increase in the anxiety domain. Outcomes indicate no suicidal ideations or thoughts of hurting himself in the past 2 weeks. During counseling session on 11/10/23 he reports feeling better and admitted to catastrophizing stressors which led to decompensation. He does well processing events after the fact and is able to identify ways to reframe/challenge distortions as well as calming skills he could have used, however struggles in the moment. Plan is to begin to work on building [id number] frustration tolerance. He was given task to read handout, write down calming skills, and identify mildly frustrating events. Goal is to expose him to mild frustration and practice skills. He was also scheduled to meet with psychiatrist today to review meds for possible increase, however he did not show. Progress Problem #1: Problem Name:: Depression Status of Goals:: According to outcomes pt's depression has increased since admission. Obj1- Not complete; pt is able to identify healthy coping skills however struggles with utilizing and implementing these skills. Obj2- Incomplete; Able to recognize cog, distortions with assistance from staff. Able to verbalize reframing/challenging skills however struggle to use these independently. Team Recommendations:: Plan is to focus on pt's low frustration tolerance which appears to be the biggest trigger to decompensation for anxiety as well as depression. Problem #2: Problem Name:: Anxiety Status of Goals:: Pt's anxiety has increased since admission Obj1- Incomplete- original plan was to identify small exposure goals to transition to work environment. Discussions on volunteering opportunities as slow start. Pt however obtained a FT job which he has been unsuccessful at numerous times over the past several years. He continued to apply and interview for jobs w/o addressing underlying MH struggles. Obj2- Complete- pt can idetnify coping skills for anxiety, however again struggles with independently using these skills. Team Recommendations:: Plan is to focus on pt's low frustration tolerance which appears to be the biggest trigger to decompensation for anxiety as well as depression.
--- NOTE | 2023-11-12 10:54 | BH.COMM ---
Communication Note Communication with Client Communication Note: Cancelled IOP again today due to illness. Second time this week. Inconsistent attendance which is impacting progress.
--- NOTE | 2023-11-13 11:00 | BH.COMM ---
Communication Note Communication with Client Communication Note: no call/ no show for IOP today
--- NOTE | 2023-11-17 08:02 | BH.COMM ---
Communication Note Communication with Client Communication Note: Pt did not show for 3 IOP sessions last week. He has not returned calls. Will be discharged today.
--- NOTE | 2023-11-17 08:03 | BH.DS ---
Discharge Summary Demographics Date of Admission:: 10/12/23 Discharge Date: 11/17/23 Presenting Problems at Admission:: Pt is a 38 year old male. Hx of Major Depressive Disorder, recurrent, severe, w/o psychotic features; OCD; and Tourette's Syndrome. Hx of previous psychiatric admission to [facility] in 09/2022 due to suicidal ideations and anger outburst. Pt has participated in [facility] on two different occasions, however has never successfully completed the program. Referred to IOP by her outpatient psychiatric nurse practitioner due to worsening depression, significant isolation, anxiety, and avoidance. According to pt he is sleeping between 12-14 hours a day due to his depression. All I do is sleep and sit in bed all day. Pt reports that he sleeps excessively to cope with and/or escape depression/negative thoughts. Endorses low energy, low motivation, hopelessness, worthlessness, anhedonia, and isolation. Denies active suicidal ideations, plan, or intent. No hx of attempts. Long-standing fleeting suicidal ideations. Endorses passive thoughts of and survival ambivalence. Everyone would be better off without me. Has been unable to maintain employment due to anxiety and low frustration tolerance. 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 I can't keep a job. Severe anxiety, panic, and fear of failure result in calling off or not showing up to work. I make myself sick. Pt relies on his parents for housing and finances which leads to feelings of being worthless. Denies HI or psychosis. Denies substance abuse. Family hx of depression (mother, maternal GMA, and sister). Discharge Diagnoses:: 1. Major depressive disorder, recurrent, severe without psychosis 2. OCD 3. Tourette's syndrome Reason for Discharge:: Inconsistent attendance. Pt did not show or called off for 3 consecutive days. Attempts to reach out and discuss obstacles and re-engage were unsuccessful. Will be discharged w/o completion of the program. Missed scheduled appt with program psychiatrist on 11/11/23 for medication management as well. Treatment Progress During Treatment & Response: No progress noted at 4 week review. Slight improvement during the first 2 weeks of IOP however since then pt displayed decompensation in large part to psychosocial stressors related to his car. Staff have identified a very low frustration tolerance with patient. Struggles to cope with any obstacle in his routine (Car issues, waiting in lines, irritability, etc.). When presented with frustration pt will often lash out or avoid. His recent car issues led to his inability to start a new job which triggered frustration, negative thoughts, and emotion dysregulation. When I can't fix a problem right away I get very inpatient. Car issues, not being able to start job, and his inability to cope with this led to pt presenting to the ER on 11/04/23 for passive thoughts of . Was assessed and sent home as he was not suicidal. Attendance has been inconsistent throughout the program which has also impacted progress. Struggles to wake up in the AM. Hx of poor follow-through with IOP. Issues Still to be Addressed:: Outcomes show a 28% increase in symptoms since admission. Since admission outcomes show a 14% increase in the depression domain, no change in the anger domain, and a 60% increase in the anxiety domain. Outcomes indicate no suicidal ideations or thoughts of hurting himself in the past 2 weeks. During counseling session on 11/10/23 he reports feeling better and admitted to catastrophizing stressors which led to decompensation. He does well processing events after the fact and is able to identify ways to reframe/challenge distortions as well as calming skills he could have used, however struggles in the moment. Plan is to begin to work on building [id number] frustration tolerance. He was given task to read handout, write down calming skills, and identify mildly frustrating events. Met with pt on 11/10/23 and a goal was developed to expose him to mild frustrations to increase ability to work on in the moment skills however he never returned. Discharge Recommendations/Instructions:: Encouraged to follow up with claims attorney Alycia Tanner and therapist Stanley. Discharge Handout
== END 2023-11-17 11:14 | disposition home or self-care (01) ==
LOC: BHIOP 07:15
PROVIDERS: PCP Student in an Organized Health Care Education/Training Program; Referring Provider Psychiatry & Neurology Psychiatry; Visit Provider Psychiatry & Neurology Psychiatry
DX: F33.2 Major depressive disorder, recurrent severe without psychotic features (principal); F42.9 Obsessive-compulsive disorder, unspecified; F95.2 Tourette's disorder; Z79.899 Other long term (current) drug therapy
CPT/HCPCS: 99213; H2012; H2020; S9480; 90832

== ENCOUNTER 2023-11-03 10:21 | Emergency (ER) | payer MEDICAID, SELFPAY ==
[2023-11-03 10:22] VITALS: BP 164/99; PULSE 71; RESP 15; TEMP 36.7; O2SAT 100; BMI 25.7
--- NOTE | 2023-11-03 10:44 | ED.RN ---
PATIENT STATES HE FEELS SUICIDAL BUT DOES NOT HAVE A PLAN. ROOM CLEARED FOR SAFETY. CLOTHES AND BELONGINGS BAGGED. SITTER AT BEDSIDE
[2023-11-03 11:11] LABS: Absolute Neutrophil Count 3.3 X10^3/uL (2.0-7.7); Basophil# 0.07 X10^3/uL; Basophil% 1.1 % (0-1); Eosinophil# 0.15 X10^3/uL; Eosinophils% 2.4 % (0-5); Hematocrit 42.9 % (40-54); Hemoglobin 14.7 g/dL (13.0-16.5); Lymphocyte % 38.1 % (19-41); Mean Corp Hgb Conc 34.3 g/dL (32-36); Mean Corpuscular Hgb 28.5 pg (27.0-32.0); Mean Corpuscular Volume 83.1 fL (80-94); Mean Platelet Vol. 11.2 fl (6.2-12.0); Monocyte# 0.35 X10^3/uL; Monocyte% 5.6 % (0-10); NRBC Flagged by Analyzer 0 % (0-5); Neutrophil # 3.32 X10^3/uL (2.7-7.7); Neutrophil % 52.6 % (47-70); Platelet Count 215 K/mm3 (150-450); RBC Distribution Width CV 12.5 % (11.6-14.6); RBC Distribution Width SD 37.5 fl (35.1-43.9); Red Blood Count 5.16 M/mm3 (4.6-6.2); White Blood Count 6.3 K/mm3 (4.4-11.0)
[2023-11-03 11:22] VITALS: BP 158/98; PULSE 88; RESP 18; O2SAT 98
--- NOTE | 2023-11-03 11:26 | EX.ED.VIS.PS ---
HPI HPI - Psych History of Present Illness Chief Complaint: Suicidal Informant: patient Narrative Narrative: 33-year-old male presenting to the emergency room with suicidal ideation. Patient states he was hospitalized last year for depression in [place]. He has been currently seeing a psychiatrist through [facility] as well as [facility] IOP program. States that 3 weeks ago he was weaned off of Prozac and started on low-dose Trintellix. He states that he continues to have suicidal thoughts and feels worthless due to still living at home and not having a job. He states he has no particular plan of suicide just that he is not feeling any better. He is wondering if he needs to be hospitalized. No homicidal thoughts. [facility] Medical History PTSD (post-traumatic stress disorder) OCD (obsessive compulsive disorder) Major depressive disorder, recurrent severe without psychotic features Tourettes syndrome Murmur Physical exam, pre-employment Home Medications ?Medication ?Instructions ?Recorded ?Last Taken ?Type clonazepam 0.5 mg tablet (Klonopin) 0.5 mg PO DAILY PRN Anxiety 07/13/21 Unknown History fluphenazine HCl 5 mg tablet 10 mg PO DAILY 06/26/23 Unknown History vortioxetine 5 mg tablet 5 mg PO DAILY 30 days #30 tabs 10/28/23 Unknown Rx (Trintellix) Allergy/AdvReac Type Severity Reaction Status Date / Time amoxicillin Allergy Hives Verified 11/03/23 10:25 prednisone AdvReac Mild PALPITATION Verified 11/03/23 10:25 S Surgical History History of tonsillectomy and adenoidectomy History of hernia repair Social History Smoking Status: Never smoker ROS ROS ED Constitutional Constitutional ED: Denies chills, fever(s) or weight loss Eyes Eyes: Denies change in vision or diplopia ENT ENT ED: Denies ear pain, rhinorrhea or sore throat Cardiovascular Cardiovascular: Denies chest pain, orthopnea, palpitations or racing heartbeat Respiratory/Chest Respiratory/Chest: Denies cough, dyspnea or orthopnea Gastrointestinal Gastrointestinal: Denies abdominal pain, diarrhea, nausea or vomiting Genitourinary Genitourinary ED: Denies dysuria, hematuria or urinary frequency Musculoskeletal Musculoskeletal: Denies arthralgias or myalgias Integumentary Denies abscess or rash Neurologic Neurologic: Denies headache(s) or weakness Psychiatric Psychiatric: Reports anxiety, depression, suicidal ideation and suicidal thoughts Endocrine Endocrinology: Denies polydipsia, polyphagia or polyuria Allergic/Immunologic Allergic/Immunologic ED: Denies mouth swelling, tongue swelling or urticaria EXAM Physical Exam Const Vital Signs: 11/03/23 10:22 11/03/23 11:22 11/03/23 13:57 Temperature 98.1 F 97.6 F L Temperature Source Temporal Pulse Rate 71 88 72 Respiratory Rate 15 18 16 Blood Pressure 164/99 H 158/98 H 131/76 H Blood Pressure Mean 120 118 94 Pulse Ox 100 98 99 Oxygen Delivery Method Room Air Room Air Positive well nourished and well developed General Appearance ED: well developed and NAD HEENT Reports normocephalic, head/scalp atraumatic and moist mucous membranes Eyes PERRL and EOMs intact bilaterally Neck no lymphadenopathy, supple and no JVD Resp normal respiratory effort and clear to auscultation bilaterally Cardio regular rate, regular rhythm and no murmurs GI normal to inspection, nondistended, normoactive bowel sounds and non-tender Palpation: soft Back/Spine no CVA tenderness and normal ROM Extremity normal to inspection General Extremety ED: Negative for edema General Extremity: Negative for edema Neuro oriented x3 and CN's II-XII intact bilaterally Sensorium / Orientation: alert Motor Exam: strength 5/5 throughout Psych mental status grossly normal, cooperative and activity/motor behavior normal Appearance: grossly normal Attitude: calm Activity / Motor Behavior: appropriate eye contact; Negative for psychomotor agitation or psychomotor slowing Speech: normal speech Mood & Affect: flat affect; Negative for tearful Thought Process: normal thought process Thought Content: suicidality, No homicidality, No delusion(s) and No hallucination(s) Attention / Concentration: attention grossly intact Memory / Cognition: memory grossly intact Skin no rashes or lesions noted and no wounds MDM MDM MDM Narrative Medical decision making narrative: Differential diagnosis includes but not limited to depression and suicidal ideation anxiety medication reaction. Psychiatric clearance was obtained. Toxicology is negative. Basic blood work shows a normal creatinine normal liver enzymes glucose 98 patient's not anemic patient was assessed by crisis. Patient has no specific plan. On crisis interview the patient is wanting to switch programs which I think is reasonable if he feels like it will help him. I do not feel strongly needs to be hospitalized. He just had a medication change and he is willing to contract for safety and has demonstrated good follow-up. He will be discharged home History & Record Review Discussion w/independent historian: Patient Lab Data Attestation: I reviewed the patient's lab results. Labs: Laboratory Results - last 24 hr 11/03/23 11/03/23 10:40 11:00 WBC 6.3 RBC 5.16 Hgb 14.7 Hct 42.9 MCV 83.1 MCH 28.5 MCHC 34.3 RDW Std Deviation 37.5 RDW Coeff of [place] 12.5 Plt Count 215 MPV 11.2 Immature Gran % (Auto) 0.200 Neut % (Auto) 52.6 Lymph % (Auto) 38.1 [place] % (Auto) 5.6 Eos % (Auto) 2.4 Baso % (Auto) 1.1 H Absolute Neuts (auto) 3.3 Absolute Lymphs (auto) 2.40 Nucleated RBC % 0 Sodium 138 Potassium 3.4 L Chloride 105 Carbon Dioxide 27.0 Anion Gap 6 BUN 19 H Creatinine 0.88 Estim Creat Clear Calc 141.41 Est GFR (MDRD) Af Amer 130 Est GFR (MDRD) Non-Af 107 BUN/Creatinine Ratio 21.6 H Glucose 98 Calcium 9.5 Total Bilirubin 0.40 Direct Bilirubin 0.10 AST 14 L ALT 29 Alkaline Phosphatase 66 Total Protein 7.4 Albumin 4.1 Globulin 3.3 Urine Opiates Screen NEGATIVE Urine Methadone Screen NEGATIVE Ur Barbiturates Screen NEGATIVE Ur Phencyclidine Scrn NEGATIVE Ur Amphetamines Screen NEGATIVE MDMA (Ecstasy) Screen NEGATIVE U Benzodiazepines Scrn NEGATIVE Urine Cocaine Screen NEGATIVE U Cannabinoids Screen NEGATIVE Ur Drug Screen Comment Ethyl Alcohol 4.0 Management Discussion w/another healthcare provider: Behavioral health (Crisis) Discharge Plan Triage Chief Complaint: Suicidal ED Provider: Willam Hsieh Dx/Rx/DC Orders Clinical Impression: Depression Instructions: CONTRACT, No Harm Prescriptions: No Action clonazepam [Klonopin] 0.5 mg tablet 0.5 mg PO DAILY PRN (Reason: Anxiety) fluphenazine HCl 5 mg tablet 10 mg PO DAILY Trintellix 5 mg tablet 5 mg PO DAILY 30 Days Qty: 30 1RF Rx Instructions: 1 po daily Primary Care Provider: David Irving Referrals: David Irving, [Primary Care Provider] - Activity Restrictions/Additional Instructions: Please follow-up with your psychiatrist and counselors as soon as possible Print Language: Yakut Disposition Disposition: Home, Self Care Discharge Date/Time: 11/03/23 13:58
[2023-11-03 11:30] LABS: Amphetamine Urine VISTA NEGATIVE (<1000 ng/mL); Barbiturate Urine VISTA NEGATIVE (< 200 ng/mL); Benzodiazepine Urine VISTA NEGATIVE (< 200 ng/mL); Cocaine Urine VISTA NEGATIVE (< 300 ng/mL); Ecstacy Urine VISTA NEGATIVE (< 500 ng/mL); Methadone Urine VISTA NEGATIVE (< 300 ng/mL); PCP Urine VISTA NEGATIVE (< 25 ng/mL); THC Urine VISTA NEGATIVE (< 50 ng/mL); Vista UDS pH Range 5
[2023-11-03 11:49] LABS: Anion Gap 6 (5-15); BUN 19 mg/dL (7-18); BUN/Creat Ratio 21.6 RATIO (10-20); Calcium,Total 9.5 mg/dL (8.5-10.1); Chloride 105 mmol/L (98-107); Creatinine, Serum 0.88 mg/dL (0.70-1.30); EST Glomerular Filtration Rate 107 mL/min (>60); Est Glom Filt Rate - Afr Amer 130 mL/min (>60); Estimated Creatinine Clearance 141.41 ml/min; Glucose 98 mg/dL (74-106); Potassium 3.4 mmol/L (3.5-5.1); Sodium Level 138 mmol/L (136-145)
[2023-11-03 12:14] LABS: AST(SGOT) 14 U/L (15-37); Alanine Aminotransfer ALT/SGPT 29 U/L (16-61); Albumin, Serum 4.1 g/dL (3.2-5.0); Alkaline Phosphatase 66 U/L (45-117); Globulin 3.3 g/dL (2.2-4.2); Protein, Total 7.4 g/dL (6.4-8.2)
[2023-11-03 13:57] VITALS: BP 131/76; PULSE 72; RESP 16; TEMP 36.4; O2SAT 99
== END 2023-11-03 13:58 | disposition home or self-care (01) ==
PROVIDERS: Emergency Provider Emergency Medicine; PCP Student in an Organized Health Care Education/Training Program; Visit Provider Emergency Medicine
DX: F32.A Depression, unspecified (principal); R45.851 Suicidal ideations
CPT/HCPCS: 36415; 80048; 80076; 80307; 82077; 85025; 99283

== ENCOUNTER 2024-05-05 14:43 | Outpatient (RCR) | payer MEDICAID, SELFPAY ==
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
--- NOTE | 2024-05-06 10:10 | BH.SGPN.GN ---
Behaviors/Verbalizations/Mental Status: []Pt alert and oriented, casually dressed and groomed. Eye contact good. Motor activity appropriate. Speech within normal limits. Affect congruent, mood anxious and depressed. Thoughts linear, logical, no signs of hallucinations or delusions. Client Response/Progress/Benefit: []Pt participated during small group discussions. Attentive during psychoeducation about defense mechanisms. Showed engagement during small group discussions and helped group identify which defense mechanisms were maladaptive, adaptive, or ?somewhere in the baltazar.? Pt worked with small group on identifying how each defense mechanism can impact mental health and gave examples. ?Seemed to benefit from gaining awareness about the different defense mechanisms. Pt to continue IOP tx to prevent decompensation, increase ability to manage anxiety, and reduce negative self-talk. Narrative Note: []
--- NOTE | 2024-05-06 11:10 | BH.SGPN.GN ---
Behaviors/Verbalizations/Mental Status: []Pt alert and oriented, casually dressed and groomed. Eye contact fair. Motor activity appropriate. Speech within normal limits. Affect congruent, mood anxious. Thoughts linear, logical, no signs of hallucinations or delusions. Client Response/Progress/Benefit: []Pt responded well to session, participating in activity and small group discussion. Group reviewed the rest of the defense mechanisms and discussed how these are adaptive, maladaptive, or somewhere in the baltazar. Pt's defense mechanisms included denial, humor, and rationalization. Pt stated he recognizes the negative impact his defense mechanisms can have on his mental health and often lead him to staying stuck. Pt listened to litharge supervisor teach different skills to help pt?s cope with or change their defense mechanisms. Pt appeared to benefit from gaining insight to the different defense mechanisms and learning coping skills. Pt will continue IOP tx to increase consistent use of healthy coping skills, challenge distortions, and prevent decompensation.
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
--- NOTE | 2024-05-09 06:24 | PCM.BH.PSYEV ---
Psychiatric Evaluation Initial Evaluation Initial Evaluation: Initial Treatment Plan Patient Information Visit Information: ADMISSION DATE: 05/06/2024 EXPECTED LOS: 4-6 weeks Problems/Symptoms Problem #1:: Depression Symptom:: Sadness, worthlessness, hopelessness, hypersomnia, low motivation, passive thoughts of , anhedonia Problem #2:: Anxiety Symptom:: Worry, rumination, panic attacks, avoidance
--- NOTE | 2024-05-09 09:00 | BH.SGPN.GN ---
Behaviors/Verbalizations/Mental Status: [] Eye contact is good. Motor activity is appropriate. Appearance is casual. Speech is Appropriate. Mood is depressed. Affect is flat. Thoughts are linear and logical. No evidence of psychosis. Reviewed daily check in sheet and no reports of suicidal ideations or intent Client Response/Progress/Benefit: [] Pt participated at times during the group discussions. Attentive. Shared with the group that he got up early and ate breakfast this morning. Elaborated on how this was beneficial to his mental health. He also shared that he was able to utilize anger management skills yesterday. Insight that small decisions can have significant impact on his mental health and relationships. Reports being depressed today. [place] a mu-ism friend . Briefly shared his relationship with this friend and the impact his will have on him. Group normalized grief which was beneficial. Progress noted. Will continue in IOP to maintain safety, stabilize mood, and improve functioning. Narrative Note: []
--- NOTE | 2024-05-09 10:10 | BH.SGPN.GN ---
Behaviors/Verbalizations/Mental Status: []Eye contact is fair. Motor activity is appropriate. Appearance is casual. Speech is Appropriate. Mood is depressed. Affect is congruent. Thoughts are linear and logical. No evidence of psychosis. Client Response/Progress/Benefit: [] Pt was an active participant in group discussions. Attentive during psychoeducation. Contributed during interactive discussions in which peers attempted to define crisis. Group identified crisis examples. Group also worked together to identify warning signs and unhealthy responses to crisis which included shutting down, isolation, avoidance, over-thinking, disordered eating, and self-harm. Pt identified top 3 warning signs as: feeling on edge, lashing out, and isolation. Benefited from increased understanding of crisis and awareness of personal responses to crisis. Pt will continue IOP tx to prevent decompensation, increase distress tolerance, and improve ability to function. Narrative Note: []
--- NOTE | 2024-05-09 11:10 | BH.SGPN.GN ---
Behaviors/Verbalizations/Mental Status: []Pt alert and oriented, appropriate grooming/appearance. Eye contact good. Motor activity appropriate. Speech within normal limits. Affect congruent, mood anxious. Thoughts linear, logical, no signs of hallucinations or delusions. Client Response/Progress/Benefit: []Pt was an active participant in group discussions. Attentive during psychoeducation. In small group pt along with peers developed an active plan for their crisis warning signs. Pt identified three crisis warning signs as well as an action plan for each. One crisis warning sign was isolation. Pt identified strategies to help with this such as: opposite action, spending time with brother, being active, and changing environment. Benefited from increased awareness of crisis warning signs and by developing crisis intervention strategies. Will continue in IOP to decrease anxious avoidance, improve distress tolerance, and prevent decompensation.
--- NOTE | 2024-05-11 09:05 | BH.SGPN.GN ---
Behaviors/Verbalizations/Mental Status: [] Eye contact is good. Motor activity is appropriate. Appearance is casual. Speech is Appropriate. Mood is euthymic. Affect is congruent. Thoughts are linear and logical. No evidence of psychosis. Reviewed daily check in sheet and no reports of suicidal ideations or intent. Client Response/Progress/Benefit: [] Pt was an active participant in group discussions. Attentive. Did well to identify 2 mental health wins including being able to get to group today despite wanting to stay in bed as he got poor sleep yesterday. Identified use of opposite action. Additional win noted as completing several tasks this morning and not sleeping in until right before needing to leave as he would in the past. Current stressor noted as struggling with ongoing conflict within the relationship with his soon-to-be [id number]. Benefited from group support, encouragement, and feedback. Will continue in IOP to prevent decompensation, promote mood stability, and increase consistent use of healthy coping. Narrative Note: []
--- NOTE | 2024-05-11 10:10 | BH.SGPN.GN ---
Behaviors/Verbalizations/Mental Status: [] Pt alert and oriented, casually dressed and groomed. Eye contact good. Motor activity appropriate. Speech within normal limits. Affect congruent, mood content. Thoughts linear, logical, no signs of hallucinations or delusions. Client Response/Progress/Benefit: []Pt an active participant in group discussions on defining conflict (internal/external) and possible benefits to conflict. Attentive during psychoeducation on conflict styles (avoidant, accommodating, competing, cooperative) and engaged during group discussion in which peers identified the benefits and consequences to each conflict style. Pt identified that he tends to be avoidant with new people and competing with his family. Benefited from increased awareness of the impact of conflict styles in mental health. Will continue in IOP tx to prevent decompensation, stabilize mood, and improve functioning. Narrative Note: []
--- NOTE | 2024-05-11 11:10 | BH.SGPN.GN ---
Behaviors/Verbalizations/Mental Status: []Client alert and oriented, casually dressed and groomed. Eye contact good. Motor activity appropriate. Speech within normal limits. Affect congruent, mood dysthymic. Thoughts linear, logical, no signs of hallucinations or delusions. Client Response/Progress/Benefit: [] Pt engaged in session AEB contributing to discussion and engaging in small group. Attentive during discussion on strategies for more effectively managing conflict in personal life. Pt participated in small group for activity and did well practicing how to manage conflict scenarios. Pt given handout on fair fighting rules and how to identify common conflict barriers. Pt indicated what needs improvement in conflict for them which was to ?not yell and use degrading language? when addressing conflict. Appeared to benefit from gaining strategies to help Pt better manage conflict. Will continue IOP tx prevent decompensation, increase interpersonal effectiveness skills, and improve daily functioning. Narrative Note: []
--- NOTE | 2024-05-11 14:51 | BH.MTP ---
Master Treatment Plan Patient Information Program Physician:: Dr. Montanez Primary Therapist:: Faith Workman, [facility] Psychiatric Diagnoses Psychiatric Diagnoses:: MDD Severe recurrent no hallucinations, OCD, Tourette's Diagnosis Code(s):: F33.2 Estimated LOS Estimated LOS (in weeks):: 6 Problem/Goal #1 Problem/Goal #1 Stated Goal:: Client will increase mood stability and decrease depressive symptoms, anger/irritability, and anhedonia due to MDD through Intensive Outpatient Program. Description of Barriers: Historically client's anxiety has resulted in client not completing IOP on three different occasions. Client would start program and do well, but then his anxiety would lead him to not return mid-point. Additional potential barriers include: distorted thoughts, history of inconsistent treatment attendance, distorted thoughts, and anxious thoughts. Functional Impact: Patient admits to having 'High anxiety and severe depression. Also admits to having severe anger issues. Has been following with Alycia at [facility] for depression and irritability. Admits to feeling super sad and lost when feeling depressed. Admits that anxiety is to a point where I can't sit still. Feels like he can't seem to relax. Reports that he fidgets very frequently. Feels like he worries about the future. Has had been having panic attacks recently to the point where he is throwing up, starting about 2 weeks ago. Goal Relevant Strengths/Supports: Resilient, intelligent, and reports feeling motivated. Objectives Objective #1: Stated Objective: Client will learn and utilize 2-3 healthy coping strategies to manage depressive and anger symptoms. Interventions: Therapist will utilize CBT techniques to assist client with understanding the connection between thoughts, feelings and behaviors. Education will be provided on behavioral activation. Therapist will assist client in learning internal coping strategies to manage depressive symptoms, along with helping client identify triggers. Discharge Criteria: Client will have achieved this goal when can verbalize and has practiced at least 2 healthy coping strategies that successfully manage depressive symptoms. Target Date: 06/17/24 Review Date: 05/27/24 Objective #2: Stated Objective: Client will identify and replace 2-3 negative thinking patterns that reinforce feelings of hopelessness and worthlessness. Interventions: Through groups and individual therapy, pt will be provided with education on cognitive distortions, mistaken beliefs, and identifying and combating negative self-talk. Therapist will help pt explore connection between thoughts, feelings, and actions. Discharge Criteria: Pt will be able to identify 2-3 negative thinking patterns and be able to effectively stop, challenge, or cope with those negative thoughts. Target Date: 06/17/24 Review Date: 05/27/24 Problem/Goal #2 Problem/Goal #2 Stated Goal:: Client will reduce overall frequency, intensity, and duration of the anxiety so that daily functioning is not impaired.? Description of Barriers: Historically client's anxiety has resulted in client not completing IOP on three different occasions. Client would start program and do well, but then his anxiety would lead him to not return mid-point. Additional potential barriers include: distorted thoughts, history of inconsistent treatment attendance, distorted thoughts, and anxious thoughts. Functional Impact: Patient admits to having 'High anxiety and severe depression. Also admits to having severe anger issues. Has been following with Alycia at [facility] for depression and irritability. Admits to feeling super sad and lost when feeling depressed. Admits that anxiety is to a point where I can't sit still. Feels like he can't seem to relax. Reports that he fidgets very frequently. Feels like he worries about the future. Has had been having panic attacks recently to the point where he is throwing up, starting about 2 weeks ago. Goal Relevant Strengths/Supports: Resilient, intelligent, and reports feeling motivated. Objectives Objective #1: Stated Objective: Client will learn and implement 2-3 calming skills to reduce overall anxiety and manage anxiety symptoms Interventions: Therapist and group sessions will help client identify physiological warning signs of anxiety, increase awareness of thoughts that increase anxiety, and identify behaviors that reinforce anxious symptoms. Group and individual counseling will teach client calming skills to help manage anxious symptoms. Discharge Criteria: Client will have achieved this goal when can verbalize at least 2 calming skills and reports skills successfully help reduce anxious symptoms. Target Date: 06/17/24 Review Date: 05/27/24 Objective #2: Stated Objective: Pt will improve ability to cope with OCD symptoms and reduce avoidance by setting 1-2 small exposure goals each week. Interventions: Through group and individual therapy, pt will gain skills on distress tolerance and sitting with the uncomfortable. Therapist will help pt set small, realistic exposure goals each week. Therapist will have pt practice these goals both in session and at home. Therapist will provide psychoeducation on why this is important to reducing anxiety, OCD, and phobias. Therapist will also provide psychoeducation on intrusive thinking and reducing safety behaviors. Discharge Criteria: Pt will have accomplished this goal when pt can report accomplishing at least 1 exposure goal per week and can report reduced avoidance overall. Target Date: 06/17/24 Review Date: 05/27/24
--- NOTE | 2024-05-11 15:30 | BH.MDN ---
Multi-Disciplinary Note Note 45-min Individual: Time Started:: 12:10 Date: 05/11/24 Purpose of session/treatment goals addressed:: Purpose of session was to gather background information, build rapport, and identify goals for IOP. Eye Contact:: Fair Motor Activity:: Restless Appearance:: Casual Speech:: Appropriate Mood:: Anxious Affect:: Congruent Thoughts:: Linear, Logical and No evidence of hallucinations/delusions noted Staff Interventions:: CBT techniques, rapport building, strengths perspective, treatment planning, goal setting and taught coping skills Client Response:: Client reported he is seeking IOP treatment due to increase in anger outbursts, severe anxiety, and depression continuing to interfere with ability to get or keep employment. Client stated he will get triggered by his family that results in him yelling, screaming, and name calling his family. Client reported his father often triggers him because his dad will focus on something client didn't do or tell the client he is being lazy. Client stated he will then go off on his parents. Client reported he will feel guilty for going off on his mom because she is supportive of him, but stated he feels out of control when gets angry. Client reported his anger also gets triggered by his brother's girlfriend (Grace). Client reported he had been getting along with Grace, but the fighting has started again because she doesn't like client's girlfriend. Client stated he needs to learn how to manage his anger more effectively because it is negatively impacts his relationships. Client reported he also would like to learn better ways to manage his depression and anxiety. Client stated he has been doing better with not sleeping in until 12pm and isn't taking naps throughout the day. Client reported having more energy lately which has been helpful for his mood. Client reported his anxiety is often racing thoughts and worries that often result in client avoiding situations or talking himself out of trying something new. Client stated he has tried belly breathing, but doesn't find this helpful. Client stated he is unsure if belly breathing is more difficult for him since he has been having some breathing issues and has a follow up with feather mixer soon. Client connected with grounding skills which focuses more on his senses versus breathing. Client agreed to practice different grounding techniques reviewed in session as homework to help with managing anger and anxiety. Risks/Concerns:: Denies suicidal ideation, plan, or intention to date. future oriented. Progress Toward Goals/Plan:: Progress noted with client reporting decreased napping and being able to get moving earlier in the morning. Client is having frequent anger outbursts towards his family members which often results in client having self deprecating thoughts. Client's self deprecation reinforces depressed symptoms. Client is to start practicing grounding tools and trying to walk away from situations when he is feeling agitated. Client to continue IOP to improve distress tolerance, challenge distortions, and prevent decompensation. Time Stopped:: 13:00
--- NOTE | 2024-05-13 09:05 | BH.SGPN.GN ---
Behaviors/Verbalizations/Mental Status: [] Eye contact is good. Motor activity is appropriate. Appearance is casual. Speech is Appropriate. Mood is depressed. Affect is flat. Thoughts are linear and logical. No evidence of psychosis. Reviewed daily check in sheet and no reports of suicidal ideations or intent. Client Response/Progress/Benefit: [] Pt participated at times during the group discussions. Attentive. Daily symptom tracker notes 07/25 for depression, anxiety, and irritability. Emotion is ?blah?. Only able to identify one win which is ? I?m here today?. Shared recent medical issues ? nodules in my lungs? which is impacting his breathing. Health anxiety. Talked at length about comparing himself to others on social media which led to deleting Facebook. ? What is wrong with me ? why am I not with kids?. Shared how a single post of picture can significantly impact her mental health and cause rumination. Limited progress noted. Benefited from group support, encouragement, and feedback. Will continue in IOP to prevent decompensation, stabilize mood, increase healthy coping, and improve functioning. Narrative Note: []
--- NOTE | 2024-05-13 10:15 | BH.SGPN.GN ---
Behaviors/Verbalizations/Mental Status: []Pt alert and oriented, casually dressed and groomed. Eye contact good. Motor activity appropriate. Speech within normal limits. Affect congruent, mood anxious and depressed. Thoughts linear, logical, no signs of hallucinations or delusions. Client Response/Progress/Benefit: [] Pt receptive to session AEB contributing to group discussion, as well as listening attentively to others, and taking notes. Worked with group to brainstorm the positive and negative aspects of stress on physical and mental health as well as the impact of distress on performance, relationships, and mental health. Pt shared their top stressors to be: mood instability, lack of job, and conflict within relationships. Shared when feeling overwhelmed with stress pt tends to shut down, lash out, and give up. Benefited from increased awareness of positive and negative stress as well as how stress impact individuals. Will continue in IOP to prevent decompensation, increase distress tolerance skills, and improve daily functioning. ?? Narrative Note: []
--- NOTE | 2024-05-16 09:05 | BH.SGPN.GN ---
Behaviors/Verbalizations/Mental Status: [] Eye contact is poor. Motor activity is appropriate. Appearance is casual. Speech is Appropriate. Mood is depressed/irritable. Affect is congruent. Thoughts are linear and logical. No evidence of psychosis. Reviewed daily check in sheet and pt reports 2/5 for suicidal ideations and 0/5 for intent. Therapist aware. Client Response/Progress/Benefit: [] Pt participated at times during the group discussions. Attentive. Daily symptom tracker notes 5/5 for anxiety, depression, and irritability. Reports ?breathing trouble this morning? due to recent lung issues. Overall reports struggled with mental health over the weekend. ? Weekend was really bad?. Elaborated on events and stressors which are primarily tied to family conflict. Several arguments over the weekend which caused negative automatic thoughts and decreased self-esteem. Feeling ?angry and depressed?. Limited progress noted. Benefited from group support, encouragement, and feedback. Will continue in IOP to maintain safety, increase healthy coping, and improve functioning. Narrative Note: []
--- NOTE | 2024-05-16 10:10 | BH.SGPN.GN ---
Behaviors/Verbalizations/Mental Status: []Patient was alert and oriented, casually dressed and groomed. Eye contact good. motor activity appropriate. speech within normal limits. Affect congruent, mood dysthymic. Thoughts linear, logical, no signs of hallucinations or delusion. Client Response/Progress/Benefit: [] Pt participated in the group discussions AEB providing input, nodding and taking notes. Attentive during psychoeducation Goal Setting. Participated during the discussion on common barriers. Pt stated personal barriers to accomplishing goals include lack of motivation, negative self-talk, and low confidence. Group also identified benefits of goals as sense of purpose, improved self-confidence, more motivation for other goals, sense of accomplishment, and improved mental health. Pt identified personal benefits to goal setting. Benefited from increased awareness of mental health benefits of goals as well as psychoeducation on SMART goal criteria. Will continue in IOP to prevent decompensation, improve distress tolerance skills, and reduce negative self-talk. ??? Narrative Note: []
--- NOTE | 2024-05-17 10:10 | BH.SGPN.GN ---
Behaviors/Verbalizations/Mental Status: [] Eye contact is good. Motor activity is appropriate. Appearance is casual. Speech is Appropriate. Mood is anxious. Affect is congruent. Thoughts are linear and logical. No evidence of psychosis Client Response/Progress/Benefit: [] Pt responded well to session AEB contributing to small group discussion, taking notes, and listening attentively to others. Group defined anger and discussed the benefits of managed anger and anger as a secondary emotion. Group shared perspective on benefits of anger as advocating for self and getting needs met, a means to internal change, as well as a catalyst for change. Pt engaged in group discussion on common triggers for anger. Identified feeling caught off guard or when things unexpectedly change as an anger trigger. Appeared to benefit from increased knowledge of the anger cycle as well as personal triggers. Will continue IOP to increase healthy coping, prevent decompensation, and improve functioning. Narrative Note: []
--- NOTE | 2024-05-17 11:10 | BH.SGPN.GN ---
Behaviors/Verbalizations/Mental Status: []Client alert and oriented, casually dressed and groomed. Eye contact good, Motor activity appropriate. Speech within normal limits. Affect congruent, mood euthymic. Thoughts linear, logical, no signs of hallucinations or delusions. Client Response/Progress/Benefit: []Pt was engaged throughout AEB contributing to group discussion and activity. Group processed how they each responded to the intentionally difficult task they were asked to completed and described the physical and emotional anger cues experienced throughout, as well as strategies used for managing these frustrations. Pt contributed as group brainstormed healthy coping skills for better managing anger which included: music, walking/exercise, taking a break, healthy venting, avoiding unnecessary stressors, reflection, and journaling. Pt cooperative with working in small groups to identify what strategy wants to work on to help interrupt personal anger cycle. Pt shared he learned today importance of taking a step back. Pt to continue IOP to improve distress tolerance, improve view of self, and prevent decompensation.
--- NOTE | 2024-05-17 11:26 | PCM.BH.PN ---
Progress Note Progress Note: History of Present Illness/Interim History: The patient is a 34-year-old male who is seen in follow-up at the [facility] behavioral health IOP. He was last seen by Dr. Figueroa on May 06, 2024 for depression, OCD and Tourette's syndrome. At that time the Zoloft was increased to 200 mg daily to help treat the OCD. The patient states that he is doing well overall and feels he is really learning valuable skills in the IOP. He has been able to cope with stress better and last weekend was able to use skills he has learned in the IOP to react better to stress. He still has occasional anger outburst but much less lately. However the patient does feel that the Rexulti he is taking is making his Tourette's syndrome get worse and this is making him feel more anxious. He denies passive thoughts of , suicidal ideation, homicidal ideation, plan for suicide, hallucinations or delusions. He continues to have intrusive perseverative thoughts. His sleep is okay overall according to the patient. Current Psychiatric Medications: [] Zoloft 200 mg p.o. daily (x 2 weeks); resulting 2 mg p.o. daily (on it for 2 months; fluphenazine 10 mg p.o. daily for Tourette's; Klonopin 0.5 mg daily as needed Mental Status Examination: [] The patient is a 34-year-old male who appears normal for stated age and is casually dressed and groomed with good hygiene. He has no psychomotor agitation or retardation. He is cooperative and pleasant in the interview today. Speech is normal rate and rhythm and fluent with no pressure. Eye contact is good. Mood is anxious due to Tourette's worsening. Affect is mildly constricted. Thought process is goal-directed and organized. Thought content: There is evidence of intrusive thoughts as at last visit. There is no evidence of passive thoughts of , suicidal ideation, plan for suicide, homicidal ideation, hallucinations or delusions. Reality testing is intact. Judgment is intact. Insight: Some present. Impulsivity: High. Diagnoses: [] 1. Major depressive disorder, recurrent, severe without psychosis 2. OCD 3. Tourette's syndrome 4. Work, financial and primary support issues Plan: [] The patient will continue the IOP and behavioral health at [facility] as it seems to be benefiting him. No medication changes were made today but the patient will decrease his Rexulti to 1 mg p.o. daily for 1 week and then we will discontinue Rexulti has it is making his Tourette's syndrome much worse and this is really bothering and stressing the patient out. He will continue to follow-up with his outpatient providers and I will see the patient in follow-up in 2 weeks.
--- NOTE | 2024-05-17 15:46 | BH.MDN_ITS ---
Multi-Disciplinary Note Note 45-min Individual: Time Started:: 09:03 Date: 05/17/24 Purpose of session/treatment goals addressed:: Purpose of session was to address goals 1 and 2 from MTP. Eye Contact:: Fair Motor Activity:: Restless Appearance:: Neat Speech:: Appropriate Mood:: Euthymic Affect:: Full Thoughts:: Linear, Logical and No evidence of hallucinations/delusions noted Staff Interventions:: thought challenging, CBT techniques, mindfulness skills, rapport building, strengths perspective, goal setting and taught coping skills Client Response:: Client reported feeling a little better today compared to yesterday and Thursday. Client stated on Thursday he was hanging out with his brother and his brother's girlfriend (Astrid) and it quickly became a conflict between himself and Astrid Client reported Astrid started to yell at him about getting back with his previous girlfriend because she does not like client's current girlfriend. Client reported he did argue with her but felt like he handled the situation better compared to the previous weekend. Client stated he did not yell at Astrid or have a anger outburst. Client reported he did tell her that he could not do this anymore and was done speaking to her. Client stated later that night on Thursday he did start to feel the urge to go to an inpatient psychiatric unit because he was feeling alone and having thoughts of hurting himself. Client reported he verbalized these thoughts of hurting himself to his mom and his mom talked with him about what was going on. Client stated his mom encouraged him to try to work through these emotions and go to [facility] the next day. Client reported yesterday he was feeling agitated while at [facility] in the morning and was still having thoughts of hurting himself but after talking about what was going on and engaging in groups 2 and 3 throughout the rest the day he noticed his mood improving. Client stated he recognizes he did not really need to go to the hospital but was just looking for a way to escape how he was feeling about the consistent arguing with Astrid over the last week and a half. Client reported yesterday he also found out from his parks recreation coordinator that he has asthma which is why he has a hard time with breathing and is having a lot of coughing fits. Client stated finding out that he has asthma and that the nodules on his lungs are not concerning has been a huge stress reliever. Client reported receiving a text message from client's brother that client's brother set a boundary with his girlfriend that if his girlfriend cannot stop fighting with client that the brother will break up with her. Client stated it did feel positive to have his brother stand up for him which is not something that has consistently happened recently. Client stated he recognizes he struggles with wanting to escape when he has uncomfortable feelings like anxiety or frustration. Client agreed with therapist this is often the reason he has a hard time maintaining jobs and relationships because wants to escape the d ifficult feelings. Therapist encouraged client when he has a feeling while in [facility] to leave group because he is feeling anxious or agitated to talk to one of the [facility] therapist prior to trying to leave. Therapist explained the client every time he escapes when things get difficult he continues to reinforce his brain that avoidance and escaping are good for him. Client agreed with this plan stating he knows he needs to push himself to work through some of these emotions by using a healthy coping skill like grounding and meditation instead of avoidance and isolation. Client stated he is looking forward to meeting with [facility] psychiatrist today because he does not like his medications are helping him. Client stated he does feel like one of the medications is causing his Tourette's to worsen and is not sure if Zoloft is helping at all. Client reported he is continuing to experience high levels of anger, depressed feelings, and recent suicidal thoughts. Client open to completing a anger log to help her gain insight and awareness of what triggers his anger and what are common responses he has when angry. Therapist also reviewed healthy coping skill of guided imagery and progressive muscle relaxation with the encouragement of client trying at least 1 of those skills prior to going to bed each night. Risks/Concerns:: Client did report recent suicidal thoughts denied having suicidal plan or intention. Denies current thoughts of suicide or plan and intention. Client stated he believes his thoughts of wanting to hurt himself was really just because he wanted to escape the conflict between himself, his brother, and Astrid. Client stated feels able to maintain safety. Progress Toward Goals/Plan:: Progress variable. Client's mood and emotion are often dependent on current psychosocial stressor. Client's relationship with his brother's girlfriend continues to be strained. 2 weeks ago client reported he was best friends with his brother's girlfriend and today he is reporting he does not want to be more than cordial around her. Client stated he agrees he struggles with having extreme feelings and evaluations of situations that can change within a couple days. Progress can be noted with client handling recent argument with Astrid over the weekend by not having anger outburst when she was yelling at him. Client open to working on understanding his anger and utilizing calming skills to help manage anger responses. Plan is for client to continue IOP to improve distress tolerance, challenge negative distorted thoughts, and prevent decompensation. Time Stopped:: 09:50
--- NOTE | 2024-05-18 09:05 | BH.SGPN.GN ---
Behaviors/Verbalizations/Mental Status: [] Eye contact is good. Motor activity is appropriate. Appearance is casual. Speech is Appropriate. Mood is depressed and irritable. Affect is flat. Thoughts are linear and logical. No evidence of psychosis. Reviewed daily check in sheet and no reports of suicidal ideations or intent. Client Response/Progress/Benefit: [] Pt was an active participant in group discussions. Attentive. Daily symptom tracker notes 5 for depression, anxiety, and irritability. Shared with group that he had ?poor sleep? mainly due to ? overthinking stuff till 4am?. Tired today which is impacting mental health, energy, and motivation. Despite struggles he reports that he is trying to reframing and challenge thoughts to stop himself for spiraling in deep depression. Limited progress noted. Benefited from group support, encouragement, and feedback. Will continue in IOP to prevent decompensation, stabilize mood, and improve functioning. Narrative Note: []
--- NOTE | 2024-05-18 10:15 | BH.SGPN.GN ---
Behaviors/Verbalizations/Mental Status: []Client alert and oriented, casually dressed and groomed. Eye contact good. Motor activity appropriate. Speech within normal limits. Affect congruent, mood anxious. Thoughts linear, logical, no signs of hallucinations or delusions Client Response/Progress/Benefit: [] pt responded well to session, contributing to discussion and engaged during the activity. Group identified the benefits of change which included: personal growth, increased confidence, improving mental health, progressing, and becoming resilient. Worked with the group to identify barriers to change and pt identified personal barriers as lack of self-confidence, and anxiety. pt participated along with group in activity where they discussed the emotions related to change. Benefited from increased awareness and understanding of emotions, benefits, and barriers related to change. Will continue IOP tx to prevent decompensation, gain healthy coping skills, and improve daily functioning. Narrative Note: []
--- NOTE | 2024-05-18 11:15 | BH.SGPN.GN ---
Behaviors/Verbalizations/Mental Status: []Client alert and oriented, neatly dressed and groomed. Eye contact good. Motor activity appropriate. Speech within normal limits. Affect congruent, mood anxious. Thoughts linear, logical, no signs of hallucinations or delusions. Client Response/Progress/Benefit: [] Pt responded well to session, attentive throughout. Did well to actively listen and contributed when prompted as group worked to review change process. Pt worked with group to relate the strategies used to overcome barriers in the various stages of change and common emotions throughout. Pt identified a change they would like to make is ?Getting up earlier more consistently.? Pt identified currently being in the planning stage for this change. Pt said setting an alarm is something to help pt get to the next stage. Appeared to benefit from identifying a change they want and how to progress. Pt will continue IOP tx to prevent decompensation, combat distorted thought patterns, and improve self-compassion. Narrative Note: []
== END 2024-05-20 23:59 ==
LOC: BHIOP 14:43
PROVIDERS: PCP Student in an Organized Health Care Education/Training Program; Referring Provider Psychiatry & Neurology Psychiatry; Visit Provider Psychiatry & Neurology Psychiatry
DX: F33.2 Major depressive disorder, recurrent severe without psychotic features (principal); F42.9 Obsessive-compulsive disorder, unspecified; F95.2 Tourette's disorder
CPT/HCPCS: H2012; H2020; S9480; 90834

== ENCOUNTER 2024-05-23 07:37 | Outpatient (RCR) | payer MEDICAID, SELFPAY ==
--- NOTE | 2024-05-24 10:15 | BH.SGPN.GN ---
Behaviors/Verbalizations/Mental Status: []Pt alert and oriented, casually dressed and groomed. Eye contact good. Motor activity appropriate. Speech within normal limits. Affect congruent, mood content. Thoughts linear, logical, no signs of hallucinations or delusions. Client Response/Progress/Benefit: [] Pt responded well to session, attentive and engaged. Group participated in the discussion defining stigma as well as what stigma has kept pt's from doing in their lives. Pt stated mental health stigma has kept pt from applying for and keeping jobs throughout his adult life. Pt worked with peers to begin discussion of what reinforces stigma, both socially and internally, and this was discussed further in the next group. Pt appeared to benefit from learning about the different types of stigma as well as gaining awareness of how stigma has personally impacted pt. Pt will continue IOP tx to prevent decompensation, improve daily functioning, and increase distress tolerance. Narrative Note: []
--- NOTE | 2024-05-24 11:15 | BH.SGPN.GN ---
Behaviors/Verbalizations/Mental Status: []Pt alert and oriented, casually dressed and groomed. Eye contact good. Motor activity appropriate. Speech within normal limits. Affect congruent, mood euthymic. Thoughts linear, logical, no signs of hallucinations or delusions. Client Response/Progress/Benefit: [] Pt engaged participant AEB participating in the activity, providing input during small group discussion, and listening attentively to others. Pt appeared to connect with discussion in the benefits of addressing mental health stigma which included: improved relationships, increased willingness to seek help, increased happiness, and improved confidence. Group brainstormed strategies to combat social and perceived stigma. Pt identified that they contribute to stigma by telling himself you can't do it and convinces self won't be good enough before he tries. Pt shared one thing pt can do to combat stigma is to decrease social media usage. Appeared to benefit from increasing awareness of strategies to combat stigma. Pt is to continue IOP to increase consistent use of healthy coping skills, improve decision making, and prevent decompensation.
--- NOTE | 2024-05-24 15:31 | BH.MDN ---
Multi-Disciplinary Note Note 45-min Individual: Time Started:: 09:05 Date: 05/24/24 Purpose of session/treatment goals addressed:: Purpose the session was to address goals 1 and 2 from MTP. Eye Contact:: Good Motor Activity:: Appropriate Appearance:: Casual Speech:: Appropriate Mood:: Euthymic Affect:: Congruent Thoughts:: Linear, Logical and No evidence of hallucinations/delusions noted Staff Interventions:: thought challenging, CBT techniques, strengths perspective, goal setting and taught coping skills Client Response:: Client reported he chose to not go back to the denominational because he knows it was not healthy for him. Client stated he had talked to his mom and girlfriend about what to do with regards to returning to the [facility] denominational they both agree with him when he was going and ended up not being healthy for him. Client reported he is trying to work on not being as wishy-washy in regards to his decision making because 1 day he we will make a decision of going back to denominational or doing something and then immediately go back on that decision. Client stated he would like to find a denominational community to be able to attend that is healthier for his mental health. Client stated he is going to take some time to figure out what denominational community would be the best fit client reported that he has noticed a decrease in his anger for his spiritual needs. Client reported he has noticed a decrease in his anger outburst. Client stated recently he was feeling upset and angry with his dad and had the urge to go off on his dad but instead walked away. Client reported he is happy with himself for not engaging in a argument because he often does not make anything better. Client stated over the weekend he had a conversation with his brothers girlfriend about their disagreements recently. Client stated that the brother's girlfriend apologized for her behavior and they were able to successfully hang out without any blowups or arguments. Client reported he would like to be able to be around his brother's girlfriend quarterly because she does find it nice to have that support system with his brother. Client stated he has noticed since getting off the Rizolti medication he is starting to feel more tired. Client reported he is noticing that he is going back to sleeping 12 hours and on top of that wanting to nap. Client and therapist work together to develop a plan and ideas of what he can do to decrease napping throughout the day because in the past napping has resolved and increased depression and isolation. Client stated something that could help his when he leaves IOP he will go to his brothers to hang out instead of going home because he will likely sleep if he goes home. Client said he also talk with his brother about going to the gym several times a week together to get him active and have something to do. Risks/Concerns:: Denies suicidal ideation, plan, or intention. Future oriented. Progress Toward Goals/Plan:: Progress noted with client reporting decreased anger outbursts, improved emotional regulation, inability to walk away from situation that in the recent past would have resulted in him going off. Client is starting to report an increase in feeling tired and wanting to sleep which historically speaking has resulted in increased depression for client. Client open to discussing strategies and techniques that can help him work through his feeling of being tired to decrease napping. Plan is for client to spend more time outside of his home throughout the day so that he does not have the opportunity to take a nap. Continue IOP 2 continue working on decreasing anger outbursts, challenging distorted thought patterns, and prevent decompensation. Time Stopped:: 09:50
--- NOTE | 2024-05-25 13:21 | BH.TPR ---
Treatment Plan Review Demographics Date of Admission:: 05/05/24 Date of Treatment Plan Review:: 05/25/24 Admitting Diagnoses:: 1. Major depressive disorder, recurrent, severe without psychosis F33.2 2. OCD 3. Tourette's syndrome Current Diagnoses:: 1. Major depressive disorder, recurrent, severe without psychosis F33.2 2. OCD 3. Tourette's syndrome Patient Status Patient's Response to Treatment:: Pt has shown consistent treatment attendance, showing up to IOP mostly on time, and engagement in group sessions. Status of Current Problems and Symptoms: Ongoing problems. Client reporting decrease in his anger and no anger outbursts in the last week. Client stated his symptoms of Tourette's also has decreased since being off the Rexulti. However, client stated since being off the Rexulti he has been feeling more tired and needing to sleep 10+ hours a night. Client has reported taking more naps throughout the week, but has been trying to keep his naps to no more than one hour. Client open to decreasing how often he spends at home to decrease isolation and napping by going to his brothers to hang out or go to the gym. Client has reported decrease in his anxiety, reporting use of belly breathing and grounding tools. Client has reported per DSM 5 cross-cutting measure at review an overall 37% decrease in mental health symptoms. Progress Problem #1: Problem Name:: Depression and anger Status of Goals:: Obj 1 - Not met. Client continues to report per DSM 5 cross-cutting measure moderate depression and moderate irritability. Per pt's report some progress can be noted with not having any anger outbursts in over a week. Obj 2 - not met. Pt starting to report increased awareness of negative thoughts, but continued work on challenging thoughts independently. Team Recommendations:: Team recommends having him reach out to [place] [employer] to look into employment opportunities. Team recommends to continue current goals and objectives with focus on helping client with consistent application of skills/strategies. Problem #2: Problem Name:: Anxiety Status of Goals:: Obj 1 - progress noted. per DSM 5 cross-cutting measure client's anxiety has decreased by 58% when compared to admission scores. Client has reported use of belly breathing and grounding tools to help with his anxiety management. Obj 2 - progress noted. Client able to identify anxiety triggers, starting to utilize skills to help with management of triggers. However, client does continue to engage in avoidance of some anxious situations. Team Recommendations:: Team recommends to continue current goals and objectives with focus on helping client with consistent application of skills/strategies.
--- NOTE | 2024-05-26 09:05 | BH.SGPN.GN ---
Behaviors/Verbalizations/Mental Status: [] Eye contact is good. Motor activity is appropriate. Appearance is casual. Speech is Appropriate. Mood is anxious. Affect is congruent. Thoughts are linear and logical. No evidence of psychosis. Reviewed daily check in sheet and no reports of suicidal ideations or intent Client Response/Progress/Benefit: [] Pt participated at times during the group discussions. Attentive. Daily symptom tracker notes 05/25 for depression, anxiety, and irritability. ?I got a new job?. Increase in motivation and excitement AEB exercising and going on job interviews. He had not shared to staff or group that he had an interview or was even looking for a job. Somewhat impulsive based on his recent mental health struggles, difficulty with panic attacks in social situations, and low distress tolerance. Benefited from group support, encouragement, and feedback. Will continue in IOP to prevent decompensation, stablize mood, and increase healthy coping. Narrative Note: []
--- NOTE | 2024-05-26 10:10 | BH.SGPN.GN ---
Behaviors/Verbalizations/Mental Status: [] Pt alert and oriented, casually dressed and groomed. Eye contact good. Motor activity appropriate. Speech within normal limits. Mood is euthymic and anxious. Affect is congruent. Thoughts linear, logical, no signs of hallucinations or delusions. Client Response/Progress/Benefit: [] Pt was an active?participant in group discussions and experiential activity. Worked with peers to identify benefits of healthy relationships which included; support, shared experiences, laughter, understanding, and the ability to challenge us. Group identified factors that lead to unhealthy relationships which included; fear, loneliness, low self-esteem, need to be liked, and societal expectations. Benefited from increased insight and awareness of benefits of healthy relationships and factors that contribute to unhealthy relationships. Will continue IOP to prevent decompensation, increase healthy coping skills, and improve functioning. Narrative Note: []
--- NOTE | 2024-05-26 11:05 | BH.SGPN.GN ---
Behaviors/Verbalizations/Mental Status: []Pt alert and oriented, casually dressed and groomed. Eye contact good. Motor activity appropriate. Speech within normal limits. Affect full, mood euthymic and anxious. Thoughts linear, logical, no signs of hallucinations or delusions. Client Response/Progress/Benefit: [] Pt responded well to session, engaged and taking notes throughout. Worked with group to connect components of the experiential activity with characteristics of healthy and unhealthy relationships. Attentive during psychoeducation about characteristics of healthy, unhealthy, and abusive relationships. Pt reported pt is much better at communicating with yelling and then shutting down. However, pt reported pt can work on continuing to address issues instead of avoiding things. Appeared to benefit from identifying current healthy relationship attributes and an area Pt wants to work on to build healthier relationships. Pt to continue IOP to promote mood stability, increase distress tolerance, and improve ability to function. Narrative Note: []
--- NOTE | 2024-05-27 09:05 | BH.SGPN.GN ---
Behaviors/Verbalizations/Mental Status: [] Eye contact is good. Motor activity is restless. Appearance is casual. Speech is Appropriate. Mood is anxious. Affect is congruent. Thoughts are linear and logical. No evidence of psychosis. Reviewed daily check in sheet and no reports of suicidal ideations or intent. Client Response/Progress/Benefit: [] Pt participated at times during the group discussion. Attentive. Daily symptom tracker notes 4/5 for irritability and 3/5 for depression. ? I?m chill now?. According to pt he woke with a asthma attack which exacerbated his anxiety and negative thoughts. Able to work through emotions, negative thoughts, and distress tolerance to attend IOP. Progress noted. Benefited from group support, encouragement, and feedback. Will continue in IOP to prevent decompensation, stabilize mood, and improve functioning. Narrative Note: []
--- NOTE | 2024-05-27 10:10 | BH.SGPN.GN ---
Behaviors/Verbalizations/Mental Status: [] Eye contact is good. Motor activity is appropriate. Appearance is casual. Speech is Appropriate. Mood is content. Affect is congruent. Thoughts are linear and logical. No evidence of psychosis. Client Response/Progress/Benefit: [] Pt receptive of session, actively engaged throughout AEB taking notes, providing input, and contributing in group discussion. Appeared to connect with group topic of automatic thoughts and cognitive distortions, as well as the impact of thought patterns on mental health, coping behaviors, and relationships. This particular group is very heavy on psychoeducation and pt appeared to connect with distortions and how they can impact functioning. Identified struggling with the labeling distortion. Pt appeared to benefit from gaining insight on distorted thinking patterns and how this impacts overall mental health. Will continue IOP to stabilize mood, improve ability to function, and prevent decompensation. Narrative Note: []
--- NOTE | 2024-05-27 11:12 | BH.SGPN.GN ---
Behaviors/Verbalizations/Mental Status: [] Eye contact is good. Motor activity is appropriate. Appearance is casual. Speech is Appropriate. Mood is content. Affect is congruent. Thoughts are linear and logical. No evidence of psychosis. Client Response/Progress/Benefit: [] Pt was an active participant during group discussion. Pt was placed in a smaller group for activity and participated in identifying/combatting example distortions with peers. Pt was engaged in the smaller group, participated in group interactions to brainstorm answers, and appeared to be comprehending cognitive distortions. Pt stated could connect with many of the distortions covered in group. Benefited from gaining further insight and awareness of cognitive distortions as well as practicing ways to reframe and challenge thoughts. Will continue in IOP tx to improve outlook, increase healthy coping skills, and prevent decompensation. Narrative Note: []
--- NOTE | 2024-06-01 09:00 | BH.SGPN.GN ---
Behaviors/Verbalizations/Mental Status: [] Eye contact is good. Motor activity is appropriate. Appearance is casual. Speech is Appropriate. Mood is content. Affect is congruent. Thoughts are linear and logical. No evidence of psychosis. Reviewed daily check in sheet and no reports of suicidal ideations or intent. Client Response/Progress/Benefit: [] Pt was an active participant in group discussions. Attentive. Daily symptom tracker notes 05/25 for depression and 05/25 for anxiety. Did well to identify 2 mental health wins including being able to sit outside and listen to music for awhile yesterday. Shared that he had been sick earlier in the week and therefore it was nice to get out of the house. Pt identified an additional win as challenging himself to attend a family game night with his future [id number]'s family. Shared tension within that relationship and was glad to have a positive experience with them. Stressor noted as ongoing struggles with sleep. Shared some hope as he is meeting with psychiatry today. Benefited from group support, encouragement, and feedback. Will continue in IOP to prevent decompensation, promote mood stability, and increase healthy coping. Narrative Note: []
--- NOTE | 2024-06-01 10:10 | BH.SGPN.GN ---
Behaviors/Verbalizations/Mental Status: [] Eye contact is good. Motor activity is appropriate. Appearance is casual. Speech is Appropriate. Mood is anxious and content. Affect is congruent. Thoughts are linear and logical. No evidence of psychosis. Client Response/Progress/Benefit: [] Pt was engaged and participating throughout, providing input and taking notes. Attentive during psychoeducation on anxiety and cognitive triangle. Participated in an interactive discussion on defining anxiety and identifying cognitive and physiological symptoms of anxiety. The group discussed the role of anxiety on isolation, avoidance, and overall functioning. Pt identified their physical/physiological signs of anxiety which includes: rapid heart rate, sweating, tremors, headache, and restlessness. Benefited from increased awareness and insight on anxiety and its impact. Will continue in IOP to prevent decompensation, increase healthy coping, and improve functioning. Narrative Note: []
--- NOTE | 2024-06-01 11:10 | BH.SGPN.GN ---
Behaviors/Verbalizations/Mental Status: []Pt alert and oriented, casually dressed and groomed. Eye contact good. Motor activity appropriate. Speech within normal limits. Affect congruent, mood anxious and euthymic. Thoughts linear, logical, no signs of hallucinations or delusions. Client Response/Progress/Benefit: [] Pt was an active participant AEB pt providing input and listening attentively to peers. Attentive during psychoeducation on mindfulness coping skills and their impact on reducing anxiety and improving overall mental health wellness. Group was able to identify self-soothing and mind-based coping skills which included: 5-senses, meditation, deep breathing, TIPP, thought challenging, categories, and progressive muscle relaxation. Pt also participated with peers in practicing mindfulness skills in session including deep breathing. Pt would like to work on categories to manage anxiety. Appeared to benefit from increasing repertoire of anxiety reduction skills. Pt will discharge from IOP tx as pt has accomplished his tx goals and no longer meets criteria for IOP level of care.
--- NOTE | 2024-06-01 12:25 | PCM.BH.PN_ITS ---
Progress Note Progress Note: History of Present Illness/Interim History: The patient is a 34-year-old single male who is seen in follow-up at the [facility] behavioral health IOP where he has been seen for depression, OCD and Tourette's syndrome. I last saw the patient 2-1/2 weeks ago and we discontinued the resulting as the patient's felt it was making his Tourette's symptoms much worse and this was making him more anxious. He discontinued the resulting 10 days ago and his Tourette's symptoms have decreased and he feels much better. He feels he is doing well overall now and learning a lot in the IOP which has enabled him to apply the skills to react better to stresses. His sleep is good but he complains of a lot of fatigue and finds it very difficult to get up in the morning and describes low energy during the day and low motivation. He is taking Klonopin at night and sometimes during the day. He denies passive thoughts of , suicidal ideation, homicidal ideation, plan for suicide, hallucinations or delusions. He has some intrusive perseverative thoughts that remain from his OCD. Current Psychiatric Medications: [] Mental Status Examination: [] The patient is a 34-year-old male who appears normal for stated age and is casually dressed and groomed with good hygiene. He is cooperative and pleasant in the interview. He has no psychomotor motor agitation or retardation. Eye contact is good and speech is normal rate and rhythm and fluent with no pressure. Mood is mildly down to euthymic. Affect is minimally constricted. Thought process is goal-directed and organized. Thought content: There is evidence of intrusive thoughts but there is no evidence of passive thoughts of , suicidal ideation, plan for suicide, homicidal ideation, hallucinations or delusions. Reality testing is intact. Judgment is intact. Insight limited but improving. Impulsivity is hi gh. Diagnoses: [] 1. Major depressive disorder, recurrent, moderate 2. OCD 3. Tourette's syndrome 4. Work, financial and primary support issues Plan: [] The patient will continue the IOP in behavioral health at [facility] as he seems to be benefiting from the program. The patient is encouraged to decrease his Klonopin to 1/2 tablet or 0.25 mg at bedtime when he normally takes it to see if this helps with his fatigue and difficulty getting up in the morning. He also agrees to limit his Klonopin use during the day as much as is possible. He understands that he should not require the Klonopin for anxiety for very long and that we should possibly increase other meds if he does. He will continue to follow-up with his outpatient providers and I will see the patient in follow-up in 2 weeks. I did refill the patient's Zoloft today.
--- NOTE | 2024-06-02 11:15 | BH.SGPN.GN ---
Behaviors/Verbalizations/Mental Status: []Pt alert and oriented, casually dressed and groomed. Eye contact fair. Motor activity appropriate. Speech within normal limits. Affect congruent, mood content. Thoughts linear, logical, no signs of hallucinations or delusions. Client Response/Progress/Benefit: [] Pt responded well to session AEB taking notes and contributing to discussion throughout. Pt engaged as group continued discussion on acceptance and the mental health benefits of practicing acceptance. Pt and peers identified what makes acceptance challenging and pt completed a self-reflection exercise on what is hard to accept in pt's life. Pt identified something that is currently hard to accept as the potential he may never work full-time. Client stated by not accepting this it leads to feeling not good enough and worthlessness. Group identified strategies to increase acceptance. Pt noted wanting to work on focusing on self-compassion and looking at evidence against. Pt appeared to benefit from gaining insight and learning strategies to increase acceptance. Pt will continue IOP tx to improve view of self, increase mood stability, and prevent decompensation. Narrative Note: []
--- NOTE | 2024-06-02 15:33 | BH.MDN_ITS ---
Multi-Disciplinary Note Note 45-min Individual: Time Started:: 10:15 Date: 06/02/24 Purpose of session/treatment goals addressed:: This session was to address goals 1 2 from MTP. Eye Contact:: Good Motor Activity:: Appropriate Appearance:: Casual Speech:: Appropriate Mood:: Euthymic Affect:: Congruent Thoughts:: Linear, Logical and No evidence of hallucinations/delusions noted Staff Interventions:: thought challenging, CBT techniques, strengths perspective, goal setting and other (returning to work force discussion) Client Response:: Client reported still struggling with feeling more tired throughout the day and moving to sleep more than usual. Client stated last night he stopped taking his Klonopin and melatonin before bed which was at the discretion of [facility] psychiatrist to help decrease continued sleepiness. Client reported he did find it easier to wake up this morning. Client stated hopefully if he decreases his Klonopin and melatonin use he will be able to wake up easier and not feel so exhausted throughout the day. Client reported he has not had any anger outbursts in over 2 weeks. Client stated he has been putting effort into reducing his napping to no more than an hour. Client stated he is not napping every day but when he does nap he sets an alarm so that he does not stay in bed too long. Client stated he is feeling desire to get back into work because he knows having structure and purpose would be beneficial to his mental health. 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 Client noted them and not be a good idea to go from not being able to hold down a job for the last couple years to jumping into a 50+ hour job. Client therapists spent time discussing ideal jobs that would be good for client to start to explore. Client stated he does think starting off at 20 to 25 hours a week will be a good way to ease himself into the work force again. 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 Client reported in the past when he said jobs and he has been more isolated he noted it being hard for him to want to continue going back because he felt so alone. Client stated he does think I am dealing if he could get a job that does not start until noon would be better for him since he is does struggle to get up and moving in the morning. Client therapist discussed the importance of client really being selected in the next job that he accepts because often in the past he has set himself up for failure by choosing to take on a job that he knows realistically is not something he is going to be able to sustain more than a week or 2. Client stated that here now he would like to start looking at a job descriptions to see if you find something that would be a good fit for him. Risks/Concerns:: Client denies current suicidal ideation, plan, or intention. Future oriented. Progress Toward Goals/Plan:: Progress noted with the client reporting no anger outburst in 2 weeks. Client continues to struggle with feeling more exhausted and tired throughout the day. Client does report trying different techniques to decrease how often he naps so it is not going to her depression cycle. Client starting to feel more stable and ready to explore getting back into the work force. Client explored with therapist ideal work environments and conditions that would help set him up for success in the maintaining a job versus taking on a position that he knows would be unhealthy for him. Plan is for client to continue IOP 2 challenge distorted thought patterns, continue utilization of healthy coping skills, and prevent decompensation. Time Stopped:: 10:45
--- NOTE | 2024-06-03 09:00 | BH.SGPN.GN ---
Behaviors/Verbalizations/Mental Status: [] Client alert and oriented, casual appearance. Eye contact good. Motor activity appropriate. Speech within normal limits. Affect congruent, mood euthymic and positive. Thoughts linear, logical, no signs of hallucinations or delusions. Reviewed client's symptom tracker, no risk for suicidal ideation, plan, or intent. Client Response/Progress/Benefit: [] Client responded well to session AEB listening to others and sharing thoughts/feelings. Client stated mental positive as going to his sister's house and play with his niece and nephew. Client noted additional mental positive as taking his niece and nephew to the park and had a lot of fun with his family. Client noted continued stressor as feeling exhausted despite going to bed early and getting 10 hours of sleep. Client noted additional mental positive as following through with anxiety exposure goal set individual session. There are appeared to benefit from support from peers. Will continue IOP tx to increase consistent utilization of healthy coping skills, challenge negative thoughts, and prevent decompensation. Narrative Note: []
--- NOTE | 2024-06-07 09:05 | BH.SGPN.GN ---
Behaviors/Verbalizations/Mental Status: []Pt alert and oriented, neatly dressed and groomed. Eye contact good. Motor activity appropriate. Speech within normal limits. Affect congruent, mood euthymic. Thoughts linear, logical, no signs of hallucinations or delusions. Client Response/Progress/Benefit: []Pt was an active participant in group discussions. Attentive. Able to identify mental health wins including coming to IOP today to get support instead of isolating and having a fun night with supports a few days ago. Pt's stressor today is ?I had a rough day yesterday and a difficult conversation.? Pt is feeling content? this morning. Pt receptive to feedback from peers which pt reported was helpful. Progress noted. Benefited from group support, encouragement, and feedback. Will continue in [facility] to promote use of healthy coping skills, improve daily functioning, and reduce negative thinking patterns. ? Narrative Note: []
--- NOTE | 2024-06-07 10:15 | BH.SGPN.GN ---
Behaviors/Verbalizations/Mental Status: [] Eye contact is good. Motor activity is appropriate. Appearance is casual. Speech is Appropriate. Mood is content. Affect is congruent. Thoughts are linear and logical. No evidence of psychosis. Client Response/Progress/Benefit: [] Pt was an active participant in group discussions. Attentive during psychoeducation on the 4 communication styles (Passive, Passive-Aggressive, Aggressive, and Assertive) and the obstacles to effective communication. Contributed during interactive discussion on the benefits of communicating effectively. Worked well with peers to identify the benefits and disadvantages to the different communication styles. Benefited from increased understanding of communication styles and how these can impact effective communication. Will continue in IOP to prevent decompensation, reduce negative thinking patterns, and improve daily functioning. Narrative Note: []
--- NOTE | 2024-06-07 11:15 | BH.SGPN.GN ---
Behaviors/Verbalizations/Mental Status: []Pt alert and oriented, casually dressed and groomed. Eye contact good. Motor activity appropriate. Speech within normal limits. Affect congruent, mood anxious. Thoughts linear, logical, no signs of hallucinations or delusions. Client Response/Progress/Benefit: [] Pt responded well to session AEB Pt listening attentively to others and providing input during group discussion on the pay offs and costs of the different communication styles. Pt able to connect how current communication style impacts mental health. Connected with peers? comments about importance of using assertive communication. Pt seemed to benefit from increasing awareness of healthy strategies to improve communication. Client engaged in practicing use of assertive communication. Will continue IOP tx to increase consistent use of healthy coping skills, improve decision making, and prevent decompensation.
--- NOTE | 2024-06-09 09:00 | BH.SGPN.GN ---
Behaviors/Verbalizations/Mental Status: [] Client alert and oriented, casual appearance. Eye contact good. Motor activity appropriate. Speech within normal limits. Affect congruent, mood euthymic and positive. Thoughts linear, logical, no signs of hallucinations or delusions. Reviewed client's symptom tracker, no risk for suicidal ideation, plan, or intent. Client Response/Progress/Benefit: [] Client responded well to session AEB listening to others and sharing thoughts/feelings. Client noted mental positive as playing pickle ball yesterday which she noted to be beneficial for his mood because it makes to be active and get out of the house. Client noted additional mental positive as experiencing a positive interaction with his dad throughout the entire day which she noted is something that does not happen very often. Client reported no current stressor today. Identified feeling chill and content. Appeared to benefit from support from peers. Will continue IOP tx to promote current healthy coping skills, improve confidence, and prevent decompensation. Narrative Note: []
--- NOTE | 2024-06-09 10:15 | BH.SGPN.GN ---
Behaviors/Verbalizations/Mental Status: [] Pt alert and oriented, casually dressed and groomed. Eye contact good. Motor activity appropriate. Speech within normal limits. Affect congruent, mood dysthymic. Thoughts linear, logical, no signs of hallucinations or delusions. Client Response/Progress/Benefit: [] Pt participated at times during group discussions. Attentive during psychoeducation on the CBT [place] (Thoughts, Behaviors, Emotions). Engaged in group discussion on how thoughts and behaviors can contribute to maintaining adverse feelings, such as depression, anxiety, and irritability. Completed worksheet in which pt identified obstacles and/or thoughts that are keeping them stuck. Shared thoughts that included; I'm never going to get out of this funk, I'm a loser, I'm a failure, and I will never amount to anything. Pt benefited from increased awareness of the basis of CBT therapy as well as specific thoughts that are impacting pt's progress. Will continue in IOP to prevent decompensation, increase healthy coping, and improve functioning. Narrative Note: []
--- NOTE | 2024-06-09 11:57 | BH.MDN ---
Multi-Disciplinary Note Note 30-min Individual: Time Started:: 11:20 Date: 06/09/24 Purpose of session/treatment goals addressed:: Purpose of session was to address goals 1 and 2 from MTP. Eye Contact:: Good Motor Activity:: Appropriate Appearance:: Neat Speech:: Appropriate Mood:: Euthymic Affect:: Congruent Thoughts:: Linear, Logical and No evidence of hallucinations/delusions noted Staff Interventions:: thought challenging, CBT techniques, strengths perspective, goal setting and taught coping skills Client Response:: Client reported recently he has been doing better with reduction in his anger. Client stated he has not had any blow ups in 3 weeks. Client stated he has been doing better with walking away when he notices his emotions starting to heightened. Client reported he is looking forward to his parents quantification because he will have some time to himself. Client reported he is starting to struggle though with sleeping in until 10:30 in the morning and having a hard time doing that. Client stated he has cut back on taking the Klonopin because it can make him sleepy. Client reported he is trying not to nap even when he is tired because he knows it is going to mess up his nighttime routine. Client stated in regards to anxiety exposure goals established from previous session he has followed through with going at least 2 times. Client reported the first day he drove the back way to [facility] parking lot and stayed for 10 minutes. Client stated although he wanted to the second day drive past the doors to [facility] he decided that maybe pushing it too much so he just went the back way again. Client reported overall he was able to manage his anxiety rather well. Client stated his next step in the anxiety exposure goal would be to drive past the [facility] door then park and stay there for at least 10 minutes. Client identified treatment progress so far as no panic attacks recently, no anger outburst in 3 weeks, improvement with managing his anxiety, and doing better with following through when he makes plans. Risks/Concerns:: Denies suicide ideation, plan, intention. Future oriented. Progress Toward Goals/Plan:: Progress note with client following through with anxiety exposure goal over the weekend. Slight decompensation noted with client starting to sleep in on the days he is not coming to IOP until 10:30 AM. Historically speaking client has struggled with oversleeping which then leads to increased depression. Discussed strategies to help with getting out of bed in the morning. Client is to continue working on his anxiety for ladder and encouraging him to complete the steps consistently so that he can see progress with reduction in anxiety. Time Stopped:: 11:50
--- NOTE | 2024-06-13 12:54 | BH.COMM ---
Communication Note Communication with Client Communication Note: Client called in to report he tested positive for influenza A. Client stated he would have to miss the full week of IOP this week.
== END 2024-06-20 23:59 ==
LOC: BHIOP 07:37
PROVIDERS: PCP Student in an Organized Health Care Education/Training Program; Referring Provider Psychiatry & Neurology Psychiatry; Visit Provider Psychiatry & Neurology Psychiatry
DX: F33.1 Major depressive disorder, recurrent, moderate (principal); F42.9 Obsessive-compulsive disorder, unspecified; F95.2 Tourette's disorder
CPT/HCPCS: H2012; H2020; S9480; 90832; 90834

== ENCOUNTER 2024-06-21 07:07 | Outpatient (RCR) | payer MEDICAID, SELFPAY | END 2024-07-14 12:17 | disposition home or self-care (01) | LOC: BHIOP 07:07 | PROVIDERS: PCP Student in an Organized Health Care Education/Training Program; Referring Provider Psychiatry & Neurology Psychiatry; Visit Provider Psychiatry & Neurology Psychiatry | DX: F33.1 Major depressive disorder, recurrent, moderate (principal); F42.9 Obsessive-compulsive disorder, unspecified; F95.2 Tourette's disorder | CPT/HCPCS: H2012; H2020; S9480; 90834 ==

== ENCOUNTER → 2024-11-15 | Outpatient (CLI) | payer MEDICAID, SELFPAY ==
--- NOTE | 2024-11-15 15:01 | NEURO ---
NCS and/or EMG Patient Report Ordering Doctor: Dora Carrizales DATE OF SERVICE: 11/15/24 Clinical Summary: 34 year old male patient with symptoms of numbness in the right hand. Nerve Conduction Studies Summary: Nerve conduction studies were performed in the right upper extremity. The right median-D2 SNAP distal latency was prolonged. The right median-sharma response was absent. The right median-APB CMAP distal latency was prolonged. Needle Examination Summary: Needle examination of select muscles of the right upper extremity demonstrated was normal a higher proportion of motor unit action potentials with reduced recruitment, increased amplitude, increased duration, and polyphasia in the right abductor pollicis brevis muscle. Impression: This is an abnormal study. There is electrodiagnostic evidence of a severe, right median mononeuropathy at the wrist (carpal tunnel syndrome), with secondary motor fiber axonal loss. There is no electrodiagnostic evidence of a right ulnar mononeuropathy or cervical radiculopathy. Multi Select Codes Neurology Neurology Interp Codes: 05687-45 Musc test done w/n test comp (interp) (1) and 95167-87 Nrv cndj test 7-8 studies (interp)
== END | disposition home or self-care (01) ==
LOC: PSN 13:25
PROVIDERS: PCP Student in an Organized Health Care Education/Training Program; Referring Provider Physician Assistant; Visit Provider Physician Assistant
DX: R29.898 Other symptoms and signs involving the musculoskeletal system (principal)
CPT/HCPCS: 95886; 95910